=== PATIENT | male | born 1965 | race Caucasian/White ===

== ENCOUNTER → 2016-12-12 | Outpatient (CLI) | payer BC ==
--- NOTE | 2016-12-13 08:43 | XR ---
EXAMINATION TYPE: XR knee complete LT DATE OF EXAM: 12/12/2016 11:30 AM COMPARISON: NONE HISTORY: 51-year-old male medial left knee pain TECHNIQUE: 3 views FINDINGS: Marginal spurring within the patellofemoral compartment. There may be minimal narrowing of bicompartm ental joint space. Moderate knee joint effusion is noted. No acute fracture or dislocation. IMPRESSION: 1. Some degenerative changes at the knee, particularly the patellofemoral compartment. 2. No acute osseous abnormality seen. 3. However, there is a moderate knee joint effusion. If concern for internal derangement, MRI can be performed.
== END | disposition home or self-care (01) ==
LOC: RADXRYALE 11:13
PROVIDERS: ATTEND Family Medicine
DX: M25.862 Other specified joint disorders, left knee (principal); M25.462 Effusion, left knee

== ENCOUNTER → 2019-09-30 | Day surgery (SDC) | payer OTHER ==
[2019-09-26 10:45] VITALS: BMI 47.1
[~2019-09-30] MED LIST: LACTATED RINGERS 1,000 ML IV ONE; LACTATED RINGERS 1,000 ML IV SCH; LIDOCAINE 1% 20 ML VIAL (10MG/ML) FOR IV START INTRADERMA PRN; PROPOFOL 10 MG/ML 20 ML VIAL IV ONE
[2019-09-30 08:45] VITALS: TEMP 97.7
[2019-09-30 08:45] LABS: Glucose,Whole Blood 237 mg/dL (75-99)
--- NOTE | 2019-09-30 09:45 | P.PCN ---
Date of Procedure: 09/30/19 Description of Procedure: BRIEF HISTORY: Patient is a 54-year-old male presenting for outpatient colonoscopy for screening for malignant neoplasm of the colon. No prior colonoscopies reported. Denies any change in bowel habits, blood per rectum or abdominal pain. PROCEDURE PERFORMED: Colonoscopy with polypectomy. PREOPERATIVE DIAGNOSIS: Screening for malignant neoplasm colon, no prior colonoscopy reported. ESTIMATED BLOOD LOSS: Minimal. IV sedation per Anesthesia. PROCEDURE: After informed consent was obtained, the patient, was brought into the endoscopy unit. IV sedation was administered by Anesthesia under continuous monitoring. Digital rectal examination was normal. Initially the Olympus CF-190 flexible video colonoscope was then inserted in the rectum, gradually advanced into the cecum without any difficulty. Careful examination was performed as the scope was gradually being withdrawn. Ileocecal valve and the appendiceal orifice were visualized and appeared normal. Prep was excellent. Mucosa of the cecum, ascending colon, transverse colon, descending colon, sigmoid colon, and rectum appeared normal. A few scattered smallmouth diverticula noted throughout the colon. 2 flat ascending colon polyps measuring 4-5 mm in size were removed with cold snare polypectomy. Flat 4 mm transverse colon polyp removed with cold snare polypectomy. Retroflexion was performed in the rectum and no lesions were seen. The patient tolerated the procedure well. IMPRESSION: 3 polyps removed with cold snare polypectomy in the ascending colon and transverse colon. Mild pandiverticulosis. RECOMMENDATIONS: Findings of this examination were discussed with the patient and his . Okay to resume diet. Would recommend fiber supplementation given diverticulosis. On pathology from polypectomies. Okay to resume medications. Would recommend repeat colonoscopy in 5 years pending pathology from polypectomies.
[2019-09-30 09:46] VITALS: RESP 17
[2019-09-30 09:58] VITALS: BP 131/80; PULSE 90
== END ==
LOC: ORWHC2ENDO 07:52
PROVIDERS: ATTEND Internal Medicine
DX: Z12.11 Encounter for screening for malignant neoplasm of colon (principal); D12.2 Benign neoplasm of ascending colon; D12.3 Benign neoplasm of transverse colon; K57.30 Diverticulosis of large intestine without perforation or abscess without bleeding; I10 Essential (primary) hypertension; G47.33 Obstructive sleep apnea (adult) (pediatric); E11.9 Type 2 diabetes mellitus without complications; E07.9 Disorder of thyroid, unspecified; F41.9 Anxiety disorder, unspecified; E66.01 Morbid (severe) obesity due to excess calories; Z68.42 Body mass index [BMI] 45.0-49.9, adult; Z87.891 Personal history of nicotine dependence; Z88.6 Allergy status to analgesic agent; Z79.84 Long term (current) use of oral hypoglycemic drugs; Z79.890 Hormone replacement therapy; Z79.891 Long term (current) use of opiate analgesic; Z79.899 Other long term (current) drug therapy; Z86.69 Personal history of other diseases of the nervous system and sense organs; Z98.890 Other specified postprocedural states; Z98.1 Arthrodesis status; Z99.89 Dependence on other enabling machines and devices
CPT/HCPCS: 88305; 45385; J2704

== ENCOUNTER → 2022-06-27 | Outpatient (CLI) | payer OTHER ==
--- NOTE | 2022-06-27 13:47 | XR ---
EXAMINATION TYPE: XR thoracic spine complete DATE OF EXAM: 06/27/2022 CLINICAL HISTORY: pain TECHNIQUE: Frontal, lateral, and swimmer's view of thoracic spine are obtained. COMPARISON: None. FINDINGS: Thoracic spine show satisfactory alignment without evidence of acute fracture or dislocatio n. Vertebral body heights are preserved. Moderate degenerative disc space narrowing and spondylosis midthoracic spine. Visualized ribs are unremarkable. IMPRESSION: No acute fracture or dislocation is seen in the thoracic spine. ICD 10 NO FRACTURE, INIT IAL EVALUATION
--- NOTE | 2022-06-27 13:49 | XR ---
EXAMINATION TYPE: XR ribs RT w pa chest xray DATE OF EXAM: 06/27/2022 COMPARISON: NONE HISTORY: Pain TECHNIQUE: Single view of the chest 4 views of the ribs are submitted. FINDINGS: The lungs are clear. No Evidence for pneumothorax. No evidence for focal contusion. Medi astinal structures are midline. Evaluation of the ribs fails to demonstrate evidence for displaced r ib fracture or secondary sign of rib fracture. IMPRESSION: Negative study
== END | disposition home or self-care (01) ==
LOC: RADXRYALE 13:09
PROVIDERS: ATTEND Family Medicine
DX: M54.6 Pain in thoracic spine (principal); R07.89 Other chest pain
CPT/HCPCS: 72072

== ENCOUNTER 2022-07-19 10:55 | Emergency (ER) | payer OTHER ==
--- NOTE | 2022-07-19 11:37 | ED ---
Back Pain HPI - General Chief Complaint: Back Pain/Injury Stated Complaint: right side & back pain Time Seen by Provider: 07/19/22 11:01 Source: patient, family, RN notes reviewed Mode of arrival: ambulatory Limitations: no limitations - History of Present Illness Initial Comments: This is a 57-year-old male who presents to the emergency department for back pain. Patient states that this has been progressively worsening over the last 8-9 weeks. Pain is primarily in the mid back on the right side. He feels like the area is swollen, however the pain is deeper and not easily reproduced with pressing on this area. The pain feels dull and aching in nature, and he has occasions where it shoots up into the front of his abdomen. He does have a history of multiple muscular tears in his back, and wonders if this may be the cause. He has seen his primary care provider and had x-rays of the thoracic spine, and he has been told that this is musculoskeletal. States that at this point, the pain is taking his breath away and he is unable to lift anything, and walking is becoming difficult. He is taking [place] and muscle relaxers with little to no relief. Denies any radiation of pain down his legs. He has no loss of bowel or bladder control or saddle anesthesia. Denies any fevers, chills, sore throat, cough, palpitations, abdominal pain, nausea, vomiting, diarrhea, or headaches. MD Complaint: back pain Onset/Timin -: month(s) - Related Data Home Medications Medication Instructions Recorded Confirmed Levothyroxine Sodium [Synthroid] 137 mcg PO DAILY 01/04/16 07/19/22 ALPRAZolam [Xanax] 1 mg PO DAILY PRN 09/26/19 07/19/22 Ascorbic Acid [Vitamin C] 6,000 mg PO DAILY 07/19/22 07/19/22 Baclofen [Lioresal] 10 - 20 mg PO TID PRN 07/19/22 07/19/22 Calm Magnesium Drink 1 bottle PO HS 07/19/22 07/19/22 Dulaglutide [Trulicity] 3 mg SQ MO 07/19/22 07/19/22 Glimepiride [Amaryl] 4 mg PO BID 07/19/22 07/19/22 HYDROcodone/APAP 7.5-325MG [[place] 1 tab PO DAILY PRN 07/19/22 07/19/22 7.5-325] Turmeric(Unknown) 4 tab PO BID 07/19/22 07/19/22 Vitamin B Complex 1 cap PO DAILY 07/19/22 07/19/22 Vitamin D3 W/Vitamin K 1 tab PO DAILY 07/19/22 07/19/22 Zinc Gluconate [Zinc] 50 mg PO DAILY 07/19/22 07/19/22 sitaGLIPtin [Januvia] 100 mg PO DAILY 07/19/22 07/19/22 Previous Rx's Medication Instructions Recorded Orphenadrine [Norflex] 100 mg PO Q12H PRN #20 tab 07/19/22 lisinopriL [Prinivil] 10 mg PO DAILY #15 tab 07/19/22 predniSONE 50 mg PO DAILY 5 Days #5 tablet 07/19/22 Allergies Allergy/AdvReac Type Severity Reaction Status Date / Time aspirin AdvReac Abdominal Verified 07/19/22 12:22 Pain Review of Systems ROS Statement: Those systems with pertinent positive or pertinent negative responses have been documented in the HPI. ROS Other: All systems not noted in ROS Statement are negative. Past Medical History Past Medical History: CVA/TIA, Diabetes Mellitus, Myocardial Infarction ([place]), Sleep Apnea/CPAP/BIPAP, Thyroid Disorder Additional Past Medical History / Comment(s): states possible tia and silent [place] Last Myocardial Infarction Date:: ?silent History of Any Multi-Drug Resistant Organisms: None Reported Past Surgical History: Back Surgery, Orthopedic Surgery Additional Past Surgical History / Comment(s): aundrea carpal tunnel, neck fusion, lower back surgery, laminectomy and discectomy Past Anesthesia/Blood Transfusion Reactions: No Reported Reaction Past Psychological History: Anxiety Smoking Status: Never smoker Past Alcohol Use History: Occasional Past Drug Use History: None Reported - Past Family History Mother Family Medical History: No Reported History General Exam Limitations: no limitations General appearance: alert, in distress Head exam: Present: atraumatic, normocephalic, normal inspection Respiratory exam: Present: normal lung sounds bilaterally. Absent: respiratory distress, wheezes, rales, rhonchi, stridor Cardiovascular Exam: Present: regular rate, normal rhythm, normal heart sounds. Absent: systolic murmur, diastolic murmur, rubs, gallop, clicks GI/Abdominal exam: Present: normal bowel sounds. Absent: distended, tenderness, pulsatile mass Back exam: Present: normal inspection. Absent: full ROM (secondary to pain), tenderness Neurological exam: Present: alert, oriented X3, CN II-XII intact Psychiatric exam: Present: normal affect, normal mood Skin exam: Present: warm, dry, intact, normal color. Absent: rash Course Vital Signs 07/19/22 07/19/22 07/19/22 10:57 13:07 15:58 Temperature 98.2 F 97.9 F 97.8 F Pulse Rate 84 81 85 Respiratory 20 18 16 Rate Blood Pressure 202/98 218/113 204/98 O2 Sat by Pulse 96 94 L 93 L Oximetry 07/19/22 16:01 Temperature Pulse Rate 85 Respiratory 16 Rate Blood Pressure 184/121 O2 Sat by Pulse 93 L Oximetry Medical Decision Making - Medical Decision Making This is a 57-year-old male who presents to the emergency department with back pain. The patient does have multiple concerning comorbidities, including prior myocardial infarctions and TIAs. Given that he has already had x-rays with no identifiable findings, will obtain a computed tomography scan of the thoracic and lumbar spine as well as the abdomen and pelvis to look for other etiologies. Lab work obtained and found to be nonactionable, including infectious counts and inflammatory markers. My interpretation of the computed tomography scan of the abdomen and pelvis identifies no evidence of ureteral calculus, gallstones, or an aortic aneurysm. Interpretation of the computed tomography scan of the thoracic and lumbar spine identifies no signs of fractures or dislocations. Case discussed with the attending, Dr. Lee. He advised getting a d-dimer to look for signs of a pulmonary embolus. This was discussed with the patient, who states that he has had elevated d-dimer is in the past. His, the decision was made to proceed with the CTA of the chest without obtaining the d-dimer prior. My interpretation of the CTA chest reveals no evidence of a pulmonary embolus, localized consolidations, or infiltrates. He was given Decadron and Norflex through his IV, which he states offered some improvement to his symptoms. He was also given a dose of hydralazine due to his elevated blood pressure. Patient denies any history of blood pressure problems and states that it is due to his pain. Advised that his pain is likely playing a large role in this, however based on how elevated it is, he does likely have underlying hypertension. Blood pressure did improve to 184 systolically, I advised an additional dose of medication, however he declined despite my strongest recommendations. Prescription for a 5 day course of prednisone, Norflex, and lisinopril provided. Advised he avoid taking Norflex with the other muscle relaxant, as this will increase the sedative effects. He is also instructed to start taking the lisinopril daily, I advised that ongoing elevated blood pressure increases his risks for heart attack and stroke, which he has already had. He will need to follow-up with his primary care provider to see if continuing the lisinopril is indicated. Information for orthopedic follow-up with Dr. Hanley was provided. Instructed him to contact his office first thing in the morning for a follow-up appointment. Return precautions reviewed in depth, the patient is instructed to return to the emergency department with any new, worsening, or concerning symptoms. Patient verbalized understanding. This case was discussed in detail with the attending ED physician. Presentation, findings, and treatment plan discussed in detail as well. - Lab Data Result diagrams: 07/19/22 11:32 07/19/22 11:32 Lab Results 07/19/22 07/19/22 07/19/22 Range/Units 11:32 11:32 14:49 WBC 6.4 (3.8-10.6) k/uL RBC 6.05 H (4.30-5.90) m/uL Hgb 16.2 (13.0-17.5) gm/dL Hct 48.4 (39.0-53.0) % MCV 80.0 (80.0-100.0) fL MCH 26.7 (25.0-35.0) pg MCHC 33.4 (31.0-37.0) g/dL RDW 12.9 (11.5-15.5) % Plt Count 269 (150-450) k/uL MPV 8.5 Neutrophils % 57 % Lymphocytes % 31 % Monocytes % 7 % Eosinophils % 2 % Basophils % 1 % Neutrophils # 3.6 (1.3-7.7) k/uL Lymphocytes # 2.0 (1.0-4.8) k/uL Monocytes # 0.4 (0-1.0) k/uL Eosinophils # 0.2 (0-0.7) k/uL Basophils # 0.1 (0-0.2) k/uL ESR 4 (0-15) mm/hr Sodium 139 (137-145) mmol/L Potassium 4.6 (3.5-5.1) mmol/L Chloride 99 (98-107) mmol/L Carbon Dioxide 28 (22-30) mmol/L Anion Gap 12 mmol/L BUN 15 (9-20) mg/dL Creatinine 0.69 (0.66-1.25) mg/dL Est GFR (CKD-EPI)AfAm >90 (>60 ml/min/1.73 sqM) Est GFR (CKD-EPI)NonAf >90 (>60 ml/min/1.73 sqM) Glucose 187 H (74-99) mg/dL Calcium 9.5 (8.4-10.2) mg/dL Total Bilirubin 0.5 (0.2-1.3) mg/dL AST 28 (17-59) U/L ALT 39 (4-49) U/L Alkaline Phosphatase 44 (38-126) U/L C-Reactive Protein 0.5 (<1.0) mg/dL Total Protein 7.8 (6.3-8.2) g/dL Albumin 4.7 (3.5-5.0) g/dL Urine Color Light Yellow Urine Appearance Clear (Clear) Urine pH 5.0 (5.0-8.0) Ur Specific Colon 1.010 (1.001-1.035) Urine Protein Trace H (Negative) Urine Glucose (UA) 1+ H (Negative) Urine Ketones Negative (Negative) Urine Blood Negative (Negative) Urine Nitrite Negative (Negative) Urine Bilirubin Negative (Negative) Urine Urobilinogen <2.0 (<2.0) mg/dL Ur Leukocyte Esterase Negative (Negative) - Radiology Data Radiology results: report reviewed, image reviewed Disposition Clinical Impression: Thoracic back pain, Elevated blood pressure reading without diagnosis of hypertension Disposition: HOME SELF-CARE Instructions (If sedation given, give patient instructions): Back Pain (ED) Additional Instructions: Return to the emergency department with any new, worsening, or concerning symptoms. Take the prednisone daily for 5 days. You can take the Norflex twice daily as needed, however do not take the other muscle relaxant if you choose to take this. Also be aware that the Norflex will also be sedating. Begin taking the blood pressure medication daily. You will need to follow up with your primary care provider to discuss if this needs to be continued. Contact Dr. Hanley, orthopedics, as listed below for a follow-up appointment as soon as possible. Follow up with your primary care provider in 1-2 days. Prescriptions: Orphenadrine [Norflex] 100 mg PO Q12H PRN #20 tab PRN Reason: Pain predniSONE 50 mg PO DAILY 5 Days #5 tablet lisinopriL [Prinivil] 10 mg PO DAILY #15 tab Is patient prescribed a controlled substance at d/c from ED?: No Referrals: Telly Christian DO [Primary Care Provider] - 1-2 days Adam Hanley DO [Doctor of Osteopathic Medicine] - 1-2 days
[2022-07-19 11:38] LABS: Basophils # (A) 0.1 k/uL (0-0.2); Basophils % (A) 1 %; Eosinophils # (A) 0.2 k/uL (0-0.7); Eosinophils % (A) 2 %; HCT 48.4 % (39.0-53.0); HGB 16.2 gm/dL (13.0-17.5); Lymphocytes % (A) 31 %; MCH 26.7 pg (25.0-35.0); MCHC 33.4 g/dL (31.0-37.0); Mean Platelet Volume 8.5; Monocytes # (A) 0.4 k/uL (0-1.0); Monocytes % (A) 7 %; Neutrophils # (A) 3.6 k/uL (1.3-7.7); Neutrophils % (A) 57 %; Platelet Count 269 k/uL (150-450); RBC 6.05 m/uL (4.30-5.90); RDW 12.9 % (11.5-15.5); WBC 6.4 k/uL (3.8-10.6)
[2022-07-19 12:11] LABS: ALT 39 U/L (4-49); AST 28 U/L (17-59); African American GFR (CKD) >90 (>60 ml/min/1.73 sqM); Albumin 4.7 g/dL (3.5-5.0); Alkaline Phosphatase 44 U/L (38-126); Anion Gap 12 mmol/L; Blood Urea Nitrogen 15 mg/dL (9-20); C Reactive Protein 0.5 mg/dL (<1.0); Calcium 9.5 mg/dL (8.4-10.2); Carbon Dioxide 28 mmol/L (22-30); Chloride 99 mmol/L (98-107); Glucose 187 mg/dL (74-99); Non-African American GFR(CKD) >90 (>60 ml/min/1.73 sqM); Potassium 4.6 mmol/L (3.5-5.1); Sodium 139 mmol/L (137-145); Total Bilirubin 0.5 mg/dL (0.2-1.3); Total Protein 7.8 g/dL (6.3-8.2)
--- NOTE | 2022-07-19 13:18 | CT ---
EXAMINATION TYPE: CT abdomen pelvis wo con DATE OF EXAM: 07/19/2022 HISTORY: Back and Abdominal pain, No injury CT DLP: 4620.4 mGycm. Automated Exposure Control for Dose Reduction was Utilized. TECHNIQUE: CT scan of the abdomen and pelvis is performed without oral or IV contrast. CT of the tho racolumbar spine performed without contrast. COMPARISON: NONE FINDINGS: Within the limitations of a non-contrast study, the following observations are made. LUNG BASES: No significant abnormality is appreciated. LIVER/GB: Liver is diffusely low dense consistent with diffuse fatty infiltration. PANCREAS: No significant abnormality is seen. SPLEEN: No significant abnormality is seen. ADRENALS: No significant abnormality is seen. KIDNEYS: No renal stones or hydronephrosis seen bilaterally. Bladder wall mildly thickened up to 6 mm with some nondependent air suspected. Correlate clinically for recent catheterization otherwise othe r etiologies need to be considered. BOWEL: Diverticula in the left and sigmoid colon. No CT evidence for acute diverticulitis. Normal-rebeca earing appendix from base of cecum. GENITAL ORGANS: Normal size prostate. Adjacent scattered tiny pelvic phleboliths. LYMPH NODES: No greater than 1cm abdominal or pelvic lymph nodes are appreciated. OSSEOUS STRUCTURES: Moderate axial joint space loss both hips. OTHER: Small intramuscular lipoma anterior left thigh region coronal image 77 measures 3.0 x 1.2 cm. Thoracolumbar spine: Imaging the anterior superior T2 level. There are 5 lumbar-type vertebra. Verteb ral body heights and disc space heights are maintained through the thoracic and lumbar spine. No acut e displaced fracture. Vacuum disc phenomenon and disc calcification L4-L5 level. Spinal canal grossly preserved. Visualized ribs are intact bilaterally. Some lateral spurring in the lower thoracic spine is present. IMPRESSION: 1. Mild abnormal wall thickening to the bladder with nondependent air. Correlate to exclude gas-formi ng infection. Correlate for recent catheterization otherwise other etiologies need to be considered. Otherwise no acute findings are evident. No acute fracture or dislocation in the thoracic or lumbar s pine.
[2022-07-19] MEDS ORDERED: DEXAMETHASONE SOD PHOSPHATE 10 MG/ML 1 ML VIAL IVP STA (14:41)
[2022-07-19] MEDS ORDERED: ORPHENADRINE 30 MG/ML 2 ML VIAL IVP STA (14:41)
[2022-07-19] MEDS ORDERED: hydrALAZINE HCL 20 MG/ML 1 ML VIAL IVP STA (14:48)
[2022-07-19 15:12] LABS: Appearance,Urine Clear (Clear); Bilirubin,Urine Negative (Negative); Blood,Urine Negative (Negative); Color,Urine Light Yellow; Glucose,Urine (UA) 1+ (Negative); Ketones,Urine Negative (Negative); Leukocyte Esterase,Urine Negative (Negative); Nitrite,Urine Negative (Negative); Protein,Urine Trace (Negative); Urobilinogen,Urine <2.0 mg/dL (<2.0)
[2022-07-19 15:24] LABS: Erythrocyte Sedimentation Rate 4 mm/hr (0-15)
--- NOTE | 2022-07-19 15:29 | CT ---
EXAMINATION TYPE: CT chest angio for PE DATE OF EXAM: 07/19/2022 COMPARISON: None HISTORY: Chest/back pain, SOB. CT DLP: 891.8 mGycm CONTRAST: CT chest with contrast and 3D reconstruction with MIP imaging is performed with IV Contrast, patient injected with 100 mL of Isovue 370. Contrast-enhanced CT of the chest was performed through the course of the pulmonary arteries with julia g and mediastinal window settings submitted. 3D reconstruction with MIP imaging was also performed. PULMONARY ARTERIES: The pulmonary arteries and their major tributaries are patent. I do not see ike dence for sizable filling defect to suggest pulmonary embolic process. LUNGS: The lungs are clear and free of infiltrate. No evidence for atelectasis. No pulmonary nodule or mass is detected. No pleural effusion. MEDIASTINUM: Thoracic aorta is of normal caliber. Correlate clinically . The heart is not enlarged. No evidence for mediastinal mass. No mediastinal lymph nodes greater than 1cm. HILAR STRUCTURES: No evidence for mass. No hilar lymph nodes greater than 1 cm. UPPER ABDOMEN: No significant abnormality is seen. IMPRESSION: 1. No evidence for Pulmonary embolism at this time.
[2022-07-19 15:58] VITALS: PULSE 85; RESP 16; TEMP 97.8
[2022-07-19 16:01] VITALS: BP 184/121
== END 2022-07-19 16:40 | disposition home or self-care (01) ==
LOC: EC 10:55
DX: M54.6 Pain in thoracic spine (principal); R03.0 Elevated blood-pressure reading, without diagnosis of hypertension; Z86.73 Personal history of transient ischemic attack (TIA), and cerebral infarction without residual deficits; E11.9 Type 2 diabetes mellitus without complications; I25.2 Old myocardial infarction; E07.9 Disorder of thyroid, unspecified; Z88.6 Allergy status to analgesic agent; F41.9 Anxiety disorder, unspecified; Z79.890 Hormone replacement therapy; Z79.899 Other long term (current) drug therapy
CPT/HCPCS: 36415; 80053; 85652; 85025; 86140; 81003; 72128; 72131; 71275; 74176; 99284; 96374; 96375 ×2; J0360; J1100; J2360; Q9967

== ENCOUNTER → 2022-08-25 | Outpatient (CLI) | payer OTHER ==
--- NOTE | 2022-08-25 16:30 | NM ---
EXAMINATION TYPE: NM bone 3 phase DATE OF EXAM: 08/25/2022 COMPARISON: NONE HISTORY: Intercostal pain Triple phase bone scintigraphy was performed following the injection of 24 mCi Tc 99m MDP. Immediate images and 5.5 hours post injection images acquired. FINDINGS: Blood flow: There is normal blood distribution on the initial blood flow images. Normal Uptake is not ed within the heart. A suspicious focal accumulation is not identified. Blood pool: Blood pool distribution appears normal. Focal contrast is noted within the bilateral kidn eys appears symmetrical. Static images: There may be some uptake along the posterior right to a lesser degree left lower thora cic level. This appears to be T10 or possibly T11 region. This could be degenerative in nature. No co rresponding uptake on blood pool or blood flow images is evident. No suspicious focal uptake is otherwise identified. IMPRESSION: 1. Focal uptake static images that would appear to be the T10 region posteriorly could be related to degenerative change. Correlate with location of patient's pain. 2. Suspicious three-phase uptake to suggest infection is not identified.
== END | disposition home or self-care (01) ==
LOC: RADNMMAIN 07:01
PROVIDERS: ATTEND Family Medicine
DX: R07.82 Intercostal pain (principal); R07.89 Other chest pain
CPT/HCPCS: 78315; A9503

== ENCOUNTER → 2022-11-03 | Outpatient (CLI) | payer OTHER ==
[2022-11-03 08:46] VITALS: BP 199/99; PULSE 82; RESP 16; TEMP 98.6
--- NOTE | 2022-11-03 14:42 | P.PAINPG ---
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 Pt states he experienced 60 % pain relief x 3 wks s/p procedure. Pain level is provoked at 8 /10 in intensity, constant, localized in the thoracic spine, dull, sharp in character w shooting towards the R ribs. Pain is provoked by bending. Pain is alleviated with PT x 5 wks which he is currently in, home exercise regimen, massages from his , use of TENS unit at home, alternating heat & ice, medications ([place], Baclofen), topical, repositioning and rest. Interventional pain procedures completed include ROME T10-11 Patient is currently on [place], Baclofen Patient denies any side effects of the medication(s), denies excessive drowsiness or sleepiness, denies suicidal ideation and reports that the current pain medication is helping to control the pain and improve activities of daily living. Patient denies any motor or sensory deficits. Patient denies any fever or night sweats, denies any change in the bowel movements or urination. Physical Examination: -Constitutional: Cooperative. Not in acute distress . - Neurologic: Cranial nerve II to XII intact. No focal neurological deficits. - Psychatric: Alert & oriented x 3. Matching mood & appropriate affect. Judgment and insight intact. - Musculoskeletal: Cervical spine: Muscle bulk/ tone/ strength in the bilateral upper extremities normal Vertebral body tenderness to palpation over Sp[place]ling test positive Distraction test positive Facet loading test positive TTP Thoracic spine Muscle bulk / tone/ strength in the bilateral paraspinal muscles normal Vertebral body tender to palpation over over T10 Facet loading test positive TTP Lumbar spine: Motor bulk/ tone/ strength lower extremities , thigh and legs : 5/5 Deep tendon reflexes : Normal Knee Jerk. Normal Ankle Jerk . Vertebral body tenderness to palpation over Lumbar Facet Loading Test positive Straight Leg Raise: positive at 30 degrees right side/ left side Gaenslen's Test positive Sacral spine : Severe tenderness over the Sacroiliac joint: right side / left side Range of motion: Flexion of the lumbar spine <60 degrees Range of motion: Extension of the lumbar spine <20 degrees Gaenslen's Test positive right side / left side Machelle test: positive right side / left side Thigh Thrust Test positive right side / left side Sacral Thrust Test positive right side / left side Assessment and plan: Chronic mid back secondary to thoracic DDD, spondylosis with facet arthropathy without myelopathy Recommendation of R paramedian ROME T10-T11. May need a series of injections for optimal pain relief. Risks, benefits of procedure discussed and pt verbalized understanding. Admits to anticoagulant use or medical history of diabetes. Protocol for discontinuation/ continuation of medications tess procedure discussed. All questions answered. I have spent less than 30 minutes on patient care today. Dr Rascon was available by phone for the evaluation of this patient. The time was used to review the medical records including relevant urine studies and Prescription history (MAPs), review of the available imaging, evaluation and examination of the patient, coordination of care with the medical staff and if applicable referring physicians, as well as creation of the medical record PQRS Narrative: Smoking Status Former smoker Hx Alcohol Use (MH) No Home Medications: Ambulatory Orders Levothyroxine Sodium [Synthroid] 137 mcg PO DAILY 01/04/16 ALPRAZolam [Xanax] 1 mg PO DAILY PRN 09/26/19 Ascorbic Acid [Vitamin C] 6,000 mg PO DAILY 07/19/22 Baclofen [Lioresal] 10 - 20 mg PO TID PRN 07/19/22 Calm Magnesium Drink 1 bottle PO HS 07/19/22 HYDROcodone/APAP 7.5-325MG [[place] 7.5-325] 1 tab PO DAILY PRN 07/19/22 Turmeric(Unknown) 4 tab PO BID 07/19/22 Vitamin B Complex 1 cap PO DAILY 07/19/22 Vitamin D3 W/Vitamin K 1 tab PO DAILY 07/19/22 Zinc Gluconate [Zinc] 50 mg PO DAILY 07/19/22 sitaGLIPtin [Januvia] 100 mg PO DAILY 07/19/22 Controlled Substance Measures - Controlled Substance Measures Is patient prescribed a controlled substance at discharge?: No
== END ==
LOC: PNWHC3 07:58
PROVIDERS: ATTEND Specialist
DX: M51.34 Other intervertebral disc degeneration, thoracic region (principal); M47.814 Spondylosis without myelopathy or radiculopathy, thoracic region; Z88.6 Allergy status to analgesic agent; Z87.891 Personal history of nicotine dependence
CPT/HCPCS: 99211

== ENCOUNTER 2022-11-17 07:02 | Day surgery (SDC) | payer OTHER ==
[2022-11-17] MEDS ORDERED: LACTATED RINGERS 1,000 ML IV SCH (07:14)
[2022-11-17] MEDS ORDERED: LIDOCAINE 1% (10MG/ML) FOR IV START INTRADERMA PRN (07:14)
[2022-11-17 07:25] VITALS: TEMP 97.9
[2022-11-17 07:25] LABS: Glucose,Whole Blood 256 mg/dL (70-110)
[2022-11-17] MEDS ORDERED: INSULIN ASPART (NovoLOG) 100 UNIT/ML VIAL SQ ONE (07:38)
[2022-11-17] MEDS ORDERED: methylPREDNISolone ACETATE 40 MG/ML 1 ML VIAL ONE (07:53)
[2022-11-17] MEDS ORDERED: IOPAMIDOL M200 10 ML VIAL ONE (07:53)
--- NOTE | 2022-11-17 08:05 | P.PCN ---
Date of Procedure: 11/17/22 Procedure(s) Performed: PREOPERATIVE DIAGNOSIS: 1-Thoracic Degenerative Disc Diseases 2-Thoracic Radiculopathy. POSTOPERATIVE DIAGNOSIS: Same as preop diagnosis. PROCEDURE 1. Thoracic epidural steroid injection under fluoroscopic guidance at the T10- 11 level.( right paramedial ) (Fluoroscopy imaging was available in radiology department) 2. Thoracic epidurogram. ANESTHESIA: Local anesthesia with lidocaine 1% 3 mL only EBL: Minimal PROCEDURE INDICATION: The patient with mid back pain and radiculitis symptoms unresponsive to conservative treatment. Fluoroscopy was used to optimize visualization of the needle placement and to maximize safety. PROCEDURE DESCRIPTION / TECHNIQUE: The patient was seen and identified in the preoperative area. Risks, benefits, complications including but not limited to infections ,bleeding ,allergic reaction to the medications ,nerve damage and not complete pain releife , and alternatives were discussed with the patient. The patient agreed to proceed with the procedure and signed the consent. IV was started, and vital signs were sta ble. Patient was taken to the OR and time out was completed. The patient was placed in the prone position on procedure table and a pillow was placed under the abdomen to reduce lumbar lordosis. The thoracolumbar area was prepped and draped in the usual sterile fashion.ere closely monitored during the procedure.. Vital signs was monitered during the entire procedure. Using anterior-posterior fluoroscopy, the T10-11 ( right paramedial ) interlaminar space was identified and the skin over this site was marked and then infiltrated with 1% lidocaine subcutaneously. Subsequently, a 20-gauge T uohy epidural needle was inserted and advanced toward the epidural space using the ``Loss of resistance technique and guided by AP and lateral fluoroscopy. The correct needle position in the epidural space was verified with the injection of 2 mL of the water soluble contrast dye Isovue 200 contrast and observing an excellent epidurogram with the epidural spread of the dye, after negative aspiration for blood and CSF and in the absence of paresthesias. Again after negative aspiration, a 5 ml mixture containing 40 mg of Depo-medrol ( Preservetive Free ), and 2 ml of preservative free Normal Saline, and 2 ml of preservative free lidocaine 1% solution was injected and a washout of epidurogram was seen. Needle was withdrawn intact, skin was cleansed, and bandages were applied. COMPLICATIONS: None DISPOSITION / PLANS: The patient was placed in a supine position and transferred to the recovery area in a stable condition for observation. There was no evidence of lower extremity motor or sensory deficit after the procedure. Patient was discharged from the recovery room after meeting discharge criteria. Home discharge instructions were given to the patient by the staff. The patient was reexamined prior to discharge. The patient will schedule a follow up in the clinic in 2-4 weeks.
[2022-11-17] MEDS ORDERED: IV FLUID CONTINUATION 800 ML IV ONE (08:07)
[2022-11-17 08:09] VITALS: RESP 16
--- NOTE | 2022-11-17 08:11 | FL ---
Fluoroscopy INDICATION: Pain FINDINGS: Fluoroscopy time: 3 seconds. DAP: 0.85664 mGycm^2 Images obtained: 2. IMPRESSIONS: 1. Documentation of fluoroscopy.
[2022-11-17 08:23] VITALS: BP 175/96; PULSE 90
== END 2022-11-17 08:37 | disposition home or self-care (01) ==
LOC: ORPAIN 07:02
PROVIDERS: ATTEND Specialist
DX: M51.14 Intervertebral disc disorders with radiculopathy, thoracic region (principal)
CPT/HCPCS: 62321; J1030; Q9966

== ENCOUNTER → 2022-12-08 | Outpatient (CLI) | payer OTHER ==
[2022-12-08 08:36] VITALS: BP 215/100; PULSE 73; RESP 16; TEMP 98.2
--- NOTE | 2022-12-08 14:55 | P.PAINPG ---
PQRS Measure Charge Sheet Comment: A 57 yr old male with a history of severe and chronic mid back pain secondary to thoracic DDD and spondylosis with facet arthropathy without myelopathy presents today for evaluation s/p ROME T10-11. Pt states he experienced 80 % pain relief x 3 wks s/p procedure. Pain level is provoked at 7 /10 in intensity, constant, localized in the R thoracic spine, achy in character w/o shooting pain. Pain is provoked by over activity. Pain is alleviated with PT integrated w massage x 5 wks w 6 visits left which he is currently in, heat, ice, medications, repositioning and rest. Interventional pain procedures completed include ROME T10-11 Patient is currently on [place], [place], muscle relaxer Patient denies any side effects of the medication(s), denies excessive drowsiness or sleepiness, denies suicidal ideation and reports that the current pain medication is helping to control the pain and improve activities of daily living. Patient denies any motor or sensory deficits. Patient denies any fever or night sweats, denies any change in the bowel movements or urination. Physical Examination: -Constitutional: Cooperative. Not in acute distress . - Neurologic: Cranial nerve II to XII intact. No focal neurological deficits. - Psychatric: Alert & oriented x 3. Matching mood & appropriate affect. Judgment and insight intact. - Musculoskeletal: Cervical spine: Muscle bulk/ tone/ strength in the bilateral upper extremities normal Vertebral body tenderness to palpation over Spurling test positive Distraction test positive Facet loading test positive TTP Thoracic spine Muscle bulk / tone/ strength in the bilateral paraspinal muscles normal Vertebral body tender to palpation over T10 Diffuse TTP over R T8-T11 paraspinal muscles Facet loading test positive TTP Lumbar spine: Motor bulk/ tone/ strength lower extremities , thigh and legs : 5/5 Deep tendon reflexes : Normal Knee Jerk. Normal Ankle Jerk . Vertebral body tenderness to palpation over Lumbar Facet Loading Test positive Straight Leg Raise: positive at 30 degrees right side/ left side Gaenslen's Test positive Sacral spine : Severe tenderness over the Sacroiliac joint: right side / left side Range of motion: Flexion of the lumbar spine <60 degrees Range of motion: Extension of the lumbar spine <20 degrees Gaenslen's Test positive right side / left side Machelle test: positive right side / left side Thigh Thrust Test positive right side / left side Sacral Thrust Test positive right side / left side Assessment and plan: Chronic mid back pain secondary to thoracic DDD, spondylosis with facet arthropathy without myelopathy Recommendation of ROME T10-11. May need a series of injections for optimal pain relief.. Risks, benefits of procedure discussed and pt verbalized understanding. Admits to anticoagulant use or medical history of diabetes. Protocol for discontinuation/ continuation of medications tess procedure discussed. All questions answered. I have spent less than 30 minutes on patient care today. Dr Rascon was available by phone for the evaluation of this patient. The time was used to review the medical records including relevant urine studies and Prescription history (MAPs), review of the available imaging, evaluation and examination of the patient, coordination of care with the medical staff and if applicable referring physicians, as well as creation of the medical record PQRS Narrative: Smoking Status Former smoker Hx Alcohol Use (MH) No Home Medications: Ambulatory Orders Levothyroxine Sodium [Synthroid] 137 mcg PO DAILY 01/04/16 ALPRAZolam [Xanax] 1 mg PO DAILY PRN 09/26/19 Ascorbic Acid [Vitamin C] 6,000 mg PO DAILY 07/19/22 Calm Magnesium Drink 1 bottle PO HS 07/19/22 HYDROcodone/APAP 7.5-325MG [[place] 7.5-325] 1 tab PO DAILY PRN 07/19/22 Turmeric(Unknown) 4 tab PO BID 07/19/22 Vitamin B Complex 1 cap PO DAILY 07/19/22 Vitamin D3 W/Vitamin K 1 tab PO DAILY 07/19/22 Zinc Gluconate [Zinc] 50 mg PO DAILY 07/19/22 sitaGLIPtin [Januvia] 100 mg PO DAILY 07/19/22 Controlled Substance Measures - Controlled Substance Measures Is patient prescribed a controlled substance at discharge?: No
== END ==
LOC: PNWHC3 07:05
PROVIDERS: ATTEND Specialist
DX: M51.34 Other intervertebral disc degeneration, thoracic region (principal); M47.816 Spondylosis without myelopathy or radiculopathy, lumbar region; G89.29 Other chronic pain; Z87.891 Personal history of nicotine dependence; Z88.6 Allergy status to analgesic agent
CPT/HCPCS: 99211

== ENCOUNTER 2022-12-22 09:12 | Day surgery (SDC) | payer OTHER ==
[2022-12-22 09:35] VITALS: RESP 18; TEMP 98.3
[2022-12-22] MEDS ORDERED: LACTATED RINGERS 1,000 ML IV ONE (09:45)
[2022-12-22 09:46] LABS: Glucose,Whole Blood 237 mg/dL (70-110)
[2022-12-22] MEDS ORDERED: INSULIN ASPART (NovoLOG) 100 UNIT/ML VIAL SQ ONE (09:54)
[2022-12-22] MEDS ORDERED: methylPREDNISolone ACETATE 40 MG/ML 1 ML VIAL ONE (10:20)
[2022-12-22] MEDS ORDERED: fentaNYL (PF) 50 MCG/ML 2 ML AMP ONE (10:20)
[2022-12-22] MEDS ORDERED: MIDAZOLAM 2 MG/2 ML VIAL ONE (10:20)
[2022-12-22] MEDS ORDERED: IOPAMIDOL M200 10 ML VIAL ONE (10:20)
--- NOTE | 2022-12-22 10:32 | P.PCN ---
Date of Procedure: 12/22/22 Procedure(s) Performed: PREOPERATIVE DIAGNOSIS: 1-Thoracic Degenerative Disc Diseases 2-Thoracic Radiculopathy. POSTOPERATIVE DIAGNOSIS: Same as preop diagnosis. PROCEDURE 1. Thoracic epidural steroid injection under fluoroscopic guidance at the T10- 11 level.( right paramedial ) (Fluoroscopy imaging was available in radiology department) 2. Thoracic epidurogram. ANESTHESIA: moderate sedation with intravenous Versed 2 mg ,and fentanyle 100 Mcg Sedation start time : 1020 Sedation end time : 1030 EBL: Minimal PROCEDURE INDICATION: The patient with mid back pain and radiculitis symptoms unresponsive to conservative treatment. Fluoroscopy was used to optimize visualization of the needle placement and to maximize safety. PROCEDURE DESCRIPTION / TECHNIQUE: The patient was seen and identified in the preoperative area. Risks, benefits, complications including but not limited to infections ,bleeding ,allergic reaction to the medications ,nerve damage and not complete pain releife , and alternatives were discussed with the patient. The patient agreed to proceed with the procedure and signed the consent. IV was started, and vital signs were stable. Patient was taken to the OR and time out was completed. The patient was placed in the prone position on procedure table and a pillow was placed under the abdomen to reduce lumbar lordosis. The lumbosacral area was prepped and draped in the usual sterile fashion.ere closely monitored during the procedure. Conscious sedation was used during the procedure to decrease patients anxiety. Vital signs was monitered during the entire procedure. Using anterior-posterior fluoroscopy, the T10-11 ( right paramedial ) interlaminar space was identified and the skin over this site was marked and then infiltrated with 1% lidocaine subcutaneously. Subsequently, a 20-gauge Tuohy epidural needle was inserted and advanced toward the epidural space using the ``Loss of resistance technique and guided by AP and lateral fluoroscopy. The correct needle position in the epidural space was verified with the injection of 2 mL of the water soluble contrast dye Isovue 200 contrast and observing an excellent epidurogram with the epidural spread of the dye, after negative aspiration for blood and CSF and in the absence of paresthesias. Again after negative aspiration, a 5 ml mixture containing 40 mg of Depo-medrol ( Preservetive Free ), and 2 ml of preservative free Normal Saline, and 2 ml of preservative free lidocaine 1% solution was injected and a washout of epidurogram was seen. Needle was withdrawn intact, skin was cleansed, and b andages were applied. COMPLICATIONS: None DISPOSITION / PLANS: The patient was placed in a supine position and transferred to the recovery area in a stable condition for observation. There was no ike dence of lower extremity motor or sensory deficit after the procedure. Patient was discharged from the recovery room after meeting discharge criteria. Home discharge instructions were given to the patient by the staff. The patient was reexamined prior to discharge. The patient will schedule a follow up in the clinic in 2-4 weeks.
[2022-12-22] MEDS ORDERED: IV FLUID CONTINUATION 700 ML IV ONE (10:38)
[2022-12-22 10:48] LABS: Glucose,Whole Blood 242 mg/dL (70-110)
[2022-12-22 11:11] VITALS: BP 167/82; PULSE 76
--- NOTE | 2022-12-22 15:50 | FL ---
EXAMINATION TYPE: FL guided pain mgmt statistic DATE OF EXAM: 12/22/2022 FLUOROSCOPY Fluoroscopy time of 2 seconds was used during thoracic epidural injection. 1 image/s document/s the procedure. DOSE AREA PRODUCT (DAP) UGY*M,MGY*CM: 0.0136.
== END 2022-12-22 11:10 | disposition home or self-care (01) ==
LOC: ORPAIN 09:12
PROVIDERS: ATTEND Specialist
DX: M51.14 Intervertebral disc disorders with radiculopathy, thoracic region (principal); Z88.6 Allergy status to analgesic agent
CPT/HCPCS: 62321; 99152; J2250; J1030; J3010; Q9966

== ENCOUNTER → 2023-01-09 | Outpatient (CLI) | payer OTHER ==
[2023-01-09 08:48] VITALS: BP 173/109; PULSE 75; RESP 18; TEMP 98.4
--- NOTE | 2023-01-12 07:40 | P.PAINPG ---
PQRS Measure Charge Sheet Comment: A 57 yr old male with a history of severe and chronic mid back pain secondary to thoracic DDD and spondylosis with facet arthropathy without myelopathy presents today for evaluation s/p ROME T10-11. Pt states he experienced 80% pain relief x 3 wks s/p procedure. Pain level is provoked at 5/10 in intensity, constant, localized in the R thoracic spine, stinging in character w shooting towards the R flank. Pain is provoked by . Pain is alleviated with PT x 6 wks in December 2022, medications, topical, laser light therapy, repositioning and rest. Interventional pain procedures completed include R paramedian ROME T10-11 x3 Patient is currently on [place] from Dr Vivar Patient denies any side effects of the medication(s), denies excessive drowsiness or sleepiness, denies suicidal ideation and reports that the current pain medication is helping to control the pain and improve activities of daily living. Patient denies any motor or sensory deficits. Patient denies any fever or night sweats, denies any change in the bowel movements or urination. Physical Examination: -Constitutional: Cooperative. Not in acute distress . - Neurologic: Cranial nerve II to XII intact. No focal neurological deficits. - Psychatric: Alert & oriented x 3. Matching mood & appropriate affect. Judgment and insight intact. - Musculoskeletal: Cervical spine: Muscle bulk/ tone/ strength in the bilateral upper extremities normal Vertebral body tenderness to palpation over Spurling test positive Distraction test positive Facet loading test positive TTP Thoracic spine Muscle bulk / tone/ strength in the bilateral paraspinal muscles normal Vertebral body tender to palpation over Facet loading test positive TTP Lumbar spine: Motor bulk/ tone/ strength lower extremities , thigh and legs : 5/5 Deep tendon reflexes : Normal Knee Jerk. Normal Ankle Jerk . Vertebral body tenderness to palpation over Lumbar Facet Loading Test positive Straight Leg Raise: positive at 30 degrees right side/ left side Gaenslen's Test positive Sacral spine : Severe tenderness over the Sacroiliac joint: right side / left side Range of motion: Flexion of the lumbar spine <60 degrees Range of motion: Extension of the lumbar spine <20 degrees Gaenslen's Test positive right side / left side Machelle test: positive right side / left side Thigh Thrust Test positive right side / left side Sacral Thrust Test positive right side / left side Assessment and plan: Chronic mid back pain secondary to thoracic DDD, spondylosis with facet arthropathy without myelopathy Pt will manage residual pain at home and may return to clinic on an as needed basis. Urged pt to go to ER downstairs to manage elevated blood pressure. Dangers of elevated BP discussed and pt verbalized understanding. All questions answered. I have spent less than 30 minutes on patient care today. Dr Rascon was available by phone for the evaluation of this patient. The time was used to review the medical records including relevant urine studies and Prescription history (MAPs), review of the available imaging, evaluation and examination of the patient, coordination of care with the medical staff and if applicable referring physicians, as well as creation of the medical record PQRS Narrative: Smoking Status Former smoker Hx Alcohol Use (MH) No Home Medications: Ambulatory Orders Levothyroxine Sodium [Synthroid] 137 mcg PO DAILY 01/04/16 ALPRAZolam [Xanax] 1 mg PO DAILY PRN 09/26/19 Ascorbic Acid [Vitamin C] 6,000 mg PO DAILY 07/19/22 Calm Magnesium Drink 1 bottle PO HS 07/19/22 HYDROcodone/APAP 7.5-325MG [[place] 7.5-325] 1 tab PO DAILY PRN 07/19/22 Turmeric(Unknown) 4 tab PO BID 07/19/22 Vitamin B Complex 1 cap PO DAILY 07/19/22 Vitamin D3 W/Vitamin K 1 tab PO DAILY 07/19/22 Zinc Gluconate [Zinc] 50 mg PO DAILY 07/19/22 sitaGLIPtin [Januvia] 100 mg PO DAILY 07/19/22 Controlled Substance Measures - Controlled Substance Measures Is patient prescribed a controlled substance at discharge?: No
== END ==
LOC: PNWHC3 08:02
PROVIDERS: ATTEND Specialist
DX: M51.34 Other intervertebral disc degeneration, thoracic region (principal); M47.814 Spondylosis without myelopathy or radiculopathy, thoracic region; G89.29 Other chronic pain; Z87.891 Personal history of nicotine dependence; Z88.6 Allergy status to analgesic agent
CPT/HCPCS: 99211

== ENCOUNTER → 2023-01-12 | Outpatient (CLI) | payer OTHER ==
--- NOTE | 2023-01-12 13:15 | XR ---
EXAMINATION TYPE: XR foot complete RT DATE OF EXAM: 01/12/2023 COMPARISON: NONE HISTORY: 57-year-old male [id number], M130 RT FOOT PAIN, POLYARTHRITIS TECHNIQUE: 4 views FINDINGS: An additional obliqued lateral view was performed to demonstrate a lump along the lateral d orsal midfoot. No associated calcifications are present in this region. No underlying periostitis or osteophytosis. Mild to moderate degenerative change first MTP joint. Bipartite fibular sesamoid. Smal l posterior and plantar spurs. No acute fracture, subluxation, dislocation seen. IMPRESSION: 1. No acute osseous abnormality seen. Mbln-or-imdaedkw first MTP joint OA and small posterior and suleman ntar heels spurs. 2. Soft tissue protuberance along the dorsolateral midfoot. No associated calcifications or underlyin g bony abnormality seen. Consider either MRI or targeted ultrasound evaluation.
== END | disposition home or self-care (01) ==
LOC: RADXRYALE 08:55
PROVIDERS: ATTEND Family Medicine
DX: M79.671 Pain in right foot (principal); M13.0 Polyarthritis, unspecified

== ENCOUNTER 2024-09-24 01:14 | Inpatient (IN) | payer OTHER ==
--- NOTE | 2024-09-24 01:21 | ED ---
Neuro HPI - General Stated Complaint: Weakness Time Seen by Provider: 09/24/24 01:17 Source: RN notes reviewed, old records reviewed Mode of arrival: EMS Limitations: altered mental status - History of Present Illness Is the patient presenting with stroke symptoms?: Yes -: minutes(s) (5), hour(s) (5) Initial Comments: This is a 59-year-old male to ER with slurred speech expressive aphasia right- sided facial droop right-sided arm weakness Alona a leg weakness history of CVA TIA coming in for symptoms that were noticed when he went to the bathroom tonight. Patient states he went to bed around 9 was quite unsure why he went to bed at 9 was not feeling well and has a significantly early bedtime for him here does reiterate that patient was having difficulty changing the TV and turning the TV off prior to going to bed probably around 8:00 Location: speech, right face, right arm, right leg Place: home Severity: moderate Quality: weak, numb, tingling Improves With: none Worsens With: none Context: gradual onset Associated Symptoms: confusion Treatments Prior to Arrival: none - Related Data Home Medications: Home Medications Medication Instructions Recorded Confirmed Levothyroxine Sodium [Synthroid] 137 mcg PO DAILY 01/04/16 09/24/24 Berberine Chloride [Berberine] 500 mg PO DAILY 09/24/24 09/24/24 Cholecalciferol (Vitamin D3) 75 mcg PO DAILY 09/24/24 09/24/24 [Vitamin D3 (3000 Iu)] Multivitamins, Thera [Multivitamin 1 tab PO DAILY 09/24/24 09/24/24 (formulary)] Nitric Oxide (Unknown Dose) 1 dose PO DAILY 09/24/24 09/24/24 Turmeric Root Extract [Turmeric 500 mg PO DAILY 09/24/24 09/24/24 Curcumin] Previous Rx's Medication Instructions Recorded Apixaban [Eliquis] 5 mg PO BID tab 09/30/24 Aspirin 81 mg PO DAILY tab 09/30/24 Atorvastatin [Lipitor] 80 mg PO HS tab 09/30/24 Dapagliflozin Propanediol [Farxiga] 10 mg PO DAILY tab 09/30/24 Fenofibrate [Lofibra] 160 mg PO DAILY tab 09/30/24 INSULIN ASPART (NovoLOG) [NovoLOG See Rx Instructions .ROUTE 09/30/24 (formulary)] .COMPLEX each Insulin Glargine (Lantus) [Lantus 15 unit SQ DAILY@0700 each 09/30/24 Vial] Losartan [Cozaar] 50 mg PO DAILY tab 09/30/24 Metoprolol Tartrate [Lopressor] 25 mg PO BID tab 09/30/24 polyethylene glycoL 3350 [Miralax] 17 gm PO HS packet 09/30/24 Allergies/Adverse Reactions: Allergies Allergy/AdvReac Type Severity Reaction Status Date / Time aspirin AdvReac Abdominal Verified 09/24/24 08:26 Pain Review of Systems ROS Statement: Those systems with pertinent positive or pertinent negative responses have been documented in the HPI. ROS Other: All systems not noted in ROS Statement are negative. General Exam - General Exam Comments Initial Comments: NIH 4 expressive aphasia General appearance: alert, in no apparent distress Head exam: Present: atraumatic, normocephalic, normal inspection Eye exam: Present: normal appearance, PERRL, EOMI. Absent: scleral icterus, conjunctival injection, periorbital swelling ENT exam: Present: normal exam, mucous membranes moist Neck exam: Present: normal inspection. Absent: tenderness, meningismus, lymph adenopathy Respiratory exam: Present: normal lung sounds bilaterally. Absent: respiratory distress, wheezes, rales, rhonchi, stridor Cardiovascular Exam: Present: regular rate, normal rhythm, normal heart sounds. Absent: systolic murmur, diastolic murmur, rubs, gallop, clicks GI/Abdominal exam: Present: soft, normal bowel sounds. Absent: distended, tenderness, guarding, rebound, rigid Extremities exam: Present: normal inspection, full ROM, normal capillary refill. Absent: tenderness, pedal edema, joint swelling, calf tenderness Back exam: Present: normal inspection Neurological exam: Present: alert, oriented X3, CN II-XII intact Psychiatric exam: Present: normal affect, normal mood Skin exam: Present: warm, dry, intact, normal color. Absent: rash Stroke MDM - Lab Data Result diagrams: 09/29/24 05:46 09/29/24 05:46 Lab Results 09/24/24 09/24/24 09/24/24 Range/Units 01:23 01:23 01:23 WBC 5.7 (3.8-10.6) k/uL RBC 5.90 (4.30-5.90) m/uL Hgb 16.0 (13.0-17.5) gm/dL Hct 49.5 (39.0-53.0) % MCV 83.8 (80.0-100.0) fL MCH 27.1 (25.0-35.0) pg MCHC 32.3 (31.0-37.0) g/dL RDW 13.6 (11.5-15.5) % Plt Count 220 (150-450) k/uL MPV 9.7 Neutrophils % 56 % Lymphocytes % 32 % Monocytes % 8 % Eosinophils % 1 % Basophils % 1 % Neutrophils # 3.2 (1.3-7.7) k/uL Lymphocytes # 1.8 (1.0-4.8) k/uL Monocytes # 0.4 (0-1.0) k/uL Eosinophils # 0.1 (0-0.7) k/uL Basophils # 0.1 (0-0.2) k/uL PT 10.4 (10.0-12.5) sec INR 0.9 (<1.2) APTT 22.8 (22.0-30.0) sec Sodium 133 L (137-145) mmol/L Potassium 4.6 (3.5-5.1) mmol/L Chloride 94 L (98-107) mmol/L Carbon Dioxide 27 (22-30) mmol/L Anion Gap 12 mmol/L BUN 21 H (9-20) mg/dL Creatinine 0.82 (0.66-1.25) mg/dL Est GFR (CKD-EPI)AfAm >90 (>60 ml/min/1.73 sqM) Est GFR (CKD-EPI)NonAf >90 (>60 ml/min/1.73 sqM) Glucose 469 H (74-99) mg/dL Estimated Ave Glu mg/dL mg/dL Hemoglobin A1c (<=6.0) % Calcium 9.3 (8.4-10.2) mg/dL Total Bilirubin 0.4 (0.2-1.3) mg/dL AST 23 (17-59) U/L ALT 33 (4-49) U/L Alkaline Phosphatase 56 (38-126) U/L Creatine Kinase 109 (55-170) U/L Troponin I (0.000-0.034) ng/mL Total Protein 7.4 (6.3-8.2) g/dL Albumin 4.4 (3.5-5.0) g/dL Triglycerides (0.00-149.00) mg/dL Cholesterol (0.00-200.00) mg/dL LDL Cholesterol Direct (0.00-129.00) mg/dL LDL Cholesterol, Calc mg/dL VLDL Cholesterol, Calc (5.00-40.00) mg/dL HDL Cholesterol (40.00-60.00) mg/dL Cholesterol/HDL Ratio Ratio TSH (0.465-4.680) mIU/L Urine Color Urine Appearance (Clear) Urine pH (5.0-8.0) Ur Specific [place] (1.001-1.035) Urine Protein (Negative) Urine Glucose (UA) (Negative) Urine Ketones (Negative) Urine Blood (Negative) Urine Nitrite (Negative) Urine Bilirubin (Negative) Urine Urobilinogen (<2.0) mg/dL Ur Leukocyte Esterase (Negative) Urine Opiates Screen (NotDetected) Ur Oxycodone Screen (NotDetected) Urine Methadone Screen (NotDetected) Ur Barbiturates Screen (NotDetected) U Tricyclic Antidepress (NotDetected) Ur Phencyclidine Scrn (NotDetected) Ur Amphetamines Screen (NotDetected) U Methamphetamines Scrn (NotDetected) U Benzodiazepines Scrn (NotDetected) Urine Cocaine Screen (NotDetected) U Marijuana (THC) Screen (NotDetected) Serum Alcohol <10 mg/dL 09/24/24 09/24/24 09/24/24 Range/Units 01:23 01:23 01:23 WBC (3.8-10.6) k/uL RBC (4.30-5.90) m/uL Hgb (13.0-17.5) gm/dL Hct (39.0-53.0) % MCV (80.0-100.0) fL MCH (25.0-35.0) pg MCHC (31.0-37.0) g/dL RDW (11.5-15.5) % Plt Count (150-450) k/uL MPV Neutrophils % % Lymphocytes % % Monocytes % % Eosinophils % % Basophils % % Neutrophils # (1.3-7.7) k/uL Lymphocytes # (1.0-4.8) k/uL Monocytes # (0-1.0) k/uL Eosinophils # (0-0.7) k/uL Basophils # (0-0.2) k/uL PT (10.0-12.5) sec INR (<1.2) APTT (22.0-30.0) sec Sodium (137-145) mmol/L Potassium (3.5-5.1) mmol/L Chloride (98-107) mmol/L Carbon Dioxide (22-30) mmol/L Anion Gap mmol/L BUN (9-20) mg/dL Creatinine (0.66-1.25) mg/dL Est GFR (CKD-EPI)AfAm (>60 ml/min/1.73 sqM) Est GFR (CKD-EPI)NonAf (>60 ml/min/1.73 sqM) Glucose (74-99) mg/dL Estimated Ave Glu mg/dL 326 mg/dL Hemoglobin A1c 13.0 H (<=6.0) % Calcium (8.4-10.2) mg/dL Total Bilirubin (0.2-1.3) mg/dL AST (17-59) U/L ALT (4-49) U/L Alkaline Phosphatase (38-126) U/L Creatine Kinase (55-170) U/L Troponin I 0.015 (0.000-0.034) ng/mL Total Protein (6.3-8.2) g/dL Albumin (3.5-5.0) g/dL Triglycerides (0.00-149.00) mg/dL Cholesterol (0.00-200.00) mg/dL LDL Cholesterol Direct (0.00-129.00) mg/dL LDL Cholesterol, Calc mg/dL VLDL Cholesterol, Calc (5.00-40.00) mg/dL HDL Cholesterol (40.00-60.00) mg/dL Cholesterol/HDL Ratio Ratio TSH 3.070 (0.465-4.680) mIU/L Urine Color Urine Appearance (Clear) Urine pH (5.0-8.0) Ur Specific [place] (1.001-1.035) Urine Protein (Negative) Urine Glucose (UA) (Negative) Urine Ketones (Negative) Urine Blood (Negative) Urine Nitrite (Negative) Urine Bilirubin (Negative) Urine Urobilinogen (<2.0) mg/dL Ur Leukocyte Esterase (Negative) Urine Opiates Screen (NotDetected) Ur Oxycodone Screen (NotDetected) Urine Methadone Screen (NotDetected) Ur Barbiturates Screen (NotDetected) U Tricyclic Antidepress (NotDetected) Ur Phencyclidine Scrn (NotDetected) Ur Amphetamines Screen (NotDetected) U Methamphetamines Scrn (NotDetected) U Benzodiazepines Scrn (NotDetected) Urine Cocaine Screen (NotDetected) U Marijuana (THC) Screen (NotDetected) Serum Alcohol mg/dL 09/24/24 09/24/24 Range/Units 01:23 01:31 WBC (3.8-10.6) k/uL RBC (4.30-5.90) m/uL Hgb (13.0-17.5) gm/dL Hct (39.0-53.0) % MCV (80.0-100.0) fL MCH (25.0-35.0) pg MCHC (31.0-37.0) g/dL RDW (11.5-15.5) % Plt Count (150-450) k/uL MPV Neutrophils % % Lymphocytes % % Monocytes % % Eosinophils % % Basophils % % Neutrophils # (1.3-7.7) k/uL Lymphocytes # (1.0-4.8) k/uL Monocytes # (0-1.0) k/uL Eosinophils # (0-0.7) k/uL Basophils # (0-0.2) k/uL PT (10.0-12.5) sec INR (<1.2) APTT (22.0-30.0) sec Sodium (137-145) mmol/L Potassium (3.5-5.1) mmol/L Chloride (98-107) mmol/L Carbon Dioxide (22-30) mmol/L Anion Gap mmol/L BUN (9-20) mg/dL Creatinine (0.66-1.25) mg/dL Est GFR (CKD-EPI)AfAm (>60 ml/min/1.73 sqM) Est GFR (CKD-EPI)NonAf (>60 ml/min/1.73 sqM) Glucose (74-99) mg/dL Estimated Ave Glu mg/dL mg/dL Hemoglobin A1c (<=6.0) % Calcium (8.4-10.2) mg/dL Total Bilirubin (0.2-1.3) mg/dL AST (17-59) U/L ALT (4-49) U/L Alkaline Phosphatase (38-126) U/L Creatine Kinase (55-170) U/L Troponin I (0.000-0.034) ng/mL Total Protein (6.3-8.2) g/dL Albumin (3.5-5.0) g/dL Triglycerides 675.00 H (0.00-149.00) mg/dL Cholesterol 292.00 H (0.00-200.00) mg/dL LDL Cholesterol Direct 168.00 H (0.00-129.00) mg/dL LDL Cholesterol, Calc mg/dL VLDL Cholesterol, Calc 135.00 H (5.00-40.00) mg/dL HDL Cholesterol 30.80 L (40.00-60.00) mg/dL Cholesterol/HDL Ratio 9.48 Ratio TSH (0.465-4.680) mIU/L Urine Color Colorless Urine Appearance Clear (Clear) Urine pH 5.0 (5.0-8.0) Ur Specific [place] 1.032 (1.001-1.035) Urine Protein Trace H (Negative) Urine Glucose (UA) 4+ H (Negative) Urine Ketones 1+ H (Negative) Urine Blood Negative (Negative) Urine Nitrite Negative (Negative) Urine Bilirubin Negative (Negative) Urine Urobilinogen <2.0 (<2.0) mg/dL Ur Leukocyte Esterase Negative (Negative) Urine Opiates Screen Not Detected (NotDetected) Ur Oxycodone Screen Not Detected (NotDetected) Urine Methadone Screen Not Detected (NotDetected) Ur Barbiturates Screen Not Detected (NotDetected) U Tricyclic Antidepress Not Detected (NotDetected) Ur Phencyclidine Scrn Not Detected (NotDetected) Ur Amphetamines Screen Not Detected (NotDetected) U Methamphetamines Scrn Not Detected (NotDetected) U Benzodiazepines Scrn Not Detected (NotDetected) Urine Cocaine Screen Not Detected (NotDetected) U Marijuana (THC) Screen Not Detected (NotDetected) Serum Alcohol mg/dL - NIH Stroke Scale 1a. Level of Consciousness: (0) alert 1b. LOC Questions: (1) answers 1 question correctly 2. Best Gaze: (0) normal 3. Visual: (0) no visual loss 4. Facial Palsy: (1) minor paralysis 5a. Motor Arm Left: (0) no drift 5b. Motor Arm Right: (1) drift 6a. Motor Leg Left: (0) no drift 6b. Motor Leg Right: (1) drift 7. Limb Ataxia: (1) present 1 limb 8. Sensory: (0) normal 9. Best Language: (1) mild/moderate aphasia 10. Dysarthria: (1) mild/moderate dysarthria 11. Extinction/Inattention: (0) no abnormality - Thrombolytic Inclusion/Exclusion Thrombolytic Exclusion Criteria: Symptom Onset > 4.5 Hours - Medical Decision Making 59 male will be admitted for acute CVA new onset atrial fibrillation with RVR no tPA candidate secondary to onset of symptoms - Radiology Data Radiology results: report reviewed (CT brain and CTA head neck positive for torturous disease and artery), image reviewed - EKG Data -: EKG Interpreted by Me (EKG is A-fib with RVR 101 QRS 131 QTc 414) Past Medical History Past Medical History: CVA/TIA, Diabetes Mellitus, Myocardial Infarction (NH), Sleep Apnea/CPAP/BIPAP, Thyroid Disorder Additional Past Medical History / Comment(s): states possible tia and silent M I,uses bipap, Last Myocardial Infarction Date:: ?silent History of Any Multi-Drug Resistant Organisms: None Reported Past Surgical History: Back Surgery, Orthopedic Surgery Additional Past Surgical History / Comment(s): aundrea carpal tunnel, neck fusion, lower back surgery, laminectomy and discectomy Past Anesthesia/Blood Transfusion Reactions: No Reported Reaction Past Psychological History: Anxiety Smoking Status: Former smoker Past Alcohol Use History: Rare Additional Past Alcohol Use History / Comment(s): quit 15 yrs ago Past Drug Use History: None Reported Additional Drug Use History / Comment(s): CBD oil occasional not to use 24 hours prior - Past Family History Mother Family Medical History: No Reported History Course Vital Signs 09/24/24 09/24/24 09/24/24 01:17 02:18 02:30 Temperature 97.5 F L Pulse Rate 101 H 88 86 Pulse Rate [ Newspaper Photojournalist ] Respiratory 18 18 18 Rate Blood Pressure 188/114 153/90 174/98 Blood Pressure [Right Arm] O2 Sat by Pulse 94 L 93 L 98 Oximetry 09/24/24 09/24/24 09/24/24 03:20 04:00 06:49 Temperature Pulse Rate 81 83 85 Pulse Rate [ Newspaper Photojournalist ] Respiratory 16 16 18 Rate Blood Pressure 142/76 170/87 196/104 Blood Pressure [Right Arm] O2 Sat by Pulse 98 97 95 Oximetry 09/24/24 09/24/24 09/24/24 08:44 12:11 17:40 Temperature Pulse Rate 88 87 85 Pulse Rate [ Newspaper Photojournalist ] Respiratory 22 16 16 Rate Blood Pressure 173/94 203/110 215/124 Blood Pressure [Right Arm] O2 Sat by Pulse 95 95 95 Oximetry 09/24/24 09/25/24 09/25/24 21:23 00:06 00:43 Temperature 98.6 F 97.6 F Pulse Rate 98 85 84 Pulse Rate [ Newspaper Photojournalist ] Respiratory 18 17 19 Rate Blood Pressure 196/99 168/93 Blood Pressure [Right Arm] O2 Sat by Pulse 100 96 95 Oximetry 09/25/24 09/25/24 09/25/24 03:16 05:46 07:18 Temperature 98.4 F 98.8 F Pulse Rate 90 92 Pulse Rate [ 81 Newspaper Photojournalist ] Respiratory 17 18 16 Rate Blood Pressure 202/102 197/98 Blood Pressure 187/80 [Right Arm] O2 Sat by Pulse 95 95 90 L Oximetry 09/25/24 09/25/24 09/25/24 07:43 10:12 11:20 Temperature Pulse Rate 92 86 84 Pulse Rate [ Newspaper Photojournalist ] Respiratory 22 26 H 24 Rate Blood Pressure 192/111 175/97 199/124 Blood Pressure [Right Arm] O2 Sat by Pulse 95 94 L 95 Oximetry 09/25/24 09/25/24 13:30 14:33 Temperature Pulse Rate 81 84 Pulse Rate [ Newspaper Photojournalist ] Respiratory 22 20 Rate Blood Pressure 164/94 144/92 Blood Pressure [Right Arm] O2 Sat by Pulse 95 96 Oximetry - Reevaluation(s) Reevaluation #1: 09/24/24 01:33 Medical records reviewed Reevaluation #2: 09/24/24 02:47 Patient symptoms seem to wax and wane here in the emergency department Reevaluation #3: 09/24/24 02:47 Patient and family informed of results and questions answered states symptoms began well before he went to bed at 9:00 as he was having difficulty changing the channel on the TV remote Reevaluation #4: Was pt. sent in by a medical professional or institution (DION Skinner, CLINIC CLERK, urgent care, hospital, or retirement...) When possible be specific @ -no Did you speak to anyone other than the patient for history (EMS, parent, family, police, friend...)? What history was obtained from this source @ -no Did you review nursing and triage notes (agree or disagree)? Why? @ -agree Are old charts reviewed (outside hosp., previous admission, EMS record, old EKG, old radiological studies, urgent care reports/EKG's, retirement records)? Report findings @ -yes Differential Diagnosis (chest pain, altered mental status, abdominal pain women, abdominal pain men, vaginal bleeding, weakness, fever, dyspnea, syncope, headache, dizziness, GI bleed, back pain, seizure, CVA, palpatations, mental health, musculoskeletal)? @ -prior EKG interpreted by me (3pts min.). @ -yes X-rays interpreted by me (1pt min.). @ -no CT interpreted by me (1pt min.). @ -yes negative for acute disease U/S interpreted by me (1pt. min.). @ -no What testing was considered but not performed or refused? (CT, X-rays, U/S, labs)? Why? @ -none What meds were considered but not given or refused? Why? @ -none Did you discuss the management of the patient with other professionals (professionals i.e. DION Skinner, CLINIC CLERK, lab, RT, psych nurse, social sciences instructor, detective and intelligence analyst, teacher, public relations officer, counter caser)? Give summary @ -no Was smoking cessation discussed for >3mins.? @ -no Was critical care preformed (if so, how long)? @ -yes31 Were there social determinants of health that impacted care today? How? (Homelessness, low income, unemployed, alcoholism, drug addiction, transport ation, low edu. Level, literacy, decrease access to med. care, shelter, rehab)? @ -none Was there de-escalation of care discussed even if they declined (Discuss DNR or withdrawal of care, Hospice)? DNR status @ -no What co-morbidities impacted this encounter? (DM, HTN, Smoking, COPD, CAD, Cancer, CVA, ARF, Chemo, Hep., AIDS, mental health diagnosis, sleep apnea, morbid obesity)? @ -none Was patient admitted / discharged? Hospital course, mention meds given and route, prescriptions, significant lab abnormalities, going to OR and other pertinent info. @ - 59 male will be admitted for acute CVA new onset atrial fibrillation with RVR no tPA candidate secondary to onset of symptoms Admitted acute CVA with new onset A-fib with RVR Undiagnosed new problem with uncertain prognosis? @ -no Drug Therapy requiring intensive monitoring for toxicity (Heparin, Nitro, Insulin, Cardizem)? @ -no Were any procedures done? @ -no Diagnosis/symptom? @ - Acute, or Chronic, or Acute on Chronic? @ -Acute Uncomplicated (without systemic symptoms) or Complicated (systemic symptoms)? @ -Complicated Side effects of treatment? @ -no Exacerbation, Progression, or Severe Exacerbation? @ -exacerbation Poses a threat to life or bodily function? How? (Chest pain, USA, NH, pneumonia, PE, COPD, DKA, ARF, appy, cholecystitis, CVA, Diverticulitis, Homicidal, Suicidal, threat to staff... and all critical care pts) @ -yes CVA Reevaluation #5: Differential CVA Ischemic stroke, hemorrhagic stroke, brain tumor, atypical migraine, Wernicke's encephalopathy, seizure, multiple sclerosis, meningitis, encephalitis, hypoglycemia, Guillain-Navarro, electrolytes disturbance, myasthenia gravis.... This is not meant to be an all-inclusive list - Consultations Consultation #1: Spoke with neuro interventionalists on-call no indication for tPA Consultation #2: Spoke with sound who agrees to admit this patient Critical Care Time Critical Care Time: Yes Total Critical Care Time: 31 Disposition Clinical Impression: Cerebrovascular accident (CVA), New onset atrial fibrillation Disposition: ADMITTED IP TO THIS HOSP Condition: Stable Is patient prescribed a controlled substance at d/c from ED?: No Time of Disposition: 03:00
[2024-09-24] MEDS: LABETALOL 5 MG/ML VIAL MDV IVP STA (01:30)
[2024-09-24] MEDS: SODIUM CHLORIDE 0.9% 1,000 ML IV STA (01:35)
[2024-09-24 01:45] LABS: Carbon Dioxide 27 mmol/L (22-30); Chloride 94 mmol/L (98-107); Glucose 469 mg/dL (74-99); Potassium 4.6 mmol/L (3.5-5.1); Sodium 133 mmol/L (137-145)
--- NOTE | 2024-09-24 01:45 | CT ---
EXAM: CT Head Without Intravenous Contrast CLINICAL HISTORY: ITS.REASON CT Reason: Neuro deficit, acute, stroke suspected TECHNIQUE: Axial computed tomography images of the head/brain without intravenous contrast. CTDI is 45 mGy and DLP is 900 mGy-cm. This CT exam was performed using one or more of the following dose reduction techniques: automated exposure control, adjustment of the mA and/or kV according to patient size, and/or use of iterative reconstruction technique. COMPARISON: No relevant prior studies available. FINDINGS: Brain: No hemorrhage or mass effect. Old left basal ganglia infarct Ventricles: No hydrocephalus. Bones/joints: Unremarkable. Soft tissues: Unremarkable. Sinuses: No air fluid level. Mastoid air cells: Clear. IMPRESSION: No acute hemorrhage, hydrocephalus, or mass effect.
[2024-09-24 01:46] LABS: ALT 33 U/L (4-49); AST 23 U/L (17-59); African American GFR (CKD) >90 (>60 ml/min/1.73 sqM); Albumin 4.4 g/dL (3.5-5.0); Alcohol <10 mg/dL; Alkaline Phosphatase 56 U/L (38-126); Anion Gap 12 mmol/L; Blood Urea Nitrogen 21 mg/dL (9-20); Calcium 9.3 mg/dL (8.4-10.2); Creatine Kinase 109 U/L (55-170); Non-African American GFR(CKD) >90 (>60 ml/min/1.73 sqM); Total Bilirubin 0.4 mg/dL (0.2-1.3); Total Protein 7.4 g/dL (6.3-8.2)
--- NOTE | 2024-09-24 01:53 | CT ---
EXAM: CT Angiography Head With Intravenous Contrast CLINICAL HISTORY: ITS.REASON CT Reason: Neuro deficit, acute, stroke suspected TECHNIQUE: Axial computed tomographic angiography images of the head with intravenous contrast. CTDI is 22 mGy and DLP is 975 mGy-cm. This CT exam was performed using one or more of the following dose reduction techniques: automated exposure control, adjustment of the mA and/or kV according to patient size, and/or use of iterative reconstruction technique. MIP reconstructed images were created and reviewed. COMPARISON: No relevant prior studies available. FINDINGS: 1. Bilateral severe focal stenosis versus partial occlusion mid WEALTH MANAGEMENT MANAGER. 2. Atretic/decreased caliber of vessels in the left M1/M2 junction and M2 branches. 3. Remaining vessels are intact. IMPRESSION: 1. Bilateral severe focal stenosis versus partial occlusion mid WEALTH MANAGEMENT MANAGER. 2. Atretic/decreased caliber of vessels in the left M1/M2 junction and M2 branches. 3. Remaining vessels are intact. EXAM: CT Angiography Neck With Intravenous Contrast CLINICAL HISTORY: ITS.REASON CT Reason: Neuro deficit, acute, stroke suspected TECHNIQUE: Routine carotid CT angiography protocol was performed with intravenous contrast. NASCET criteria using the distal ICAs for comparison were used for evaluation of stenoses. CTDI is 22 mGy and DLP is 975 mGy-cm. This CT exam was performed using one or more of the following dose reduction techniques: automated exposure control, adjustment of the mA and/or kV according to patient size, and/or use of iterative reconstruction technique. MIP reconstructed images were created and reviewed. COMPARISON: None. FINDINGS: VASCULATURE: Right common carotid artery: No significant stenosis. No dissection. Right internal carotid artery: No significant stenosis. No dissection. Right vertebral artery: No significant stenosis. No dissection. Left common carotid artery: No significant stenosis. No dissection. Left internal carotid artery: No significant stenosis. No dissection. Left vertebral artery: No significant stenosis. No dissection. NECK: Lung apices: Clear. CAROTID STENOSIS REFERENCE USING NASCET CRITERIA: % ICA stenosis = (1 - narrowest ICA diameter/diameter of distal cervical ICA) x 100. Mild - <50% stenosis. Moderate - 50-69% stenosis. Severe - 70-94% stenosis. Near occlusion - 95-99% stenosis. Occluded - 100% stenosis. IMPRESSION: No significant stenosis.
[2024-09-24 02:16] LABS: Basophils # (A) 0.1 k/uL (0-0.2); Basophils % (A) 1 %; Eosinophils # (A) 0.1 k/uL (0-0.7); Eosinophils % (A) 1 %; HCT 49.5 % (39.0-53.0); Lymphocytes # (A) 1.8 k/uL (1.0-4.8); Lymphocytes % (A) 32 %; MCH 27.1 pg (25.0-35.0); MCHC 32.3 g/dL (31.0-37.0); MCV 83.8 fL (80.0-100.0); Mean Platelet Volume 9.7; Monocytes # (A) 0.4 k/uL (0-1.0); Monocytes % (A) 8 %; Neutrophils # (A) 3.2 k/uL (1.3-7.7); Neutrophils % (A) 56 %; Platelet Count 220 k/uL (150-450); RDW 13.6 % (11.5-15.5); WBC 5.7 k/uL (3.8-10.6)
--- NOTE | 2024-09-24 02:16 | XR ---
EXAM: XR Chest, 1 View CLINICAL HISTORY: Altered mental status TECHNIQUE: Frontal view of the chest. COMPARISON: CTA chest 07/19/2022 FINDINGS: Lungs: Slightly diminished lung volumes. No focal airspace consolidation. No radiographic evidence for florid CHF. Pleural space: Unremarkable. No pneumothorax. No large pleural effusion. Heart: The cardiac silhouette is mildly prominent, but thought to be accentuated by portable AP technique. Mediastinum: No significant abnormality identified. The trachea is midline. Bones/joints: Unremarkable. No acute fracture. IMPRESSION: No focal consolidation or acute cardiopulmonary process identified.
[2024-09-24 02:22] LABS: INR 0.9 (<1.2); Partial Thromboplastin Time 22.8 sec (22.0-30.0); Prothrombin Time 10.4 sec (10.0-12.5)
[2024-09-24 02:40] LABS: Appearance,Urine Clear (Clear); Bilirubin,Urine Negative (Negative); Blood,Urine Negative (Negative); Color,Urine Colorless; Glucose,Urine (UA) 4+ (Negative); Ketones,Urine 1+ (Negative); Leukocyte Esterase,Urine Negative (Negative); Nitrite,Urine Negative (Negative); Protein,Urine Trace (Negative); Specific Gravity,Urine 1.032 (1.001-1.035); Urobilinogen,Urine <2.0 mg/dL (<2.0)
[2024-09-24] MEDS: ASPIRIN 325 MG TAB PO STA (03:07)
[2024-09-24] MEDS: SODIUM CHLORIDE 0.9% 1,000 ML IV SCH (03:08)
[2024-09-24 03:15] LABS: Amphetamine Screen,Urine Not Detected (NotDetected); Barbiturate Screen,Urine Not Detected (NotDetected); Benzodiazepines Screen,Urine Not Detected (NotDetected); Cocaine Screen,Urine Not Detected (NotDetected); Methadone Screen, Urine Not Detected (NotDetected); Opiate Screen,Urine Not Detected (NotDetected); Oxycodone Screen, Urine Not Detected (NotDetected); Phencyclidine Screen,Urine Not Detected (NotDetected); Tricyclic Antidepressant,Urine Not Detected (NotDetected); Urn Cannabinoid Scrn Not Detected (NotDetected)
--- NOTE | 2024-09-24 06:23 | P.HPIM ---
History of Present Illness H&P Date: 09/24/24 Patient is a 59-year-old male with CVA/TIA, diabetes, sleep apnea (uses BiPAP), thyroid disorder, anxiety here for right-sided weakness and aphasia brought in via EMS. He was last known well at and around 8-9 PM 09/23. 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 He also reported to have slurred speech, right-sided facial droop, confusion. His checked his blood pressure and it was elevated at the 200 systolic BP. He denied fever, chills, headaches, visual changes, hearing changes, shortness of breath, cough, chest pain, palpitations, tremors, leg pa in, worsening extremity swelling, abdominal pain, nausea, vomiting, diarrhea, changes in urination, bruising, bleeding. He denied having seizure history. Social history: Tobacco: Former smoker. Quit 30 years ago Alcohol: Occasional alcohol use Recreational drugs: Denies illicit drug use Travel: No recent travel Brain CT on admission showed no acute hemorrhage, hydrocephalus or mass effect, old basal ganglia infarct seen. CT angiography of the head showed bilateral severe focal stenosis versus partial occlusion of the mid SOFTWARE SECURITY ARCHITECT, atretic/decreased caliber of vessels in the left M1/M2 junction and M2 branches, remaining vessels are intact. CT angiography of the neck with contrast showed no significant stenosis or dissection of the left and right ICA, common carotid arteries, and vertebral arteries. Chest x-ray showed no focal consolidation or acute cardiopulmonary process. EKG showed atrial. Fibrillation with a rate of 101, no ST-T changes Labs on admission showed WBC 5.7, hemoglobin 16, platelet count 220, PT 10.4, INR 0.9, PTT 22.8, sodium 133, potassium 4.6, chloride 94, BUN 21, creatinine 0.82, glucose 469, AST 23, ALT 33, alk phos 56, creatinine kinase 109, troponin 0.0 15, albumin 4.4. Urinalysis showed trace protein, +4 glucose, +1 ketones. UDS negative. Serum alcohol less than 10. Vitals on admission temperature 97.5, pulse rate 101, blood pressure 188/114, O2 saturation 94 on nasal cannula 2 L. ED documentation reviewed and case discussed with ED provider. Aspirin 325 mg p.o. daily, Lipitor 80 mg p.o. daily, labetalol 20 mg IVP, and 1 L normal saline 0.9% initiated in the ED. 100 cc/h of 0.9 normal saline also initiated. Review of systems: Pertinent positives and negatives as discussed in HPI, a complete review of systems was performed and all other systems are negative. Physical examination: Vital signs reviewed General: non toxic, no distress, appears at stated age, morbidly obese Derm: no unusual rashes/lesions, warm Head: atraumatic, normocephalic, symmetric Eyes: EOMI, anicteric sclera, pupils equal round reactive to light ENT: Nose and ears atraumatic Neck: No cervical lymphadenopathy, trachea midline, supple Mouth: no lip lesion, mucus membranes moist Cardiovascular: S1S2 reg, no murmur Lungs: CTA bilateral, no rhonchi, no rales, no accessory muscle use Abdominal: soft, nondistended, nontender to palpation, no guarding Ext: muscle strength 3 out of 5 in upper right and lower right distal and proximal 4 extremities grossly, 5 out of 5 strength in the rest of his upper and lower distal and proximal extremities grossly, no gross muscle atrophy, no contractures, positive dorsalis pedis pulse bilateral, +1 bilateral pitting edema up to the ankles Neuro: CN II-XI grossly intact, no gross focal neuro deficits Psych: Alert and oriented x 3, appropriate affect and mood Assessment/Plan: 59-year-old male with history of TIA here for strokelike symptoms. Imaging consistent with ischemic stroke #. Acute ischemic stroke -CT angiography of the head showed bilateral severe focal stenosis versus partial occlusion of the mid SOFTWARE SECURITY ARCHITECT, atretic/decreased caliber of vessels in the left M1/M2 junction and M2 branches, remaining vessels are intact. -Not a candidate for thrombolytic therapy -Cardiac monitoring -Continue with neurochecks -Fall precautions -Supplemental oxygenation as needed -Consult neurology -PT OT consult -Permissive hypertension keep at less than 220/120. Monitor blood pressure -Continue aspirin 81 p.o. daily -Continue Lipitor 80 mg p.o. daily #. New onset atrial fibrillation with RVR -EKG showed atrial fibrillation with a rate of 101, no ST-T changes -Echocardiogram -Carotid doppler ultrasound -Metoprolol tartarate 25 mg twice daily -[id number] score 4. -Consult cardiology #. Diabetes with Hyperglycemia -Serum glucose 469. +4 glucose and urinalysis and +1 ketones -NovoLog ISS ACHS -Glucose Accu-Cheks ACHS. Monitor for hypoglycemia -A1c in the a.m. Chronic Conditions: #. Sleep apnea (uses BiPAP) #. Thyroid disorder #. Anxiety -Resume home meds once reconciled -Continue CPAP F: 0.9 NS 100cc/hr E: none N: Heart healthy diet A: fall precautions DVT ppx: Eliquis 5mg BID GI pptx: not indicated Dispo: The patient is admitted with an anticipated greater than than 2 midnight stay for evaluation of acute ischemic stroke CODE STATUS: Full Discussed with: Patient Anticipated discharge place: Home Jesica Uriarte MD PGY-1 IM Dictation was produced using [employer] dictation software. please excuse any grammatical, word or spelling errors. I have seen and evaluated the patient today. I Discussed the case with the resident and agree with the resident's findings I edited the assessment and plan as necessary as documented in the resident's note. Past Medical History Past Medical History: CVA/TIA, Diabetes Mellitus, Myocardial Infarction ([place]), Sleep Apnea/CPAP/BIPAP, Thyroid Disorder Additional Past Medical History / Comment(s): states possible tia and silent [place],uses bipap, Last Myocardial Infarction Date:: ?silent History of Any Multi-Drug Resistant Organisms: None Reported Past Surgical History: Back Surgery, Orthopedic Surgery Additional Past Surgical History / Comment(s): aundrea carpal tunnel, neck fusion, lower back surgery, laminectomy and discectomy Past Anesthesia/Blood Transfusion Reactions: No Reported Reaction Past Psychological History: Anxiety Smoking Status: Former smoker Past Alcohol Use History: Rare Additional Past Alcohol Use History / Comment(s): quit 15 yrs ago Past Drug Use History: None Reported Additional Drug Use History / Comment(s): CBD oil occasional not to use 24 hours prior - Past Family History Mother Family Medical History: No Reported History Medications and Allergies Home Medications Medication Instructions Recorded Confirmed Type Levothyroxine Sodium [Synthroid] 137 mcg PO DAILY 01/04/16 12/22/22 History ALPRAZolam [Xanax] 1 mg PO DAILY PRN 09/26/19 12/22/22 History Ascorbic Acid [Vitamin C] 6,000 mg PO DAILY 07/19/22 12/22/22 History Calm Magnesium Drink 1 bottle PO HS 07/19/22 12/22/22 History HYDROcodone/APAP 7.5-325MG [[place] 1 tab PO DAILY PRN 07/19/22 12/22/22 History 7.5-325] Turmeric(Unknown) 4 tab PO BID 07/19/22 12/22/22 History Vitamin B Complex 1 cap PO DAILY 07/19/22 12/22/22 History Vitamin D3 W/Vitamin K 1 tab PO DAILY 07/19/22 12/22/22 History Zinc Gluconate [Zinc] 50 mg PO DAILY 07/19/22 12/22/22 History sitaGLIPtin [Januvia] 100 mg PO DAILY 07/19/22 12/22/22 History Allergies Allergy/AdvReac Type Severity Reaction Status Date / Time aspirin AdvReac Abdominal Verified 12/22/22 09:30 Pain Physical Exam Vitals: Vital Signs Temp Pulse Resp BP Pulse Ox 09/24/24 02:30 86 18 174/98 98 09/24/24 02:18 88 18 153/90 93 L 09/24/24 01:17 97.5 F L 101 H 18 188/114 94 L Intake and Output 09/23/24 09/23/24 09/24/24 14:59 22:59 06:59 Other: Weight 145.15 kg Results CBC & Chem 7: 09/24/24 01:23 09/24/24 01:23 Labs: Abnormal Lab Results - Last 24 Hours (Table) 09/24/24 09/24/24 Range/Units 01:23 01:31 Sodium 133 L (137-145) mmol/L Chloride 94 L (98-107) mmol/L BUN 21 H (9-20) mg/dL Glucose 469 H (74-99) mg/dL Urine Protein Trace H (Negative) Urine Glucose (UA) 4+ H (Negative) Urine Ketones 1+ H (Negative)
--- NOTE | 2024-09-24 08:04 | US ---
EXAMINATION TYPE: US carotid duplex BILAT DATE OF EXAM: 09/24/2024 COMPARISON: NONE CLINICAL INDICATION: Male, 59 years old with history of Stenosis; Stenosis Additional History: .... TECHNIQUE: Grayscale, color Doppler and spectral Doppler evaluation of the bilateral carotid systems and vertebral arteries. Indirect Doppler criteria was utilized. FINDINGS: EXAM MEASUREMENTS: RIGHT: Peak Systolic Velocity (PSV) cm/sec ----- Right CCA: 71.6 ----- Right ICA: 71.1 ----- Right ECA: 95.6 ICA/CCA ratio: 1.0 RIGHT: End Diastole cm/sec ----- Right CCA: 3.9 ----- Right ICA: 2.7 ----- Right ECA: 7.5 LEFT: Peak Systolic Velocity (PSV) cm/sec ----- Left CCA: 79.1 ----- Left ICA: 66.5 ----- Left ECA: 108.8 ICA/CCA ratio: 0.8 LEFT: End Diastole cm/sec ----- Left CCA: 4.4 ----- Left ICA: 3.7 ----- Left ECA: 8.9 VERTEBRALS (direction of flow): Right Vertebral: Antegrade Left Vertebral: Antegrade Rhythm: Normal PUBLIC HEALTH DENTIST NOTES: No significant stenosis seen Color Doppler imaging shows patency with blood flow throughout the carotid artery. Spectral waveforms are within normal limits. IMPRESSION: No evidence of hemodynamically significant stenosis. Criteria for Assigning % of Stenosis / Diameter reduction (Estimation based on the indirect measurements of the internal carotid artery velocities (ICA PSV). 1. Normal (no stenosis)=ICA PSV < 125 cm/s: ratio < 2.0: ICA EDV<40 cm/s. 2. Less than 50% stenosis=ICA PSV < 125 cm/s: ratio < 2.0: ICA EDV<40 cm/s. 3. 50 to 69% stenosis=ICA PSV of 125 to 230 cm/s: ration 2.0 ? 4.0: ICA EDV 40-100 cm/s. 4. Greater than 70% stenosis to near occlusion= ICA PSV > 230 cm/s: ratio > 4.0: ICA EDV > 100 cm/s. 5. Near occlusion= ICA PSV velocities may be low or undetectable: variable ratio and ICA EDV. 6. Total occlusion=unable to detect flow. [facility], , 09/24/2024 8:02 AM
[2024-09-24] MEDS: MULTIVITAMINS, THERA 1 EACH TAB PO SCH (09:47)
[2024-09-24] MEDS: CHOLECALCIFEROL 25 MCG (1000 IU) TABLET PO SCH (09:47)
[2024-09-24] MEDS: LEVOTHYROXINE 137 MCG TAB PO SCH (09:48)
--- NOTE | 2024-09-24 13:33 | P.PN ---
Subjective Progress Note Date: 09/24/24 Hospital course: Patient is a very pleasant 59-year-old male with a past medical history of CVA/TIA, hypertension, type II [id number] diabetes mellitus, and hypothyroidism. He presented to the emergency department on 09/24/2024 with reports of right-sided weakness and aphasia. CT brain was negative for acute hemorrhage, hydrocephalus or mass effect. CTA head and neck revealing bilateral severe focal stenosis versus partial occlusion of mid PUTTY GLAZER, decreased caliber of vessels in the left M1/M2 junction and M2 branches, bilateral severe focal stenosis versus partial occlusion of mid [place]ER and no significant carotid stenosis. EKG showing atrial fibrillation with RVR to 101 bpm. Chest x-ray was negative for acute cardiopulmonary process. Labs completed and reviewed. CBC unremarkable. Coagulation profile normal findings. BMP showing sodium 133, chloride of 94, and anion gap of 12 with mild prerenal azotemia with BUN of 21. Blood glucose elevated at 469. Troponin was 0.015. Urinalysis positive for protein, glucose, and ketones. Urine drug screen negative. Serum alcohol less than 10. Patient admitted under our services for acute ischemic CVA and new ons et atrial fibrillation with consultation to neurology and cardiology. Repeat morning EKG showing normal sinus mechanism at 83 bpm. Physical exam: Vital signs reviewed and stable. General: Nontoxic, no distress and appears stated age. Derm: Skin warm and dry, normal coloration for ethnicity. Head: Atraumatic, normocephalic and symmetric. Eyes: EOM's intact, no lid lag, and anicteric sclera Mouth: no lip lesions, mucus membranes moist Cardiovascular: regular rate and rhythm with normal S1S2, no murmur, positive posterior tibial pulses bilaterally, and cap refill < 2 seconds. Lungs: Respirations even, regular, and unlabored on room air. Lungs CTA bilaterally, no rhonchi, no rales, no wheezing, and no accessory muscle usage. Abdominal: soft, nontender to palpation, no guarding, no appreciable organomegaly Ext: ROM intact. No gross muscle atrophy, no edema, no contractures Neuro: Speech clear, face symmetrical and CN II-XII grossly intact with no noted focal neuro deficits Psych: Alert and oriented to person, place, time, and situation. Appropriate and pleasant affect. Assessment and Plan of Care: Acute ischemic stroke -Continue NIH assessment with neurochecks every 4 hours. -Cardiac monitoring -Fall precautions -Neurology consulted, placed order for MRI brain without contrast -Echocardiogram to be completed -PT OT consulted along with consult to inpatient rehab -Permissive hypertension keep at less than 220/120. Monitor blood pressure. Discussed with RN will plan on starting patient on antihypertensive tomorrow morning. -Continue aspirin 81 p.o. daily -Continue Lipitor 80 mg p.o. daily New onset atrial fibrillation with RVR -EKG showed atrial fibrillation with a rate of 101, no ST-T changes. Repeat EKG showing normal sinus mechanism at 83 bpm. -Echocardiogram -Carotid doppler ultrasound -Metoprolol tartarate 25 mg twice daily -[id number] score 4. Will defer anticoagulation once cleared by neurology. At this time continue Lovenox 40 mg daily for DVT prophylaxis. -Cardiology consulted, reviewed documentation in chart. Diabetes with Hyperglycemia -Serum glucose 469. +4 glucose and urinalysis and +1 ketones -NovoLog ISS ACHS -Patient placed on glycemic protocol -Hemoglobin A1c Thyroid disorder. -Continue levothyroxine 137 mcg daily. Obstructive sleep apnea -Continue CPAP nightly and while napping. CODE STATUS: Full code DVT prophylaxis: Lovenox Anticipated discharge date: Pending medical course Anticipated discharge place: Pending clinical course Patient was seen independently by Nurse Pracitioner. This document was prepared using [employer] dictation software. Please allow for errors in school leader, while rare they do occur. Zack Harley NP rendered care for this patient independently, reviewed the findings and plan as documented in the note above and agree with plan. I did not physically speak with or examine the patient on this date. Objective - Vital Signs Vital signs: Vital Signs Temp 97.5 F L 09/24/24 01:17 Pulse 87 09/24/24 12:11 Resp 16 09/24/24 12:11 BP 203/110 09/24/24 12:11 Pulse Ox 95 09/24/24 12:11 FiO2 Intake & Output 09/23/24 09/24/24 09/24/24 18:59 06:59 18:59 Weight 145.15 kg - Labs CBC & Chem 7: 09/24/24 01:23 09/24/24 01:23 Labs: Abnormal Lab Results - Last 24 Hours (Table) 09/24/24 09/24/24 Range/Units 01:23 01:31 Sodium 133 L (137-145) mmol/L Chloride 94 L (98-107) mmol/L BUN 21 H (9-20) mg/dL Glucose 469 H (74-99) mg/dL Urine Protein Trace H (Negative) Urine Glucose (UA) 4+ H (Negative) Urine Ketones 1+ H (Negative)
[2024-09-24] MEDS: METOPROLOL TARTRATE 25 MG TAB PO SCH (14:51)
--- NOTE | 2024-09-24 15:32 | P.CRDCN ---
History of Present Illness History of present illness: HISTORY OF PRESENT ILLNESS: This is a 59-year-old male with a past medical history significant for obstructive sleep apnea, obesity, hypertension, diabetes, and CVA/TIA. 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 We have been asked to see the patient in consultation for atrial fibrillation. Patient examined at the bedside in the emergency room. Patient presented to the hospital for chief complaint of right- sided weakness and expressive aphasia. The patient denies any chest pain or pressure. He denies any shortness of breath. He does report having palpitations. The patient was found to be in atrial fibrillation. He denies any known history of atrial fibrillation. Bedside telemetry reveals sinus mechanism with a heart rate in the 80s. Patient continues to report right-sided weakness at the time of examination. He states his speech has improved but is not back to his baseline yet. DIAGNOSTICS: - EKG reveals atrial fibrillation. Repeat EKG reveals sinus mechanism. - Chest xray negative for acute process - Laboratory data: WBC 5.7. Hemoglobin 16.0. Platelet count 220. Sodium 133. Potassium 4.6. BUN 21. Creatinine 0.82. Troponin negative x 1. TSH 3.070. - Current home cardiac medications include none REVIEW OF SYSTEMS: At the time of my exam: CONSTITUTIONAL: Denies fever or chills. HEENT: Denies blurred vision, vision changes, or eye pain. Denies hemoptysis CARDIOVASCULAR: Denies chest pain. Denies orthopnea. Denies PND. Denies palpitations RESPIRATORY: Denies shortness of breath. GASTROINTESTINAL: Denies abdominal pain. Denies nausea or vomiting. HEMATOLOGIC: Denies bleeding disorders. GENITOURINARY: Denies any blood in urine. SKIN: Denies pruitis. Denies rash. PHYSICAL EXAM: VITAL SIGNS: Reviewed. GENERAL: Well-developed in no acute distress. HEENT: Head is normocephalic. Drooping of right nasolabial fold. Pupils are equal, round. Sclerae anicteric. Mucous membranes of the mouth are moist. Neck supple. No JVD or thyromegaly LUNGS: Respirations even and unlabored. Lungs essentially clear to auscultation bilaterally. HEART: Regular rate and rhythm. S1 and S2 heard. ABDOMEN: Soft. Nondistended. Nontender. EXTREMITIES: Mild right-sided weakness.. No clubbing or cyanosis. Peripheral pulses intact. No lower extremity edema NEUROLOGIC: Awake and alert. Oriented x 3. ASSESSMENT: Right-sided weakness with expressive aphasia, rule out CVA New onset atrial fibrillation, currently maintaining sinus mechanism Obstructive sleep apnea with CPAP use Hypertension Diabetes Morbid obesity: BMI 45.9 History of CVA/TIA, 15 years ago, "light one" per patient PLAN: Obtain 2D echo to assess cardiac structure and function EKG repeated at the time of examination revealing sinus mechanism TSH checked and within normal limits Begin metoprolol tartrate 25 mg twice a day Continue to monitor telemetry and blood pressure Recommend anticoagulation due to new onset atrial fibrillation. Will wait for neurology clearance before beginning. Further recommendations pending patient course Nurse practitioner note has been reviewed by physician. Signing provider agrees with the documented findings, assessment, and plan of care documented by FIELD SUPPORT SPECIALIST as a scribe. Past Medical History Past Medical History: CVA/TIA, Diabetes Mellitus, Myocardial Infarction ([place]), Sleep Apnea/CPAP/BIPAP, Thyroid Disorder Additional Past Medical History / Comment(s): states possible tia and silent [place],uses bipap, Last Myocardial Infarction Date:: ?silent History of Any Multi-Drug Resistant Organisms: None Reported Past Surgical History: Back Surgery, Orthopedic Surgery Additional Past Surgical History / Comment(s): aundrea carpal tunnel, neck fusion, lower back surgery, laminectomy and discectomy Past Anesthesia/Blood Transfusion Reactions: No Reported Reaction Past Psychological History: Anxiety Smoking Status: Former smoker Past Alcohol Use History: Rare Additional Past Alcohol Use History / Comment(s): quit 15 yrs ago Past Drug Use History: None Reported Additional Drug Use History / Comment(s): CBD oil occasional not to use 24 hours prior - Past Family History Mother Family Medical History: No Reported History Medications and Allergies Home Medications Medication Instructions Recorded Confirmed Type Levothyroxine Sodium [Synthroid] 137 mcg PO DAILY 01/04/16 09/24/24 History Berberine Chloride [Berberine] 500 mg PO DAILY 09/24/24 09/24/24 History Cholecalciferol (Vitamin D3) 75 mcg PO DAILY 09/24/24 09/24/24 History [Vitamin D3 (3000 Iu)] Multivitamins, Thera [Multivitamin 1 tab PO DAILY 09/24/24 09/24/24 History (formulary)] Nitric Oxide (Unknown Dose) 1 dose PO DAILY 09/24/24 09/24/24 History Turmeric Root Extract [Turmeric 500 mg PO DAILY 09/24/24 09/24/24 History Curcumin] Allergies Allergy/AdvReac Type Severity Reaction Status Date / Time aspirin AdvReac Abdominal Verified 09/24/24 08:26 Pain Physical Exam Vitals: Vital Signs Temp Pulse Resp BP Pulse Ox 09/24/24 12:11 87 16 203/110 95 09/24/24 08:44 88 22 173/94 95 09/24/24 06:49 85 18 196/104 95 09/24/24 04:00 83 16 170/87 97 09/24/24 03:20 81 16 142/76 98 09/24/24 02:30 86 18 174/98 98 09/24/24 02:18 88 18 153/90 93 L 09/24/24 01:17 97.5 F L 101 H 18 188/114 94 L Intake and Output 09/24/24 09/24/24 09/24/24 06:59 14:59 22:59 Other: Weight 145.15 kg Results 09/24/24 01:23 09/24/24 01:23 Cardiac Enzymes 09/24/24 09/24/24 Range/Units 01:23 01:23 AST 23 (17-59) U/L Troponin I 0.015 (0.000-0.034) ng/mL Coagulation 09/24/24 Range/Units 01:23 PT 10.4 (10.0-12.5) sec APTT 22.8 (22.0-30.0) sec CBC 09/24/24 Range/Units 01:23 WBC 5.7 (3.8-10.6) k/uL RBC 5.90 (4.30-5.90) m/uL Hgb 16.0 (13.0-17.5) gm/dL Hct 49.5 (39.0-53.0) % Plt Count 220 (150-450) k/uL Comprehensive Metabolic Panel 09/24/24 Range/Units 01:23 Sodium 133 L (137-145) mmol/L Potassium 4.6 (3.5-5.1) mmol/L Chloride 94 L (98-107) mmol/L Carbon Dioxide 27 (22-30) mmol/L BUN 21 H (9-20) mg/dL Creatinine 0.82 (0.66-1.25) mg/dL Glucose 469 H (74-99) mg/dL Calcium 9.3 (8.4-10.2) mg/dL AST 23 (17-59) U/L ALT 33 (4-49) U/L Alkaline Phosphatase 56 (38-126) U/L Total Protein 7.4 (6.3-8.2) g/dL Albumin 4.4 (3.5-5.0) g/dL Current Medications Generic Name Dose Route Start Last Admin Trade Name Freq PRN Reason Stop Dose Admin Aspirin 325 mg 09/25/24 09:00 Aspirin 325 Mg Tab PO DAILY AIDAN Atorvastatin Calcium 80 mg 09/24/24 21:00 Atorvastatin 80 Mg Tab PO HS AIDAN Cholecalciferol 75 mcg 09/24/24 09:00 09/24/24 09:47 Cholecalciferol 25 Mcg (1000 Iu) Tablet PO 75 mcg DAILY AIDAN Administration Sodium Chloride 1,000 mls @ 100 mls/hr 09/24/24 02:45 09/24/24 14:50 Saline 0.9% IV 100 mls/hr .Q10H AIDAN Administration Levothyroxine Sodium 137 mcg 09/24/24 09:00 09/24/24 09:48 Levothyroxine 137 Mcg Tab PO 137 mcg 0630 AIDAN Administration Metoprolol Tartrate 25 mg 09/24/24 13:30 09/24/24 14:51 Metoprolol Tartrate 25 Mg Tab PO 25 mg BID AIDAN Administration Multivitamins 1 each 09/24/24 09:00 09/24/24 09:47 Multivitamins, Thera 1 Each Tab PO 1 each DAILY AIDAN Administration Intake and Output 09/24/24 09/24/24 09/24/24 06:59 14:59 22:59 Other: Weight 145.15 kg 09/24/24 01:23 09/24/24 01:23
[2024-09-24] MEDS ORDERED: DEXTROSE 50% SYRINGE 50 ML IVP PRN ×2 (18:13)
[2024-09-24 21:23] LABS: Glucose,Whole Blood 229 mg/dL (70-110)
[2024-09-24] MEDS: INSULIN ASPART (NovoLOG) 100 UNIT/ML VIAL SQ SCH (21:35)
[2024-09-24] MEDS: ATORVASTATIN 80 MG TAB PO SCH (21:38)
--- NOTE | 2024-09-25 07:24 | CA ---
Transthoracic Echo Report Name: Telly Zaman Age: 59 Gender: M : 1965 Exam Date: 09/24/2024 09:51 Exam Location: [facility] Ht (in): 70 Wt (lb): 320 Ordering Physician: Stas Lyle DO Attending/Referring Phys: [id number], Dariela Production Tester Bethanie Austin, RDETHAN Procedure CPT: Indications: Thrombus Cardiac Hx: Technical Quality: Fair Contrast 1: Definity Total Dose (mL): 2 Contrast 2: Agitated Saline Total Dose (mL): MEASUREMENTS (Male / Female) Normal Values 2D ECHO LV Diastolic Diameter PLAX 5.7 cm 4.2 - 5.9 / 3.9 - 5.3 cm LV Systolic Diameter PLAX 5.1 cm IVS Diastolic Thickness 1.1 cm 0.6 - 1.0 / 0.6 - 0.9 cm LVPW Diastolic Thickness 0.9 cm 0.6 - 1.0 / 0.6 - 0.9 cm LV Relative Wall Thickness 0.3 LA Volume 57.1 cm??? 18 - 58 / 22 - 52 cm??? LA Volume Index 20.8 cm???/m??? 16 - 28 cm???/m??? M-MODE Aortic Root Diameter MM 3.4 cm LA Systolic Diameter MM 3.9 cm LA Ao Ratio MM 1.2 AV Cusp Separation MM 2.1 cm DOPPLER AV Peak Velocity 163.6 cm/s AV Peak Gradient 10.7 mmHg AV Mean Velocity 117.2 cm/s AV Mean Gradient 6.2 mmHg AV Velocity Time Integral 31.1 cm Mitral E Point Velocity 99.0 cm/s Mitral A Point Velocity 28.4 cm/s Mitral E to A Ratio 3.5 MV Deceleration Time 101.3 ms FINDINGS Left Ventricle Left ventricular ejection fraction is estimated at 30-35 %. Left ventricular cavity size normal. Mild left ventricular dilatation. Moderately reduced global left ventricular systolic function. Right Ventricle Normal right ventricular size. Reduced right ventricular global systolic function. Right ventricular systolic pressure within normal limits. Right Atrium Normal right atrial size. Negative agitated saline bubble study for right to left shunt. Left Atrium Mild left atrial dilatation. Interatrial septal aneurysm. Mitral Valve Structurally normal mitral valve. Mild to moderate mitral regurgitation. No mitral stenosis. Aortic Valve Trileaflet aortic valve. Trace aortic regurgitation. No aortic stenosis. Tricuspid Valve Structurally normal tricuspid valve. Trace tricuspid regurgitation. No tricuspid stenosis. Pulmonic Valve Structurally normal pulmonic valve. Trace pulmonic regurgitation. No pulmonic stenosis. Pericardium No pericardial or pleural effusion. Aorta Normal size aortic root and proximal ascending aorta. CONCLUSIONS Impaired LV function with EF between 30 to 35% Mild to moderate mitral regurgitation Previewed by: Dr. Tejas Dumont MD (Electronically Signed) Final Date: 25 September 2024 07:23
[2024-09-25 07:29] LABS: Glucose,Whole Blood 252 mg/dL (70-110)
[2024-09-25] MEDS: ASPIRIN 325 MG TAB PO SCH (07:36)
[2024-09-25] MEDS ORDERED: amLODIPine 5 MG TAB PO SCH (09:00)
[2024-09-25 09:02] LABS: Chol/HDL Ratio 9.48 Ratio; HDL Cholesterol 30.8 mg/dL (40.00-60.00)
--- NOTE | 2024-09-25 09:57 | P.CNNES ---
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 Patient states that his symptoms started at 6 PM yesterday when he started having trouble speaking. He also had right facial droop. Also complains of right-sided weakness involving the face arm and leg. He is not sure if the speech started first or the extremity weakness started first. He denies any previous history of strokes or TIA. As per EMS flowsheet when they arrived, patient was found sitting upright in a chair, breathing nonlabored, alert and O x 4. Patient has right-sided facial droop, left-sided extremity weakness, slurred speech and aphasia. He mentioned that he was feeling sick around 7 PM so he went to the bed and woke up at 9 PM with a strokelike symptoms but thought he could just "wait it out". Patient's stated that he has been in denial of what was going on and she finally talked him into calling 911. Patient's mentioned that he has been feeling sick all day but at 9 PM the symptoms started. Patient has history of hyperten katie, TIA and diabetes, blood glucose was 561. Patient was obviously weaker on the right leg and was unable to ambulate without assistance. Patient's vitals at the scene was blood pressure 241/156, which came down to 227/124 and then 227/99, pulse rate 104 respiration 16 and saturation 95%. Vitals on arrival blood pressure 188/114 patient has been afebrile. Blood test shows normal CBC, PT PTT, sodium 133 potassium 4.6, normal liver panel, UA and urine drug screen negative. Blood alcohol level negative. CT head showed no acute process. There is evidence of old lacunar infarct in the left basal ganglia. Chest x-ray showed no focal consolidations or acute cardiopulmonary process. EKG showed atrial fibrillation with rapid ventricular rate. Repeat EKG showed sinus rhythm with. AV block. CTA of head. Revealed bilateral severe focal stenosis versus partial occlusion mid [employer]ENT. Atret ic/decreased caliber of vessels in the left M1/M2 junction and M2 branches. Remaining vessels are intact. CTA of the neck showed no significant stenosis.. Carotid Doppler revealed no evidence of hemodynamic significant stenosis, antegrade flow in both vertebral arteries. Patient has history of hypertension and diabetes for last 3 years, does not take any prescription medication, as he treats these conditions "my own way". He was a light smoker from age 8 until he is quit smoking at age 34. Denies any use of alcohol. Home medication include multivitamins, vitamin D and levothyroxine. Overall he states that he is feeling better than yesterday. Patient lives with his , does not use any assistive device at baseline. Review of Systems All pertinent positive and negative review of systems mentioned in HPI. Past Medical History Past Medical History: CVA/TIA, Diabetes Mellitus, Myocardial Infarction ([place]), Sleep Apnea/CPAP/BIPAP, Thyroid Disorder Additional Past Medical History / Comment(s): states possible tia and silent [place],uses bipap, Last Myocardial Infarction Date:: ?silent History of Any Multi-Drug Resistant Organisms: None Reported Past Surgical History: Back Surgery, Orthopedic Surgery Additional Past Surgical History / Comment(s): aundrea carpal tunnel, neck fusion, lower back surgery, laminectomy and discectomy Past Anesthesia/Blood Transfusion Reactions: No Reported Reaction Past Psychological History: Anxiety Smoking Status: Former smoker Past Alcohol Use History: Rare Additional Past Alcohol Use History / Comment(s): quit 15 yrs ago Past Drug Use History: None Reported Additional Drug Use History / Comment(s): CBD oil occasional not to use 24 hours prior - Past Family History Mother Family Medical History: No Reported History Medications and Allergies Home Medications Medication Instructions Recorded Confirmed Type Levothyroxine Sodium [Synthroid] 137 mcg PO DAILY 01/04/16 09/24/24 History Berberine Chloride [Berberine] 500 mg PO DAILY 09/24/24 09/24/24 History Cholecalciferol (Vitamin D3) 75 mcg PO DAILY 09/24/24 09/24/24 History [Vitamin D3 (3000 Iu)] Multivitamins, Thera [Multivitamin 1 tab PO DAILY 09/24/24 09/24/24 History (formulary)] Nitric Oxide (Unknown Dose) 1 dose PO DAILY 09/24/24 09/24/24 History Turmeric Root Extract [Turmeric 500 mg PO DAILY 09/24/24 09/24/24 History Curcumin] Allergies Allergy/AdvReac Type Severity Reaction Status Date / Time aspirin AdvReac Abdominal Verified 09/24/24 08:26 Pain Physical Examination - Vital Signs Vital Signs: Vital Signs Temp Pulse Resp BP Pulse Ox 09/24/24 12:11 87 16 203/110 95 09/24/24 08:44 88 22 173/94 95 09/24/24 06:49 85 18 196/104 95 09/24/24 04:00 83 16 170/87 97 09/24/24 03:20 81 16 142/76 98 09/24/24 02:30 86 18 174/98 98 09/24/24 02:18 88 18 153/90 93 L 09/24/24 01:17 97.5 F L 101 H 18 188/114 94 L Intake and Output 09/24/24 09/24/24 09/24/24 06:59 14:59 22:59 Other: Weight 145.15 kg Patient is a late middle-aged male, very pleasant, in no acute distress. Patient is alert awake oriented to time place and person. Patient has mild to moderate expressive aphasia. Patient has slight difficulty naming objects, as he could not name ear, but not the earlobe, could not name "knuckles" but was able to name button with difficulty. He cannot repeat. There is no dysarthria otherwise. Attention, concentration and fund of knowledge is adequate. His reading is moderately impaired. On cranial nerve examination, pupils are equal, round and reacting to light, visual orozco are full on confrontation, with no neglect on double simultaneous stimulation. Extraocular muscles are intact with no nystagmus. Patient has mild right facial weakness, central type. His tongue protrudes to the midline. Palatal elevation and sensation normal, hearing and shoulder shrug normal, facial sensation normal. On muscle strength testing, there is right pronator drift, about 15 degree. There is mild right leg drift as well. On muscle strength testing, the strength is completely normal in the arms and legs, except right psychologist chief, which is 5-and right ankle dorsiflexion when checking with toe extension is 5- as well. Otherwise everything is normal. Deep tendon reflexes are symmetric trace to 1 and plantar is upgoing on the rig ht, down on the left. Sensory to touch is equal with no neglect on double simultaneous stimulation. Cerebellar function showed mild ataxia for [id number] and [id number] testing on the right side only, but no ataxia on the left side. Tone and bulk of muscles normal. Gait deferred.. On general examination, there is no carotid bruit or murmur, S1-S2 audible. Chest is clear on consultation. Abdomen is soft nontender. No organomegaly, bowel sounds present. Peripheral pulses are present. Mild peripheral edema. Results - Laboratory Findings CBC and BMP: 09/24/24 01:23 09/24/24 01:23 Abnormal Lab Findings: Abnormal Labs 09/24/24 09/24/24 01:23 01:31 Sodium 133 L Chloride 94 L BUN 21 H Glucose 469 H Urine Protein Trace H Urine Glucose (UA) 4+ H Urine Ketones 1+ H Assessment and Plan Assessment: * Acute ischemic stroke, with expressive aphasia and right hemiparesis. Current NIH stroke scale is 6. Patient was not a candidate for TNK, as he came outside the window for TNK. No large vessel occlusion noted on the CTA. * New onset atrial fibrillation with rapid ventricular rate * Hypertension * Diabetes, poorly controlled * Noncompliance with medications * Obesity * Ex tobacco use Plan: MRI of the brain without contrast, evaluate for acute CVA, rule out any hemorrhagic conversion. 2-D echo with bubble study to rule out PFO CTA of head. Revealed bilateral severe focal stenosis versus partial occlusion mid [employer]. Atretic/decreased caliber of vessels in the left M1/M2 junction and M2 branches. Remaining vessels are intact. CTA of the neck showed no significant stenosis.. Carotid Doppler revealed no evidence of hemodynamic significant stenosis, antegrade flow in both vertebral arteries. Fasting a.m. lipid panel. Patient started on Lipitor 80 mg daily. Hemoglobin A1c Permissive hypertension for next 24-48 hours. Treat blood pressure if > 220/120 Start aspirin 325 mg daily. Patient believes that he is getting better as compared to yesterday. Patient has new onset atrial fibrillation. We will hold off anticoagulation until MRI is completed and hemorrhagic conversion ruled out. Discussed with cardiology. Neuro checks every 2 hours. Telemetry monitoring rule out any arrhythmia PT, OT, speech therapy DVT prophylaxis: Lovenox 40 mg subcu daily. Neurology will continue to follow. Thank you for the consult.
[2024-09-25] MEDS: DAPAGLIFLOZIN PROPANEDIOL 10 MG TABLET PO SCH (10:10)
[2024-09-25] MEDS: LOSARTAN 25 MG TAB PO SCH (10:10)
[2024-09-25] MEDS: ENOXAPARIN 40 MG/0.4 ML SYRINGE SQ SCH (10:10)
[2024-09-25] MEDS: METOPROLOL TARTRATE 50 MG TAB PO SCH (10:10)
--- NOTE | 2024-09-25 10:16 | P.PN ---
Subjective HISTORY OF PRESENT ILLNESS: This is a 59-year-old male with a past medical history significant for obstructive sleep apnea, obesity, hypertension, diabetes, and CVA/TIA. 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 We have been asked to see the patient in consultation for atrial fibrillation. Patient examined at the bedside in the emergency room. Patient presented to the hospital for chief complaint of right- sided weakness and expressive aphasia. The patient denies any chest pain or pressure. He denies any shortness of breath. He does report having palpitations. The patient was found to be in atrial fibrillation. He denies any known history of atrial fibrillation. Bedside telemetry reveals sinus mechanism with a heart rate in the 80s. Patient continues to report right-sided weakness at the time of examination. He states his speech has improved but is not back to his baseline yet. DIAGNOSTICS: - EKG reveals atrial fibrillation. Repeat EKG reveals sinus mechanism. - Chest xray negative for acute process - Laboratory data: WBC 5.7. Hemoglobin 16.0. Platelet count 220. Sodium 133. Potassium 4.6. BUN 21. Creatinine 0.82. Troponin negative x 1. TSH 3.070. - Current home cardiac medications include none 09/25/2024 Patient examined this morning at the bedside. Patient denies chest pain or pressure. Denies SOB. He continues to have expressive aphasia although slightly improved today. He reports worsening right sided weakness. He is only able to lift his right leg off the bed about 2 inches. Bedside telemetry reveals sinus mechanism. Echocardiogram completed revealing ejection fraction 30 to 35% with global reduced left ventricular systolic function, negative bubble study, intra- atrial septum aneurysm, mild to moderate MR, trace AR, trace TR. PHYSICAL EXAM: VITAL SIGNS: Reviewed. GENERAL: Well-developed in no acute distress. HEENT: Head is normocephalic. Drooping of right nasolabial fold. Pupils are equal, round. Sclerae anicteric. Mucous membranes of the mouth are moist. Neck supple. No JVD or thyromegaly LUNGS: Respirations even and unlabored. Lungs essentially clear to auscultation bilaterally. HEART: Regular rate and rhythm. S1 and S2 heard. ABDOMEN: Soft. Nondistended. Nontender. EXTREMITIES: Right-sided weakness.. No clubbing or cyanosis. Peripheral pulses intact. No lower extremity edema NEUROLOGIC: Awake and alert. Oriented x 3. ASSESSMENT: Right-sided weakness with expressive aphasia, acute CVA New onset atrial fibrillation, currently maintaining sinus mechanism New onset cardiomyopathy, 30 to 35%, ischemic versus nonischemic Obstructive sleep apnea with CPAP use Hypertension Hyperlipidemia, LDL 168, total cholesterol 292 Hypertriglyceridemia, 675 Diabetes, uncontrolled, hemoglobin A1c 13.0 Morbid obesity: BMI 45.9 History of CVA/TIA, 15 years ago, "light one" per patient PLAN: Continue current cardiac medications Continue current dose of metoprolol Discontinue amlodipine. Begin losartan 25 mg daily. Permissive hypertension for next 24 hours. Add Farxiga 10 mg daily Case discussed yesterday with neurology who would like to wait for MRI results to begin anticoagulation Continue to monitor telemetry and blood pressure Further recommendations pending patient course Nurse practitioner note has been reviewed by physician. Signing provider agrees with the documented findings, assessment, and plan of care documented by BUSINESS PERFORMANCE ANALYST as a scribe. Objective - Vital Signs Vital signs: Vital Signs Temp 98.8 F 09/25/24 05:46 Pulse 92 09/25/24 07:43 Resp 22 09/25/24 07:43 BP 192/111 09/25/24 07:43 Pulse Ox 95 09/25/24 07:43 FiO2 Intake & Output 09/24/24 09/25/24 09/25/24 18:59 06:59 18:59 Output Total 1450 Balance -1450 Output: Urine 1450 - Labs CBC & Chem 7: 09/24/24 01:23 09/24/24 01:23 Labs: Abnormal Lab Results - Last 24 Hours (Table) 09/24/24 09/24/24 09/25/24 Range/Units 01:23 21:22 07:28 POC Glucose (mg/dL) 229 H 252 H (70-110) mg/dL Hemoglobin A1c 13.0 H (<=6.0) %
--- NOTE | 2024-09-25 11:46 | P.CONS ---
History of Present Illness - Reason for Consult Consult date: 09/25/24 CVA - Chief Complaint right sided weakness and slurred speech - History of Present Illness Mr Telly Zaman is a right handed male who lives with , his mother in law and 2 sons in a story home with 2 small GENESIS. Prior to admission, patient was independent. History is per chart and his secondary to significant aphasia. Patient presented to [facility] for slurred speech and right sided weakness. He was last known well at and around 8-9 PM 09/23. Per records noticed that his gait was off and that he was "wobbly" and had weakness of his right hand, could not crane oiler the remote control of their television. He also reported to have slurred speech, right-sided facial droop, confusion. His checked his blood pressure and it was elevated at the [address] on admission showed no acute hemorrhage, hydrocephalus or mass effect, old left basal ganglia infarct seen. CT angiography of the head showed bilateral severe focal stenosis versus partial occlusion of the mid CHART SNATCHER, atretic/decreased caliber of vessels in the left M1/M2 junction and M2 branches, remaining vessels are intact. CT angiography of the neck with contrast showed no significant stenosis or dissection of the left and right ICA, common carotid arteries, and vertebral arteries. Chest x-ray showed no focal consolidation or acute cardiopulmonary process. EKG showed atrial. Fibrillation with a rate of 101, no ST-T changes. Labs on admission showed WBC 5.7, hemoglobin 16, platelet count 220, PT 10.4, INR 0.9, PTT 22.8, sodium 133, potassium 4.6, chloride 94, BUN 21, creatinine 0.82, glucose 469, AST 23, ALT 33, alk phos 56, creatinine kinase 109, troponin 0.0 15, albumin 4.4. Urinalysis showed trace protein, +4 glucose, +1 ketones. UDS negative. Patient started on Aspirin 325 mg p.o. daily, Lipitor 80 mg p.o. daily, labetalol 20 mg IVP, and 1 L normal saline 0.9% initiated in the ED. Neurology consulted, MRI brain ordered, pending. Note to have new onset Afib with RVR. PM&R consulted for rehab recommendations. Patient was seen by MEDICAL TRANSCRIPTION EDITOR cleared for regular diet thin liquids, pending PT/OT. He does answer yes/no, generally appropriate. He admits to right sided weakness; denies LUCAS, dizziness, CP, SOB, abdominal pain or numbness/tingling. His note he is weaker today than yesterday, unable to move right arm and not able to lift right leg as high. Review of Systems reviewed, negative unless stated above in HPI Past Medical History Past Medical History: CVA/TIA, Diabetes Mellitus, Myocardial Infarction ([place]), Sleep Apnea/CPAP/BIPAP, Thyroid Disorder Additional Past Medical History / Comment(s): states possible tia and silent [place],uses bipap, Last Myocardial Infarction Date:: ?silent History of Any Multi-Drug Resistant Organisms: None Reported Past Surgical History: Back Surgery, Orthopedic Surgery Additional Past Surgical History / Comment(s): aundrea carpal tunnel, neck fusion, lower back surgery, laminectomy and discectomy Past Anesthesia/Blood Transfusion Reactions: No Reported Reaction Past Psychological History: Anxiety Smoking Status: Former smoker Past Alcohol Use History: Rare Additional Past Alcohol Use History / Comment(s): quit 15 yrs ago Past Drug Use History: None Reported Additional Drug Use History / Comment(s): CBD oil occasional not to use 24 hours prior - Past Family History Mother Family Medical History: No Reported History Medications and Allergies Home Medications Medication Instructions Recorded Confirmed Type Levothyroxine Sodium [Synthroid] 137 mcg PO DAILY 01/04/16 09/24/24 History Berberine Chloride [Berberine] 500 mg PO DAILY 09/24/24 09/24/24 History Cholecalciferol (Vitamin D3) 75 mcg PO DAILY 09/24/24 09/24/24 History [Vitamin D3 (3000 Iu)] Multivitamins, Thera [Multivitamin 1 tab PO DAILY 09/24/24 09/24/24 History (formulary)] Nitric Oxide (Unknown Dose) 1 dose PO DAILY 09/24/24 09/24/24 History Turmeric Root Extract [Turmeric 500 mg PO DAILY 09/24/24 09/24/24 History Curcumin] Allergies Allergy/AdvReac Type Severity Reaction Status Date / Time aspirin AdvReac Abdominal Verified 09/24/24 08:26 Pain Physical Exam Vitals: Vital Signs Temp Pulse Resp BP Pulse Ox 09/25/24 10:12 86 26 H 175/97 94 L 09/25/24 07:43 92 22 192/111 95 09/25/24 05:46 98.8 F 92 18 197/98 95 09/25/24 03:16 98.4 F 90 17 202/102 95 09/25/24 00:43 84 19 95 09/25/24 00:06 97.6 F 85 17 168/93 96 09/24/24 21:23 98.6 F 98 18 196/99 100 09/24/24 17:40 85 16 215/124 95 09/24/24 12:11 87 16 203/110 95 Intake and Output 09/24/24 09/25/24 09/25/24 22:59 06:59 14:59 Output Total 1450 Balance -1450 Output: Urine 1450 Physical examination: General: non toxic, no distress, appears at stated age, morbidly obese Derm: no unusual rashes/lesions, warm Head: atraumatic, normocephalic, symmetric Eyes: EOMI ENT: Nose and ears atraumatic Mouth: mucus membranes moist Cardiovascular: No acute cardiac distress, monitoring specialist Lungs: even and non labored respirations, no accessory muscle use Abdominal: soft, nondistended, nontender to palpation, no guarding Ext: no significant LE edema Neuro: CN II-XI grossly with right facial droop, decreased shrug. Speech aphasic, occasional spontaneous speech, yes/no generally accurate. Unable to repeat no ifs ands or but, names 0/3 objects. Unable to follow 3 step commands. MMT 0 out of 5 in upper right and lower right DF, 1-2/5 right HF/KE able to minimally lift off bed. 5 out of 5 strength in left UE/LE except decreased left shoulder. Sensation light touch UE/LE appears intact. Psych: Alert and oriented, answers to his name, limited by aphasia. Results CBC & Chem 7: 09/24/24 01:23 09/24/24 01:23 Labs: Abnormal Lab Results - Last 24 Hours (Table) 09/24/24 09/24/24 09/24/24 Range/Units 01:23 01:23 21:22 POC Glucose (mg/dL) 229 H (70-110) mg/dL Hemoglobin A1c 13.0 H (<=6.0) % Triglycerides 675.00 H (0.00-149.00) mg/dL Cholesterol 292.00 H (0.00-200.00) mg/dL LDL Cholesterol Direct 168.00 H (0.00-129.00) mg/dL VLDL Cholesterol, Calc 135.00 H (5.00-40.00) mg/dL HDL Cholesterol 30.80 L (40.00-60.00) mg/dL 09/25/24 Range/Units 07:28 POC Glucose (mg/dL) 252 H (70-110) mg/dL Hemoglobin A1c (<=6.0) % Triglycerides (0.00-149.00) mg/dL Cholesterol (0.00-200.00) mg/dL LDL Cholesterol Direct (0.00-129.00) mg/dL VLDL Cholesterol, Calc (5.00-40.00) mg/dL HDL Cholesterol (40.00-60.00) mg/dL Assessment and Plan Assessment: # Right hemiparesis secondary to Acute ischemic stroke, with expressive aphasia -therapies (PT/OT pending) -MRI brain pending #impaired gait and ADLs secondary to above #New onset atrial fibrillation with rapid ventricular rate -cardio #Hypertension -meds per OCT #Diabetes, poorly controlled #Noncompliance with medications #Obesity #history of tobacco use # Your medical dx and management Dispo: Patient is pending therapy evaluations and acute care bed. Patient will need insurance authorization prior to rehab. He will definitely need higher level therapies. Anticipate would be appropriate for IPR at [facility] when medically stable, work up complete, pending insurance approval. Will continue to follow. Patient seen and examined by Dr Maradiaga, note remotely prepped by Adam Arguelles
[2024-09-25 12:03] LABS: Glucose,Whole Blood 218 mg/dL (70-110)
--- NOTE | 2024-09-25 13:05 | P.PN ---
Subjective Progress Note Date: 09/25/24 Hospital course: Patient is a very pleasant 59-year-old male with a past medical history of CVA/TIA, hypertension, type II [id number] diabetes mellitus, and hypothyroidism. He presented to the emergency department on 09/24/2024 with reports of right-sided weakness and aphasia. CT brain was negative for acute hemorrhage, hydrocephalus or mass effect. CTA head and neck revealing bilateral severe focal stenosis versus partial occlusion of mid BIOGEOGRAPHER, decreased caliber of vessels in the left M1/M2 junction and M2 branches, bilateral severe focal steno sis versus partial occlusion of mid BIOGEOGRAPHER and no significant carotid stenosis. EKG showing atrial fibrillation with RVR to 101 bpm. Chest x-ray was negative for acute cardiopulmonary process. Labs completed and reviewed. CBC unremarkable. Coagulation profile normal findings. BMP showing sodium 133, chloride of 94, and anion gap of 12 with mild prerenal azotemia with BUN of 21. Blood glucose elevated at 469. Troponin was 0.015. Urinalysis positive for protein, glucose, and ketones. Urine drug screen negative. Serum alcohol less than 10. Patient admitted under our services for acute ischemic CVA and new onset atrial fibrillation with consultation to neurology and cardiology. Repeat morning EKG showing normal sinus mechanism at 83 bpm. Echocardiogram completed showing an impaired EF of 30 to 35% with mild to moderate mitral regurgitation. Carotid Doppler showing no evidence of hemodynamically significant stenosis. Lipid profile showing triglycerides of 675, total cholesterol of 292, LDL of 168, VLDL of 135 and low HDL of 30.8. Hemoglobin A1c was 13.0%. Physical exam: Patient seen and fully evaluated at bedside. Patient's also at bedside. Patient's symptoms worsening currently NIH score is 11. Patient with slightly worsened garbled speech and expressive aphasia, facial droop remains unchanged. Right lower extremity weakness significantly worsened, is now flaccid and sensation absent. Right upper extremity weakness also worsened, patient able to lift arm more from shoulder and elbow but does have positive arm drop and no movement in right hand. Sensation reported to also be absent in right upper extremity and hand. Notified neurologist and spoke with Dr. Ramirez, and called MRI Vital signs reviewed and stable. General: Nontoxic, no distress and appears stated age. Derm: Skin warm and dry, normal coloration for ethnicity. Head: Atraumatic, normocephalic and symmetric. Eyes: EOM's intact, no lid lag, and anicteric sclera Mouth: no lip lesions, mucus membranes moist Cardiovascular: regular rate and rhythm with normal S1S2, no murmur, positive posterior tibial pulses bilaterally, and cap refill < 2 seconds. Lungs: Respirations even, regular, and unlabored on room air. Lungs CTA bilaterally, no rhonchi, no rales, no wheezing, and no accessory muscle usage. Abdominal: soft, nontender to palpation, no guarding, no appreciable organomegaly Ext: No gross muscle atrophy, no edema, no contractures. Right upper extremity weakness 1 out of 5 with flaccid right hand, unable to close fingers or make a fist. Right lower extremity flaccid. Sensation reported absent in right upper and right lower extremity to soft and painful stimuli. Neuro: Expressive aphasia with garbled speech, right-sided facial droop Psych: Alert and oriented to person, place, time, and situation. Appropriate and pleasant affect. Assessment and Plan of Care: Acute ischemic stroke with right sided weakness and moderate aphasia Hyperlipidemia Hypertensive urgency -Continue NIH assessment with neurochecks every 4 hours. -Cardiac monitoring -Fall precautions -Neurology following, discussed in great detail worsening of neurological sym ptoms with neurologist, called and changed MRI to stat and patient scheduled to undergo MRI at 12:30 today. -Echocardiogram completed showing an impaired EF of 30 to 35% with mild to moderate mitral regurgitation -Carotid Doppler showing no evidence of hemodynamically significant stenosis. -PT OT consulted along with consult to inpatient rehab -Continue permissive hypertension for an additional 24 hours secondary to worsening of CVA deficits. Keep BP at less than 220/120. Monitor blood pressu re. Discussed with RN will plan on starting patient on antihypertensive tomorrow morning. -Continue aspirin 325 mg daily and Lipitor 80 mg nightly. Secondary to elevated triglycerides of 675 patient also started on fenofibrate 154 mg daily. -Lipid profile showing triglycerides of 675, total cholesterol of 292, LDL of 168, VLDL of 135 and low HDL of 30.8. Hemoglobin A1c was 13.0%. New onset atrial fibrillation with RVR Cardiomyopathy, newly diagnosed unclear if ischemic vs nonischemic -EKG showed atrial fibrillation with a rate of 101, no ST-T changes. Repeat EKG showing normal sinus mechanism at 83 bpm. -Echocardiogram completed showing an impaired EF of 30 to 35% with mild to moderate mitral regurgitation -Continue metoprolol tartarate 25 mg twice daily -[id number] score 4. Will defer anticoagulation once cleared by neurology. At this time continue Lovenox 40 mg daily for DVT prophylaxis. 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 Diabetes mellitus with Hyperglycemia -Hemoglobin A1c 13%. -Continue glycemic protocol with NovoLog sliding scale. Patient will require discharge on insulin. Hypothyroidism -Continue levothyroxine 137 mcg daily. Obstructive sleep apnea -Continue CPAP nightly and while napping. Data and imaging reviewed: -Echocardiogram completed showing an impaired EF of 30 to 35% with mild to moderate mitral regurgitation -Carotid Doppler showing no evidence of hemodynamically significant stenosis. -Labs reviewed. Lipid profile showing triglycerides of 675, total cholesterol of 292, LDL of 168, VLDL of 135 and low HDL of 30.8. Hemoglobin A1c was 13.0%. -Vital signs reviewed. Blood pressure 199/124, heart rate 84, respiratory rate 24, temp 98.8 F, and SpO2 of 95% on room air. CODE STATUS: Full code DVT prophylaxis: Lovenox Anticipated discharge date: Pending medical course Anticipated discharge place: Pending clinical course Patient was seen independently by Nurse Pracitioner. This document was prepared using PopUp dictation software. Please allow for errors in manager of manufacturing, while rare they do occur. Zack Harley NP rendered care for this patient independently, reviewed the findings and plan as documented in the note above and agree with plan. I did not physically speak with or examine the patient on this date. Objective - Vital Signs Vital signs: Vital Signs Temp 98.8 F 09/25/24 05:46 Pulse 92 09/25/24 07:43 Resp 22 09/25/24 07:43 BP 192/111 09/25/24 07:43 Pulse Ox 95 09/25/24 07:43 FiO2 Intake & Output 09/24/24 09/25/24 09/25/24 18:59 06:59 18:59 Output Total 1450 Balance -1450 Output: Urine 1450 - Labs CBC & Chem 7: 09/24/24 01:23 09/24/24 01:23 Labs: Abnormal Lab Results - Last 24 Hours (Table) 09/24/24 09/24/24 09/25/24 Range/Units 01:23 21:22 07:28 POC Glucose (mg/dL) 229 H 252 H (70-110) mg/dL Hemoglobin A1c 13.0 H (<=6.0) %
[2024-09-25] MEDS: TICAGRELOR 90 MG TAB PO STA (13:36)
--- NOTE | 2024-09-25 14:27 | MR ---
EXAMINATION TYPE: MR brain wo con DATE OF EXAM: 09/25/2024 1:26 PM COMPARISON: None. CLINICAL INDICATION: Male, 59 years old with history of Acute CVA, r/o any hemorrhage, Acute Cva, r/o any hemorrhage TECHNIQUE: Multiplanar, multiecho imaging on a 3.0 Roseanne magnet is performed through the brain. Stud y is performed within 24 hours of arrival to the hospital.Multiplanar, multiecho imaging on a 3.0 Josee la magnet is performed through the knee. IV Contrast: mL (None, if empty) FINDINGS: The craniovertebral junction is normal. The pituitary is normal. Diffusion-weighted imaging is performed. There is focal areas of increased signal within the cortex and subcortical white matter through the inferior left frontal lobe and along the cortex adjacent to the left basal ganglion. This extends into the nevarez radiata and cortical and subcortical regions of the left watershed region Acute ischemic changes are present on diffusion. Areas are somewhat hyperi ntense on T2-weighted sequences. There are additional scattered punctate areas of hyperintensity on T2 and Inversion Recovery weighted sequences bilaterally not correlating with the diffusion which are non-specific but can be related t o chronic microvascular ischemic changes. There are some hyperintensities which correlate with the di ffusion imaging compatible with acute to subacute ischemic changes Ventricles and sulci are appropriate for the patient age. IMPRESSION: 1. Multiple punctate acute ischemic changes left basal ganglion, the left frontal and parietal cortex and subcortical white matter extending to the left watershed region. 2. There are additional chronic appearing punctate subcortical and deep white matter ischemic changes present bilaterally. [facility], , 09/25/2024 2:25 PM
--- NOTE | 2024-09-25 15:26 | CT ---
EXAMINATION TYPE: CT angio head neck DATE OF EXAM: 09/25/2024 COMPARISON: 09/24/2024 CLINICAL INDICATION: Male, 59 years old with history of CVA, worsening; PHH, Worsening CVA TECHNIQUE: CTA scan of the head and neck is performed without and with IV Contrast, patient injected with 65 mL of Isovue 370, axial images are obtained, coronal and sagittal reformatted images are rev iewed. 3D reconstructed images are created on an independent workstation and reviewed. 3-D postproces sing was performed. CT DLP: 1824.[address] CTDI: mGy Automated exposure control for dose reduction was used. NASCET criteria was used in interpretation of this exam? FINDINGS: FINDINGS: The brachiocephalic origins are widely patent and no significant stenosis. There is no significant stenosis of the common or internal carotid arteries within the neck. There is no stenosis of the vertebral arteries. There is a 6 mm aneurysm likely arising from the cavernous segment of the right internal carotid laly ry. MRA of the brain is recommended for further evaluation. There is scattered areas of irregularity in the middle cerebral arteries and posterior cerebral [place] and the possibility of intracranial atheromatous disease should be considered. There is a remote lacunar infarct of the left caudate nucleus. IMPRESSION:. 1. 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 MRA of the brain is recommended for further evaluation. 2. Probable scattered atherosclerotic changes of the intracerebral there are 3 no significant stenosi s of the brachycephalic origins of the carotid bifurcations within the neck. NASCET criteria was used in interpretation of this exam? [facility], , 09/25/2024 3:24 PM
[2024-09-25 16:37] LABS: Glucose,Whole Blood 189 mg/dL (70-110)
[2024-09-25 20:00] LABS: Glucose,Whole Blood 187 mg/dL (70-110)
[2024-09-25] MEDS: METOPROLOL TARTRATE 25 MG TAB PO SCH (21:07)
[2024-09-25] MEDS: TICAGRELOR 90 MG TAB PO SCH (21:07)
--- NOTE | 2024-09-26 00:16 | P.PN ---
Subjective Progress Note Date: 09/25/24 Patient was seen for a follow-up. Patient's family members were present today. Apparently patient's symptoms have got worse since early this morning with worsening of his aphasia, and worsening of right-sided weakness. Patient's NIH stroke scale was 6 at 3:16 AM. However it increased to 14 at 11:05 AM. It is uncertain if patient's stroke has progressed, or rule out hemorrhagic conversion. Although an urgent MRI of the brain was ordered yesterday, but is not scheduled till later this evening. Stat MRI of the brain was ordered. It was scheduled for 12:30 PM. After MRI was completed, I immediately came to see the patient. Patient's NIH stroke scale was 11 at this time, and patient's family and the nurse reported improvement. MRI of the brain revealed multiple punctate acute ischemic changes left basal ganglia on, the left frontal and parietal cortex and subcortical white matter extending to the left watershed region. I personally reviewed MRI of the brain and in my opinion, it is sl ightly more in the MCA vascular territory rather than watershed territory. No obvious hemorrhagic conversion. I spoke to neurointervention Dr. Guerrero, who also recommended CTA of head and neck to rule out left MCA occlusion. 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 MRI of the brain is recommended for further evaluation. There is scattered areas of irregularity in the middle cerebral arteries and posterior cerebral arteries and the possibility of intracranial atheromatous disease should be considered. There is a remote lacunar infarct of the left caudate nucleus. I discussed CT results with neurointervention, who recommended outpatient follow-up in their office for cerebral aneurysm. No intervention recommended at this time. Patient has received metoprolol 25 mg, metoprolol 50 mg and losartan 25 mg this morning. Apparently losartan is needed for cardiac reasons because of heart failure whereas metoprolol for A-fib. Objective - Vital Signs Vital signs: Vital Signs Temp 98.8 F 09/25/24 05:46 Pulse 84 09/25/24 11:20 Resp 24 09/25/24 11:20 BP 199/124 09/25/24 11:20 Pulse Ox 95 09/25/24 11:20 FiO2 Intake & Output 09/24/24 09/25/24 09/25/24 18:59 06:59 18:59 Output Total 1450 Balance -1450 Output: Urine 1450 - Exam Patient is a late middle aged male, in no acute distress. Patient is fully alert and awake, keenly interacting with his family members, trying to talk. Patient is alert awake. Patient has severe expressive aphasia. Patient able to name ears, but not the earlobe. Not able to name any objects. Cannot repeat. Comprehension is intact. Limited speech appeared clear. Patient able to tell me he is 59 years of age, but could not tell the month. On cranial nerve examination, pupils are equal, round and reacting to light, visual orozco are full on confrontation, with no neglect on double simultaneous stimulation. Extraocular muscles are intact with no nystagmus. Face has right facial weakness, central type, tongue protrudes to the midline. Palatal elevation and sensation normal, hearing and shoulder shrug normal, facial sensation normal. On muscle strength testing, there is severe right pronator drift. The arm hits the bed. However he is able to lift his right arm at the elbow off the table, and also able to wiggle his fingers of right hand. He was able to make a right product scientist at least 3+. He is able to lift his right leg, and hold it up with slight drift, but does not hit the bed. He has at least 4-in the right hip flexion, and 4 at the right ankle dorsiflexion. Sensory to touch is equal, but he neglects the left side on double simultaneous stimulation. Cerebellar function showed ataxia for [id number] testing on right side, not able to perform with right upper limb. Tone and bulk of muscles normal. Gait deferred.. On general examination, there is no carotid bruit or murmur, S1-S2 audible. Chest is clear on consultation. Abdomen is soft nontender. No organomegaly, bowel sounds present. - Labs CBC & Chem 7: 09/24/24 01:23 09/24/24 01:23 Labs: Abnormal Lab Results - Last 24 Hours (Table) 09/24/24 09/24/24 09/24/24 Range/Units 01:23 01:23 21:22 POC Glucose (mg/dL) 229 H (70-110) mg/dL Hemoglobin A1c 13.0 H (<=6.0) % Triglycerides 675.00 H (0.00-149.00) mg/dL Cholesterol 292.00 H (0.00-200.00) mg/dL LDL Cholesterol Direct 168.00 H (0.00-129.00) mg/dL VLDL Cholesterol, Calc 135.00 H (5.00-40.00) mg/dL HDL Cholesterol 30.80 L (40.00-60.00) mg/dL 09/25/24 09/25/24 Range/Units 07:28 12:01 POC Glucose (mg/dL) 252 H 218 H (70-110) mg/dL Hemoglobin A1c (<=6.0) % Triglycerides (0.00-149.00) mg/dL Cholesterol (0.00-200.00) mg/dL LDL Cholesterol Direct (0.00-129.00) mg/dL VLDL Cholesterol, Calc (5.00-40.00) mg/dL HDL Cholesterol (40.00-60.00) mg/dL Assessment and Plan Assessment: * Acute ischemic stroke, with expressive aphasia and right hemiparesis. Patient's NIH stroke scale has got worse since early this morning. Current NIH stroke scale is 11. Patient is not a candidate for TNK, due to recent stroke. Repeat CTA of head and neck showed no large vessel occlusion. Patient not a candidate for any mechanical intervention. 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 Likely asymptomatic, as it is on the ipsilateral side of the symptoms. * Intracranial atherosclerotic disease. * New onset atrial fibrillation with rapid ventricular rate * History of CVA/TIA 15 years ago, "light one" per patient. * Congestive heart failure * Hypertension * Diabetes, poorly controlled * Hyperlipidemia * Noncompliance with medications * Obesity * Obstructive sleep apnea * Ex tobacco use Plan: * MRI of the brain without contrast, revealed multiple punctate acute ischemic changes left basal ganglionic, the left frontal and parietal cortex and subc ortical white matter extending to the left watershed region. There are additional chronic appearing punctate subcortical and deep white matter ischemic changes present bilaterally. I personally reviewed MRI agree with the findings. * 2-D echo revealed impaired LV systolic function with EF between 30 to 35%. Mild left ventricular dilation. Moderately reduced global left ventricular systolic function. Mild left atrial dilation. Normal right atrial size. Negative agitated saline bubble study for [id number] shunt. No valvular abnormalities. 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 MRI of the brain is recommended for further evaluation. There is scattered areas of irregularity in the middle cerebral arteries and posterior cerebral arteries and the possibility of intracranial atheromatous disease should be considered. * Discussed with Dr. Guerrero, recommended no intervention at this time. Recommended follow-up in his office outpatient. * Initial CTA of head. Revealed bilateral severe focal stenosis versus partial occlusion mid INSTRUCTOR PILOT. Atretic/decreased caliber of vessels in the left M1/M2 junction and M2 branches. Remaining vessels are intact. CTA of the neck showed no significant stenosis.. . * Fasting a.m. lipid panel with cholesterol 292, LDL 168, HDL 30 and triglycerid es 675. Patient started on Lipitor 80 mg daily. * Hemoglobin A1c 13.0, indicating poorly controlled diabetes. * Permissive hypertension for next 24-48 hours. Treat blood pressure if > 220/120 * Start IV fluids normal saline at 75 cc/h, for 12 hours to increase int ravascular volume. * Patient now started on Brilinta 180 mg loading dose, followed by 90 mg twice daily. We will decrease aspirin to 81 mg daily. * Patient has new onset atrial fibrillation. We will hold off anticoagulation for 3 to 5 days until patient stabilizes. * Neuro checks every 2 hours. * Telemetry monitoring rule out any arrhythmia * PT, OT, speech therapy * DVT prophylaxis: Lovenox 40 mg subcu daily. * Discussed with primary team, and the family members in detail.
[2024-09-26 06:39] LABS: Glucose,Whole Blood 304 mg/dL (70-110)
[2024-09-26 07:28] LABS: HGB 16.7 gm/dL (13.0-17.5); MCH 27.1 pg (25.0-35.0); MCHC 32.7 g/dL (31.0-37.0); MCV 82.9 fL (80.0-100.0); Mean Platelet Volume 9.1; Platelet Count 258 k/uL (150-450); RBC 6.15 m/uL (4.30-5.90); RDW 13.5 % (11.5-15.5); WBC 8.3 k/uL (3.8-10.6)
[2024-09-26 07:41] LABS: ALT 29 U/L (4-49); AST 27 U/L (17-59); African American GFR (CKD) >90 (>60 ml/min/1.73 sqM); Albumin 4.5 g/dL (3.5-5.0); Alkaline Phosphatase 50 U/L (38-126); Anion Gap 17 mmol/L; Blood Urea Nitrogen 15 mg/dL (9-20); Calcium 9.3 mg/dL (8.4-10.2); Carbon Dioxide 25 mmol/L (22-30); Chloride 94 mmol/L (98-107); Glucose 183 mg/dL (74-99); Magnesium 1.8 mg/dL (1.6-2.3); Non-African American GFR(CKD) >90 (>60 ml/min/1.73 sqM); Potassium 4.4 mmol/L (3.5-5.1); Sodium 136 mmol/L (137-145); Total Bilirubin 0.9 mg/dL (0.2-1.3); Total Protein 7.4 g/dL (6.3-8.2)
[2024-09-26] MEDS ORDERED: ASPIRIN 325 MG TAB PO SCH (09:00)
[2024-09-26] MEDS: ASPIRIN 81 MG PO SCH (09:13)
[2024-09-26] MEDS: FENOFIBRATE 160 MG TAB PO SCH (09:14)
[2024-09-26] MEDS: INSULIN DETEMIR (LEVEMIR) 100 UNIT/ML SYR SQ SCH (10:17)
[2024-09-26 11:33] LABS: Glucose,Whole Blood 168 mg/dL (70-110)
[2024-09-26 13:26] VITALS: BMI 45.8
--- NOTE | 2024-09-26 13:37 | P.PN ---
Subjective HISTORY OF PRESENT ILLNESS: This is a 59-year-old male with a past medical history significant for obstructive sleep apnea, obesity, hypertension, diabetes, and CVA/TIA. 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 We have been asked to see the patient in consultation for atrial fibrillation. Patient examined at the bedside in the emergency room. Patient presented to the hospital for chief complaint of right- sided weakness and expressive aphasia. The patient denies any chest pain or pressure. He denies any shortness of breath. He does report having palpitations. The patient was found to be in atrial fibrillation. He denies any known history of atrial fibrillation. Bedside telemetry reveals sinus mechanism with a heart rate in the 80s. Patient continues to report right-sided weakness at the time of examination. He states his speech has improved but is not back to his baseline yet. DIAGNOSTICS: - EKG reveals atrial fibrillation. Repeat EKG reveals sinus mechanism. - Chest xray negative for acute process - Laboratory data: WBC 5.7. Hemoglobin 16.0. Platelet count 220. Sodium 133. Potassium 4.6. BUN 21. Creatinine 0.82. Troponin negative x 1. TSH 3.070. - Current home cardiac medications include none 09/25/2024 Patient examined this morning at the bedside. Patient denies chest pain or pressure. Denies SOB. He continues to have expressive aphasia although slightly improved today. He reports worsening right sided weakness. He is only able to lift his right leg off the bed about 2 inches. Bedside telemetry reveals sinus mechanism. Echocardiogram completed revealing ejection fraction 30 to 35% with global reduced left ventricular systolic function, negative bubble study, intra- atrial septum aneurysm, mild to moderate MR, trace AR, trace TR. 09/26/2024 Patient examined this morning the bedside. Patient denies chest pain or pressure. He denies shortness of breath. Patient reports improvement in his speech today along with improvement in his right sided weakness. MRI completed revealing multiple punctate acute ischemic changes left basal ganglion, left frontal and parietal cortex, and subcortical white matter extending to the left watershed region. Blood pressure 175/84. Telemetry reveals sinus mechanism. PHYSICAL EXAM: VITAL SIGNS: Reviewed. GENERAL: Well-developed in no acute distress. HEENT: Head is normocephalic. Drooping of right nasolabial fold. Pupils are equal, round. Sclerae anicteric. Mucous membranes of the mouth are moist. Neck supple. No JVD or thyromegaly LUNGS: Respirations even and unlabored. Lungs essentially clear to auscultation bilaterally. HEART: Regular rate and rhythm. S1 and S2 heard. ABDOMEN: Soft. Nondistended. Nontender. EXTREMITIES: Right-sided weakness.. No clubbing or cyanosis. Peripheral pulses intact. No lower extremity edema NEUROLOGIC: Awake and alert. Oriented x 3. ASSESSMENT: Right-sided weakness with expressive aphasia, acute CVA New onset atrial fibrillation, currently maintaining sinus mechanism New onset cardiomyopathy, 30 to 35%, ischemic versus nonischemic Obstructive sleep apnea with CPAP use Hypertension Hyperlipidemia, LDL 168, total cholesterol 292 Hypertriglyceridemia, 675 Diabetes, uncontrolled, hemoglobin A1c 13.0 Morbid obesity: BMI 45.9 History of CVA/TIA, 15 years ago, "light one" per patient PLAN: Continue current cardiac medications Continue current dose of metoprolol and [facility] states that neurology requesting that losartan be held to allow for permissive hypertension Patient needs to be anticoagulated due to new onset atrial fibrillation. Awaiting clearance from neurology. Continue to monitor telemetry and blood pressure Further recommendations pending patient course Nurse practitioner note has been reviewed by physician. Signing provider agrees with the documented findings, assessment, and plan of care documented by HEARING AIDE TECHNICIAN as a scribe. Objective - Vital Signs Vital signs: Vital Signs Temp 97.4 F L 09/26/24 08:00 Pulse 92 09/26/24 08:00 Resp 16 09/26/24 08:00 BP 175/84 09/26/24 08:00 Pulse Ox 96 09/26/24 08:00 FiO2 Intake & Output 09/25/24 09/26/24 09/26/24 18:59 06:59 18:59 Intake Total 118 180 Output Total 500 900 Balance 118 -500 -720 Weight 145.15 kg 145 kg Intake: Oral 118 180 Output: Urine 500 900 Other: Voiding Method External Catheter External Catheter - Labs CBC & Chem 7: 09/26/24 06:13 09/26/24 06:13 Labs: Abnormal Lab Results - Last 24 Hours (Table) 09/25/24 09/25/24 09/25/24 Range/Units 12:01 16:35 19:55 RBC (4.30-5.90) m/uL Sodium (137-145) mmol/L Chloride (98-107) mmol/L Glucose (74-99) mg/dL POC Glucose (mg/dL) 218 H 189 H 187 H (70-110) mg/dL 09/26/24 09/26/24 09/26/24 Range/Units 06:13 06:13 06:37 RBC 6.15 H (4.30-5.90) m/uL Sodium 136 L (137-145) mmol/L Chloride 94 L (98-107) mmol/L Glucose 183 H (74-99) mg/dL POC Glucose (mg/dL) 304 H (70-110) mg/dL 09/26/24 Range/Units 11:31 RBC (4.30-5.90) m/uL Sodium (137-145) mmol/L Chloride (98-107) mmol/L Glucose (74-99) mg/dL POC Glucose (mg/dL) 168 H (70-110) mg/dL
--- NOTE | 2024-09-26 15:29 | MR ---
CLINICAL INDICATION: Cerebral aneurysm, intracranial atherosclerotic disease COMPARISON: CTA head and neck 09/25/2024, MR brain 09/25/2024 TECHNIQUE: MR angiography of the head was performed utilizing 3-D noncontrast time of flight images. 3-D reformatted MIP images were generated on a separate workstation for review. Vascular assessment was performed utilizing NASCET criteria. Findings: Vertebral arteries: The vertebral arteries are patent. The left vertebral artery is dominant. Basilar artery: The basilar artery is intact. The basilar artery bifurcation is normal. Internal Carotid arteries: The cervical, petrous, cavernous and supraclinoid segments are patent. Mil d atherosclerotic plaque within the cavernous and petrous portions of the left internal carotid arter y. No evidence of aneurysm. CYNDI: Patent with no evidence of aneurysm. ACOM: Present without evidence of aneurysm. MCA: Patent with no evidence of aneurysm. OFFICE ASSISTANT: Patent with no evidence of aneurysm. PCOM: Patent with no evidence of aneurysm. IMPRESSION: No evidence for focal stenosis, occlusion or aneurysm. CT abnormality is favored to represent promine nce of the posterior wall of the sella. [facility], , 09/26/2024 3:27 PM
[2024-09-26] MEDS: bisacodyL 5 MG TABLET.DR PO STA (15:53)
--- NOTE | 2024-09-26 16:03 | P.PN ---
Subjective Progress Note Date: 09/26/24 Hospital course: Patient is a very pleasant 59-year-old male with a past medical history of CVA/TIA, hypertension, type II [id number] diabetes mellitus, and hypothyroidism. He presented to the emergency department on 09/24/2024 with reports of right-sided weakness and aphasia. CT brain was negative for acute hemorrhage, hydrocephalus or mass effect. CTA head and neck revealing bilateral severe focal stenosis versus partial occlusion of mid FOUNDRY HELPER, decreased caliber of vessels in the left M1/M2 junction and M2 branches, bilateral severe focal steno sis versus partial occlusion of mid FOUNDRY HELPER and no significant carotid stenosis. EKG showing atrial fibrillation with RVR to 101 bpm. Chest x-ray was negative for acute cardiopulmonary process. Labs completed and reviewed. CBC unremarkable. Coagulation profile normal findings. BMP showing sodium 133, chloride of 94, and anion gap of 12 with mild prerenal azotemia with BUN of 21. Blood glucose elevated at 469. Troponin was 0.015. Urinalysis positive for protein, glucose, and ketones. Urine drug screen negative. Serum alcohol less than 10. Patient admitted under our services for acute ischemic CVA and new onset atrial fibrillation with consultation to neurology and cardiology. Repeat morning EKG showing normal sinus mechanism at 83 bpm. Echocardiogram completed showing an impaired EF of 30 to 35% with mild to moderate mitral regurgitation. Carotid Doppler showing no evidence of hemodynamically significant stenosis. Lipid profile showing triglycerides of 675, total cholesterol of 292, LDL of 168, VLDL of 135 and low HDL of 30.8. Hemoglobin A1c was 13.0%. MRI brain completed showing multiple punctate acute ischemic changes of left basal ganglia on, left frontal and parietal cortex, subcortical white matter extending to the left watershed region with additional chronic appearing punctate subcortical and deep white matter ischemic changes present bilaterally. Physical exam: Patient seen and fully evaluated at bedside this morning. Stroke deficits appear to be significantly improving. Patient back to being able to open and cl ose right hand, sensation improved in upper and lower extremity and right lower extremity again with movement. Speech even appears to be improved this morning. Vital signs reviewed and stable. General: Nontoxic, no distress and appears stated age. Derm: Skin warm and dry, normal coloration for ethnicity. Head: Atraumatic, normocephalic and symmetric. Eyes: EOM's intact, no lid lag, and anicteric sclera Mouth: no lip lesions, mucus membranes moist Cardiovascular: regular rate and rhythm with normal S1S2, no murmur, positive posterior tibial pulses bilaterally, and cap refill < 2 seconds. Lungs: Respirations even, regular, and unlabored on room air. Lungs CTA bilaterally, no rhonchi, no rales, no wheezing, and no accessory muscle usage. Abdominal: soft, nontender to palpation, no guarding, no appreciable organomegaly Ext: No gross muscle atrophy, no edema, no contractures. Right upper and lower extremity strength currently 3 out of 5 when compared to left. Patient now able to open and close right hand and make a fist again, continues to have right arm drop but improving. Sensation decreased but intact upon assessment. Neuro: Expressive aphasia with garbled speech but improving, right-sided facial droop Psych: Alert and oriented to person, place, time, and situation. Appropriate and pleasant affect. Assessment and Plan of Care: Acute ischemic stroke with right sided weakness and moderate aphasia Hyperlipidemia Hypertensive urgency -Continue NIH assessment with neurochecks every 4 hours. -MRI brain completed showing multiple punctate acute ischemic changes of left basal ganglia on, left frontal and parietal cortex, subcortical white matter extending to the left watershed region with additional chronic appearing punctate subcortical and deep white matter ischemic changes present bilaterally. -Neurology following, discussed in detail with Dr. Ramirez. Patient to be started on Brilinta and order being placed for MRA of brain. -Cardiac monitoring -Fall precautions -Carotid Doppler showing no evidence of hemodynamically significant stenosis. -PT OT consulted along with consult to inpatient rehab -Continue permissive hypertension for an additional 24 hours per neurologist, keep BP at less than 220/120. Monitor blood pressure. -Continue aspirin 81 mg daily, atorvastatin 80 mg nightly, Brilinta 90 mg twice daily, and fenofibrate 160 mg daily. -Lipid profile showing triglycerides of 675, total cholesterol of 292, LDL of 168, VLDL of 135 and low HDL of 30.8. Hemoglobin A1c was 13.0%. New onset atrial fibrillation with RVR Cardiomyopathy, newly diagnosed unclear if ischemic vs nonischemic -EKG showed atrial fibrillation with a rate of 101, no ST-T changes. Repeat EKG showing normal sinus mechanism at 83 bpm. -Echocardiogram completed showing an impaired EF of 30 to 35% with mild to moderate mitral regurgitation -Continue metoprolol tartarate 25 mg twice daily, atorvastatin 80 mg nightly, fenofibrate 160 mg daily, losartan 25 mg daily, and metoprolol 25 mg twice daily. -[id number] score 4. Will defer anticoagulation pending clearance by neurology. At this time continue Lovenox 40 mg daily for DVT prophylaxis. -Cardiology following, discussed plan of care with cardiac ZONE MANAGER. Diabetes mellitus with Hyperglycemia -Hemoglobin A1c 13%.. Had long discussion with patient about hemoglobin A1c of 13%. -Continue glycemic protocol with NovoLog sliding scale. Glucose levels remain elevated currently 304. Order placed for Levemir 15 units daily in addition to sliding scale. -Would recommend discharge on insulin. Informed patient that he will need to be discharged on insulin and patient adamantly against it at this time. Patient reports "we can talk about this another time, I am not discussing this right now". Hypothyroidism -Continue levothyroxine 137 mcg daily. Obstructive sleep apnea -Continue CPAP nightly and while napping. Data and imaging reviewed: -MRI brain completed showing multiple punctate acute ischemic changes of left ba aníbal ganglia on, left frontal and parietal cortex, subcortical white matter extending to the left watershed region with additional chronic appearing punctate subcortical and deep white matter ischemic changes present bilaterally. -Labs reviewed. CBC unremarkable. BMP showing sodium 136, chloride 94 and blood glucose of 304 this morning. Magnesium 1.8. Liver profile unremarkable. -Vital signs reviewed. Blood pressure 175/84, heart rate 92, respiratory rate 16, temp 97.4 F, and SpO2 of 96% on CPAP and 95% on room air. CODE STATUS: Full code DVT prophylaxis: Lovenox Anticipated discharge date: Pending medical course Anticipated discharge place: Pending clinical course Patient was seen independently by Nurse Pracitioner. This document was prepared using [employer] dictation software. Please allow for errors in channeler, while rare they do occur. Zack Harley ZONE MANAGER rendered care for this patient independently, reviewed the findings and plan as documented in the note above and agree with plan. I did not physically speak with or examine the patient on this date. Objective - Vital Signs Vital signs: Vital Signs Temp 98.0 F 09/26/24 04:00 Pulse 77 09/26/24 04:00 Resp 16 09/26/24 04:00 BP 184/114 09/26/24 04:00 Pulse Ox 96 09/26/24 04:00 FiO2 Intake & Output 09/25/24 09/26/24 09/26/24 18:59 06:59 18:59 Intake Total 118 Output Total 500 Balance 118 -500 Weight 145.15 kg 145 kg Intake: Oral 118 Output: Urine 500 Other: Voiding Method External Catheter - Labs CBC & Chem 7: 09/26/24 06:13 09/26/24 06:13 Labs: Abnormal Lab Results - Last 24 Hours (Table) 09/24/24 09/25/24 09/25/24 Range/Units 01:23 12:01 16:35 RBC (4.30-5.90) m/uL Sodium (137-145) mmol/L Chloride (98-107) mmol/L Glucose (74-99) mg/dL POC Glucose (mg/dL) 218 H 189 H (70-110) mg/dL Triglycerides 675.00 H (0.00-149.00) mg/dL Cholesterol 292.00 H (0.00-200.00) mg/dL LDL Cholesterol Direct 168.00 H (0.00-129.00) mg/dL VLDL Cholesterol, Calc 135.00 H (5.00-40.00) mg/dL HDL Cholesterol 30.80 L (40.00-60.00) mg/dL 09/25/24 09/26/24 09/26/24 Range/Units 19:55 06:13 06:13 RBC 6.15 H (4.30-5.90) m/uL Sodium 136 L (137-145) mmol/L Chloride 94 L (98-107) mmol/L Glucose 183 H (74-99) mg/dL POC Glucose (mg/dL) 187 H (70-110) mg/dL Triglycerides (0.00-149.00) mg/dL Cholesterol (0.00-200.00) mg/dL LDL Cholesterol Direct (0.00-129.00) mg/dL VLDL Cholesterol, Calc (5.00-40.00) mg/dL HDL Cholesterol (40.00-60.00) mg/dL 09/26/24 Range/Units 06:37 RBC (4.30-5.90) m/uL Sodium (137-145) mmol/L Chloride (98-107) mmol/L Glucose (74-99) mg/dL POC Glucose (mg/dL) 304 H (70-110) mg/dL Triglycerides (0.00-149.00) mg/dL Cholesterol (0.00-200.00) mg/dL LDL Cholesterol Direct (0.00-129.00) mg/dL VLDL Cholesterol, Calc (5.00-40.00) mg/dL HDL Cholesterol (40.00-60.00) mg/dL
[2024-09-26 16:08] LABS: Glucose,Whole Blood 193 mg/dL (70-110)
[2024-09-26] MEDS ORDERED: ZINC OXIDE PASTE (Z-GUARD) 1 APPLIC TOPICAL PRN (17:31)
[2024-09-26 20:04] LABS: Glucose,Whole Blood 213 mg/dL (70-110)
[2024-09-26] MEDS: polyethylene glycoL 3350 17 GM POWD.PACK PO SCH (21:10)
--- NOTE | 2024-09-26 22:56 | P.PN ---
Subjective Progress Note Date: 09/26/24 Patient was seen for a follow-up. Patient is sitting in the recliner, where he is alert and awake. Patient's was also present at the bedside. Patient has remarkably improved today. Patient denies headache. Please refer to examination below. Objective - Vital Signs Vital signs: Vital Signs Temp 97.4 F L 09/26/24 08:00 Pulse 88 09/26/24 16:00 Resp 16 09/26/24 16:00 BP 184/92 09/26/24 16:00 Pulse Ox 96 09/26/24 16:00 FiO2 Intake & Output 09/26/24 09/26/24 09/27/24 06:59 18:59 06:59 Intake Total 540 Output Total 500 1500 Balance -500 -960 Weight 145 kg 145 kg Intake: Oral 540 Output: Urine 500 1500 Other: Voiding Method External Catheter External Catheter - Exam Patient is a late middle aged male, in no acute distress. Patient is fully alert and awake, keenly interacting with his family members. Patient's speech has remarkably improved. There is no dysarthria. He has mild to moderate expressive aphasia. Comprehension is very intact. Patient able to name objects like knuckles, ear, which he was not able to do in the last couple days. He has some word finding difficulty but he can express quite well. Patient able to tell the month and his age. On cranial nerve examination, pupils are equal, round and reacting to light, visual orozco are full on confrontation, with no neglect on double simultaneous stimulation. Extraocular muscles are intact with no nystagmus. Patient has v wood slight flattening of the nasolabial fold. Otherwise appears normal on objective testing. His tongue protrudes to the midline. Palatal elevation and sensation normal, hearing and, facial sensation normal. On muscle strength testing, there is severe right pronator drift. The arm does not completely hit the bed. In the right lower limb, patient slightly moves the leg up and down, but very minimal drift. The strength is normal in the left arm and left leg. On the right side, deltoid 4-, biceps 5, triceps 5, [place] 4+, hip flexion 4+5-, knee extension 5, ankle dorsiflexion 2. Sensory to touch is equal, with no neglect on double simultaneous stimulation. Cerebellar function showed ataxia for [id number] testing only on the right side. No ataxia in the lower limbs, although it was slightly difficult for him to do with the right leg. Tone and bulk of muscles normal. Gait deferred.. On general examination, there is no carotid bruit or murmur, S1-S2 audible. Chest is clear on consultation. Abdomen is soft nontender. No organomegaly, bowel sounds present. - Labs CBC & Chem 7: 09/26/24 06:13 09/26/24 06:13 Labs: Abnormal Lab Results - Last 24 Hours (Table) 09/26/24 09/26/24 09/26/24 Range/Units 06:13 06:13 06:37 RBC 6.15 H (4.30-5.90) m/uL Sodium 136 L (137-145) mmol/L Chloride 94 L (98-107) mmol/L Glucose 183 H (74-99) mg/dL POC Glucose (mg/dL) 304 H (70-110) mg/dL 09/26/24 09/26/24 09/26/24 Range/Units 11:31 16:06 20:02 RBC (4.30-5.90) m/uL Sodium (137-145) mmol/L Chloride (98-107) mmol/L Glucose (74-99) mg/dL POC Glucose (mg/dL) 168 H 193 H 213 H (70-110) mg/dL Assessment and Plan Assessment: * Acute ischemic stroke, with expressive aphasia and right hemiparesis. Patient has remarkably improved today. Current NIH stroke scale is 6 (yesterday NIHSS was 11 on my examination). 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 Likely asymptomatic, as it is on the ipsilateral side of the symptoms. * Intracranial atherosclerotic disease. * New onset atrial fibrillation with rapid ventricular rate * History of CVA/TIA 15 years ago, "light one" per patient. * Congestive heart failure * Hypertension * Diabetes, poorly controlled * Hyperlipidemia * Noncompliance with medications * Obesity * Obstructive sleep apnea * Ex tobacco use Plan: * Patient had got worse on day 2 of admission, but today has remarkably improved. Patient's NIH stroke scale has improved to 6, as compared to 11 yesterday. * MRI of the brain without contrast, revealed multiple punctate acute ischemic changes left basal ganglionic, the left frontal and parietal cortex and subcortical white matter extending to the left watershed region. There are additional chronic appearing punctate subcortical and deep white matter ischemic changes present bilaterally. I personally reviewed MRI agree with the findings. * 2-D echo revealed impaired LV systolic function with EF between 30 to 35%. Mild left ventricular dilation. Moderately reduced global left ventricular systolic function. Mild left atrial dilation. Normal right atrial size. Negative agitated saline bubble study for [id number] shunt. No valvular abnormalities. 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 MRI of the brain is recommended for further evaluation. There is scattered areas of irregularity in the middle cerebral arteries and posterior cerebral arteries and the possibility of intracranial atheromatous disease should be considered. * Discussed with Dr. Guerrero, recommended no intervention at this time. Recommended follow-up in his office outpatient. * MRA of the brain revealed no evidence for focal stenosis, occlusion or aneur ysm. CT abnormality is favored to represent prominence of the posterior wall of the sella.. I personally reviewed MRI agree with the findings. . * Fasting a.m. lipid panel with cholesterol 292, LDL 168, HDL 30 and triglycerides 675. Patient started on Lipitor 80 mg daily. * Hemoglobin A1c 13.0, indicating poorly controlled diabetes. Patient started on Farxiga * Permissive hypertension for next 24-48 hours. Treat blood pressure if > 220/120. Patient has remarkably improved. * Patient now started on Brilinta 180 mg loading dose, followed by 90 mg twice daily. We will decrease aspirin to 81 mg daily. * Patient has new onset atrial fibrillation. We will hold off anticoagulation for 3 to 5 days until patient stabilizes. * Neuro checks every 2 hours. * Telemetry monitoring rule out any arrhythmia * PT, OT, speech therapy * DVT prophylaxis: Lovenox 40 mg subcu daily. * Discussed with primary team, and the family members in detail.
[2024-09-27 02:24] LABS: Glucose,Whole Blood 180 mg/dL (70-110)
[2024-09-27 05:56] LABS: Glucose,Whole Blood 171 mg/dL (70-110)
[2024-09-27] MEDS: INSULIN GLARGINE (LANTUS) 100 UNIT/ML SYR SQ SCH (06:38)
[2024-09-27 06:48] LABS: HCT 50.9 % (39.0-53.0); HGB 16.6 gm/dL (13.0-17.5); MCH 27.2 pg (25.0-35.0); MCHC 32.6 g/dL (31.0-37.0); MCV 83.3 fL (80.0-100.0); Mean Platelet Volume 8.9; Platelet Count 239 k/uL (150-450); RBC 6.11 m/uL (4.30-5.90); RDW 13.5 % (11.5-15.5)
[2024-09-27 07:01] LABS: ALT 28 U/L (4-49); AST 24 U/L (17-59); African American GFR (CKD) >90 (>60 ml/min/1.73 sqM); Albumin 4.1 g/dL (3.5-5.0); Alkaline Phosphatase 49 U/L (38-126); Anion Gap 15 mmol/L; Blood Urea Nitrogen 20 mg/dL (9-20); Calcium 9.3 mg/dL (8.4-10.2); Carbon Dioxide 24 mmol/L (22-30); Chloride 95 mmol/L (98-107); Glucose 168 mg/dL (74-99); Magnesium 1.8 mg/dL (1.6-2.3); Non-African American GFR(CKD) >90 (>60 ml/min/1.73 sqM); Potassium 4.3 mmol/L (3.5-5.1); Sodium 134 mmol/L (137-145); Total Bilirubin 0.8 mg/dL (0.2-1.3)
[2024-09-27 11:58] LABS: Glucose,Whole Blood 168 mg/dL (70-110)
--- NOTE | 2024-09-27 12:36 | P.PN ---
Subjective HISTORY OF PRESENT ILLNESS: This is a 59-year-old male with a past medical history significant for obstructive sleep apnea, obesity, hypertension, diabetes, and CVA/TIA. 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 We have been asked to see the patient in consultation for atrial fibrillation. Patient examined at the bedside in the emergency room. Patient presented to the hospital for chief complaint of right- sided weakness and expressive aphasia. The patient denies any chest pain or pressure. He denies any shortness of breath. He does report having palpitations. The patient was found to be in atrial fibrillation. He denies any known history of atrial fibrillation. Bedside telemetry reveals sinus mechanism with a heart rate in the 80s. Patient continues to report right-sided weakness at the time of examination. He states his speech has improved but is not back to his baseline yet. DIAGNOSTICS: - EKG reveals atrial fibrillation. Repeat EKG reveals sinus mechanism. - Chest xray negative for acute process - Laboratory data: WBC 5.7. Hemoglobin 16.0. Platelet count 220. Sodium 133. Potassium 4.6. BUN 21. Creatinine 0.82. Troponin negative x 1. TSH 3.070. - Current home cardiac medications include none 09/25/2024 Patient examined this morning at the bedside. Patient denies chest pain or pressure. Denies SOB. He continues to have expressive aphasia although slightly improved today. He reports worsening right sided weakness. He is only able to lift his right leg off the bed about 2 inches. Bedside telemetry reveals sinus mechanism. Echocardiogram completed revealing ejection fraction 30 to 35% with global reduced left ventricular systolic function, negative bubble study, intra- atrial septum aneurysm, mild to moderate MR, trace AR, trace TR. 09/26/2024 Patient examined this morning the bedside. Patient denies chest pain or pressure. He denies shortness of breath. Patient reports improvement in his speech today along with improvement in his right sided weakness. MRI completed revealing multiple punctate acute ischemic changes left basal ganglion, left frontal and parietal cortex, and subcortical white matter extending to the left watershed region. Blood pressure 175/84. Telemetry reveals sinus mechanism. 09/27/2024 Patient examined at the bedside. Patient continues to report improvement in his speech and his right sided weakness. He was able to take a shower today. He denies chest pain or pressure. Denies shortness of breath. Blood pressure this morning 153/81. Telemetry reveals sinus mechanism. PHYSICAL EXAM: VITAL SIGNS: Reviewed. GENERAL: Well-developed in no acute distress. HEENT: Head is normocephalic. Drooping of right nasolabial fold. Pupils are equal, round. Sclerae anicteric. Mucous membranes of the mouth are moist. Neck supple. No JVD or thyromegaly LUNGS: Respirations even and unlabored. Lungs essentially clear to auscultation bilaterally. HEART: Regular rate and rhythm. S1 and S2 heard. ABDOMEN: Soft. Nondistended. Nontender. EXTREMITIES: Right-sided weakness.. No clubbing or cyanosis. Peripheral pulses intact. No lower extremity edema NEUROLOGIC: Awake and alert. Oriented x 3. ASSESSMENT: Right-sided weakness with expressive aphasia, acute CVA New onset atrial fibrillation, currently maintaining sinus mechanism New onset cardiomyopathy, 30 to 35%, ischemic versus nonischemic Obstructive sleep apnea with CPAP use Hypertension Hyperlipidemia, LDL 168, total cholesterol 292 Hypertriglyceridemia, 675 Diabetes, uncontrolled, hemoglobin A1c 13.0 Morbid obesity: BMI 45.9 History of CVA/TIA, 15 years ago, "light one" per patient PLAN: Continue current cardiac medications Continue current dose of metoprolol, losartan, and Farxiga Patient needs to be anticoagulated due to new onset atrial fibrillation. Awaiting clearance from neurology. Continue to monitor telemetry and blood pressure Further recommendations pending patient course Nurse practitioner note has been reviewed by physician. Signing provider agrees with the documented findings, assessment, and plan of care documented by INTERN ARCHITECT as a scribe. Objective - Vital Signs Vital signs: Vital Signs Temp 98.9 F 09/27/24 07:50 Pulse 88 09/27/24 07:50 Resp 16 09/27/24 07:50 BP 153/81 09/27/24 07:50 Pulse Ox 95 09/27/24 07:50 FiO2 Intake & Output 09/26/24 09/27/24 09/27/24 18:59 06:59 18:59 Intake Total 540 240 500 Output Total 1500 1100 Balance -960 -860 500 Weight 145 kg 145 kg Intake: Oral 540 240 500 Output: Urine 1500 1100 Other: Voiding Method External Catheter Urinal - Labs CBC & Chem 7: 09/27/24 06:28 09/27/24 06:28 Labs: Abnormal Lab Results - Last 24 Hours (Table) 09/26/24 09/26/24 09/26/24 Range/Units 11:31 16:06 20:02 RBC (4.30-5.90) m/uL Sodium (137-145) mmol/L Chloride (98-107) mmol/L Glucose (74-99) mg/dL POC Glucose (mg/dL) 168 H 193 H 213 H (70-110) mg/dL 09/27/24 09/27/24 09/27/24 Range/Units 02:22 05:52 06:28 RBC 6.11 H (4.30-5.90) m/uL Sodium (137-145) mmol/L Chloride (98-107) mmol/L Glucose (74-99) mg/dL POC Glucose (mg/dL) 180 H 171 H (70-110) mg/dL 09/27/24 Range/Units 06:28 RBC (4.30-5.90) m/uL Sodium 134 L (137-145) mmol/L Chloride 95 L (98-107) mmol/L Glucose 168 H (74-99) mg/dL POC Glucose (mg/dL) (70-110) mg/dL
[2024-09-27 16:51] LABS: Glucose,Whole Blood 177 mg/dL (70-110)
--- NOTE | 2024-09-27 18:46 | P.PN ---
Subjective Progress Note Date: 09/27/24 Hospital course: Patient is a very pleasant 59-year-old male with a past medical history of CVA/TIA, hypertension, type II gls-byjflje-cjeswnupz diabetes mellitus, and hypothyroidism. He presented to the emergency department on 09/24/2024 with reports of right-sided weakness and aphasia. CT brain was negative for acute hemorrhage, hydrocephalus or mass effect. CTA head and neck revealing bilateral severe focal stenosis versus partial occlusion of mid SUPERVISING NURSE, decreased caliber of vessels in the left M1/M2 junction and M2 branches, bilateral severe focal steno sis versus partial occlusion of mid SUPERVISING NURSE and no significant carotid stenosis. EKG showing atrial fibrillation with RVR to 101 bpm. Chest x-ray was negative for acute cardiopulmonary process. Labs completed and reviewed. CBC unremarkable. Coagulation profile normal findings. BMP showing sodium 133, chloride of 94, and anion gap of 12 with mild prerenal azotemia with BUN of 21. Blood glucose elevated at 469. Troponin was 0.015. Urinalysis positive for protein, glucose, and ketones. Urine drug screen negative. Serum alcohol less than 10. Patient admitted under our services for acute ischemic CVA and new onset atrial fibrillation with consultation to neurology and cardiology. Repeat morning EKG showing normal sinus mechanism at 83 bpm. Echocardiogram completed showing an impaired EF of 30 to 35% with mild to moderate mitral regurgitation. Carotid Doppler showing no evidence of hemodynamically significant stenosis. Lipid profile showing triglycerides of 675, total cholesterol of 292, LDL of 168, VLDL of 135 and low HDL of 30.8. Hemoglobin A1c was 13.0%. MRI brain completed showing multiple punctate acute ischemic changes of left basal ganglia on, left frontal and parietal cortex, subcortical white matter extending to the left watershed region with additional chronic appearing punctate subcortical and deep white matter ischemic changes present bilaterally. Physical exam: Patient seen and fully evaluated at bedside this morning. Stroke deficits continue to show improvement with speech and right upper and lower extremity wea kness. Vital signs reviewed and stable. General: Nontoxic, no distress and appears stated age. Derm: Skin warm and dry, normal coloration for ethnicity. Head: Atraumatic, normocephalic and symmetric. Eyes: EOM's intact, no lid lag, and anicteric sclera Mouth: no lip lesions, mucus membranes moist Cardiovascular: regular rate and rhythm with normal S1S2, no murmur, positive posterior tibial pulses bilaterally, and cap refill < 2 seconds. Lungs: Respirations even, regular, and unlabored on room air. Lungs CTA bilaterally, no rhonchi, no rales, no wheezing, and no accessory muscle usage. Abdominal: soft, nontender to palpation, no guarding, no appreciable organomegaly Ext: No gross muscle atrophy, no edema, no contractures. Right upper and lower extremity strength currently 3 out of 5 when compared to left. Patient now able to open and close right hand and make a fist again, continues to have right arm drop but improving. Sensation decreased but intact upon assessment. Neuro: Expressive aphasia with garbled speech but continues to improve, right- sided facial droop Psych: Alert and oriented to person, place, time, and situation. Appropriate and pleasant affect. Assessment and Plan of Care: Acute ischemic stroke with right sided weakness and moderate aphasia Hyperlipidemia Hypertensive urgency -Continue NIH assessment with neurochecks every 4 hours. -MRI brain completed showing multiple punctate acute ischemic changes of left basal ganglia on, left frontal and parietal cortex, subcortical white matter extending to the left watershed region with additional chronic appearing puncta te subcortical and deep white matter ischemic changes present bilaterally. -MRA showing no evidence for focal stenosis, occlusion or aneurysm with CT abnormality favored to represent prominence of the posterior wall of the sella. -Neurology following, discussed in detail with Dr. Ramirez. -Cardiac monitoring -Fall precautions -Carotid Doppler showing no evidence of hemodynamically significant stenosis. -PT OT recommending inpatient rehab -Patient has been accepted to inpatient rehab, pending insurance approval. -Continue aspirin 81 mg daily, atorvastatin 80 mg nightly, Brilinta 90 mg twice daily, and fenofibrate 160 mg daily. -Continue losartan 25 mg daily and metoprolol 25 mg twice daily. -Lipid profile showing triglycerides of 675, total cholesterol of 292, LDL of 168, VLDL of 135 and low HDL of 30.8. Hemoglobin A1c was 13.0%. New onset atrial fibrillation with RVR Cardiomyopathy, newly diagnosed unclear if ischemic vs nonischemic -EKG showed atrial fibrillation with a rate of 101, no ST-T changes. Repeat EKG showing normal sinus mechanism at 83 bpm. -Echocardiogram completed showing an impaired EF of 30 to 35% with mild to moderate mitral regurgitation -Continue metoprolol tartarate 25 mg twice daily, atorvastatin 80 mg nightly, fenofibrate 160 mg daily, losartan 25 mg daily, and metoprolol 25 mg twice daily. -[id number] score 4. Will defer anticoagulation pending clearance by neurology. At this time continue Lovenox 40 mg daily for DVT prophylaxis. -Cardiology following, discussed plan of care with cardiac FUEL DISTRIBUTION SYSTEM OPERATOR. Diabetes mellitus with Hyperglycemia -Hemoglobin A1c 13%.. Had long discussion with patient about hemoglobin A1c of 13%. -Continue glycemic protocol with NovoLog sliding scale. Glucose levels remain elevated currently 304. Order placed for Levemir 15 units daily in addition to sliding scale. -Would recommend discharge on insulin. Informed patient that he will need to be discharged on insulin and patient adamantly against it at this time. Patient reports "we can talk about this another time, I am not discussing this right now". Hypothyroidism -Continue levothyroxine 137 mcg daily. Obstructive sleep apnea -Continue CPAP nightly and while napping. Data and imaging reviewed: -MRA showing no evidence for focal stenosis, occlusion or aneurysm with CT abnormality favored to represent prominence of the posterior wall of the sella. -Labs reviewed. CBC unremarkable. BMP showing sodium 134, chloride 95 and blood glucose of 168 this morning. Magnesium 1.8. Liver profile unremarkable. -Vital signs reviewed. Blood pressure 153/81, heart rate 88, respiratory rate 16, temp 98.9 F, and SpO2 of 95% on room air. CODE STATUS: Full code DVT prophylaxis: Lovenox Anticipated discharge date: Pending medical course Anticipated discharge place: Pending clinical course Patient was seen independently by Nurse Pracitioner. This document was prepared using [employer] dictation software. Please allow for errors in rn supplemental, while rare they do occur. Zack Harley NP rendered care for this patient independently, reviewed the findings and plan as documented in the note above and agree with plan. I did not physically speak with or examine the patient on this date. Objective - Vital Signs Vital signs: Vital Signs Temp 98.2 F 09/27/24 00:00 Pulse 71 09/27/24 04:00 Resp 16 09/27/24 04:00 BP 124/71 09/27/24 00:00 Pulse Ox 95 09/27/24 04:00 FiO2 Intake & Output 09/26/24 09/27/24 09/27/24 18:59 06:59 18:59 Intake Total 540 240 Output Total 1500 1100 Balance -960 -860 Weight 145 kg 145 kg Intake: Oral 540 240 Output: Urine 1500 1100 Other: Voiding Method External Catheter Urinal - Labs CBC & Chem 7: 09/27/24 06:28 09/27/24 06:28 Labs: Abnormal Lab Results - Last 24 Hours (Table) 09/26/24 09/26/24 09/26/24 Range/Units 11:31 16:06 20:02 RBC (4.30-5.90) m/uL Sodium (137-145) mmol/L Chloride (98-107) mmol/L Glucose (74-99) mg/dL POC Glucose (mg/dL) 168 H 193 H 213 H (70-110) mg/dL 09/27/24 09/27/24 09/27/24 Range/Units 02:22 05:52 06:28 RBC 6.11 H (4.30-5.90) m/uL Sodium (137-145) mmol/L Chloride (98-107) mmol/L Glucose (74-99) mg/dL POC Glucose (mg/dL) 180 H 171 H (70-110) mg/dL 09/27/24 Range/Units 06:28 RBC (4.30-5.90) m/uL Sodium 134 L (137-145) mmol/L Chloride 95 L (98-107) mmol/L Glucose 168 H (74-99) mg/dL POC Glucose (mg/dL) (70-110) mg/dL
[2024-09-27 20:26] LABS: Glucose,Whole Blood 229 mg/dL (70-110)
[2024-09-28 06:21] LABS: Glucose,Whole Blood 206 mg/dL (70-110)
[2024-09-28 08:56] LABS: Glucose,Whole Blood 353 mg/dL (70-110)
[2024-09-28] MEDS: INSULIN GLARGINE (LANTUS) 100 UNIT/ML SYR SQ ONE (08:57)
[2024-09-28] MEDS: APIXABAN 5 MG TAB PO SCH (09:28)
[2024-09-28] MEDS: LOSARTAN 25 MG TAB PO STA (09:28)
[2024-09-28 11:10] LABS: Glucose,Whole Blood 203 mg/dL (70-110)
--- NOTE | 2024-09-28 11:47 | P.PN ---
Subjective Progress Note Date: 09/27/24 Patient was seen for a follow-up. Patient's was also present by the bedside. Patient states that he got into the shower. He is getting better as compared to yesterday. Speech is much improved. Also spoke to the speech therapist, who agreed. Objective - Vital Signs Vital signs: Vital Signs Temp 97.6 F 09/27/24 13:57 Pulse 86 09/27/24 13:57 Resp 16 09/27/24 13:57 BP 183/92 09/27/24 13:57 Pulse Ox 95 09/27/24 13:57 FiO2 Intake & Output 09/26/24 09/27/24 09/27/24 18:59 06:59 18:59 Intake Total 540 240 618 Output Total 1500 1100 Balance -960 -860 618 Weight 145 kg 145 kg Intake: Oral 540 240 618 Output: Urine 1500 1100 Other: Voiding Method External Catheter Urinal Urinal - Exam Patient is a late middle aged male, in no acute distress. Patient is fully alert and awake, keenly interacting with his family members. Patient's speech has remarkably improved. There is no dysarthria. He has mild to moderate expressive aphasia. Comprehension is fully intact. Patient able to name all objects presented including earlobes, knuckles, button, buttonhole etc. Patient can repeat very well. He can read about 95% with accuracy. Some paraphasic errors. Patient's states that he is still stuck up with conversation at times. Patient is quite fluent, but still has some hesitancy at times. Patient able to tell the month and his age. On cranial nerve examination, pupils are equal, round and reacting to light, visual orozco are full on confrontation, with no neglect on double simultaneous stimulation. Extraocular muscles are intact with no nystagmus. Patient has very slight flattening of the nasolabial fold. Otherwise appears normal on objective testing. His tongue protrudes to the midline. Palatal elevation and sensation normal, hearing and, facial sensation normal. On muscle strength testing, there is severe right pronator drift. The arm does not completely hit the bed. In the right lower limb, patient slightly moves the leg up and down, but very minimal drift. The strength is normal in the left arm and left leg. On the right side, deltoid 4 4-, biceps 5, triceps 5, supervisor poultry hatchery 4+, hip flexion 4+5-, knee extension 5, ankle dorsiflexion 2. Sensory to touch is equal, with no neglect on double simultaneous stimulation. Cerebellar function showed ataxia for leomtl-hs-lwbe testing only on the right side. No ataxia in the lower limbs, although it was slightly difficult for him to do with the right leg. Tone and bulk of muscles normal. Gait deferred.. On general examination, there is no carotid bruit or murmur, S1-S2 audible. Chest is clear on consultation. Abdomen is soft nontender. No organomegaly, bowel sounds present. - Labs CBC & Chem 7: 09/27/24 06:28 09/27/24 06:28 Labs: Abnormal Lab Results - Last 24 Hours (Table) 09/26/24 09/26/24 09/27/24 Range/Units 16:06 20:02 02:22 RBC (4.30-5.90) m/uL Sodium (137-145) mmol/L Chloride (98-107) mmol/L Glucose (74-99) mg/dL POC Glucose (mg/dL) 193 H 213 H 180 H (70-110) mg/dL 09/27/24 09/27/24 09/27/24 Range/Units 05:52 06:28 06:28 RBC 6.11 H (4.30-5.90) m/uL Sodium 134 L (137-145) mmol/L Chloride 95 L (98-107) mmol/L Glucose 168 H (74-99) mg/dL POC Glucose (mg/dL) 171 H (70-110) mg/dL 09/27/24 Range/Units 11:57 RBC (4.30-5.90) m/uL Sodium (137-145) mmol/L Chloride (98-107) mmol/L Glucose (74-99) mg/dL POC Glucose (mg/dL) 168 H (70-110) mg/dL Assessment and Plan Assessment: * Acute ischemic stroke, with expressive aphasia and right hemiparesis. Patient has remarkably improved today. Current NIH stroke scale is 6 (yesterday NIHSS was 11 on my examination). 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 Likely asymptomatic, as it is on the ipsilateral side of the symptoms. * Intracranial atherosclerotic disease. * New onset atrial fibrillation with rapid ventricular rate * History of CVA/TIA 15 years ago, "light one" per patient. * Congestive heart failure * Hypertension * Diabetes, poorly controlled * Hyperlipidemia * Noncompliance with medications * Obesity * Obstructive sleep apnea * Ex tobacco use Plan: * Patient is showing further signs of clinical improvement. His speech is much improved. His right arm and right ankle still appears very weak, although slightly better. * MRI of the brain without contrast, revealed multiple punctate acute ischemic changes left basal ganglionic, the left frontal and parietal cortex and subcortical white matter extending to the left watershed region. There are additional chronic appearing punctate subcortical and deep white matter ischemic changes present bilaterally. I personally reviewed MRI agree with the findings. * 2-D echo revealed impaired LV systolic function with EF between 30 to 35%. Mild left ventricular dilation. Moderately reduced global left ventricular systolic function. Mild left atrial dilation. Normal right atrial size. Negative agitated saline bubble study for vlrad-sh-xerk shunt. No valvular abnormalities. 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 MRI of the brain is recommended for further evaluation. There is scattered areas of irregularity in the middle cerebral arteries and posterior cerebral arteries and the possibility of intracranial atheromatous disease should be considered. * Discussed with Dr. Guerrero, recommended no intervention at this time. Recommended follow-up in his office outpatient. * MRA of the brain revealed no evidence for focal stenosis, occlusion or aneurysm. CT abnormality is favored to represent prominence of the posterior wall of the sella.. I personally reviewed MRI agree with the findings. Discussed results with patient and his . No aneurysm. . * Fasting a.m. lipid panel with cholesterol 292, LDL 168, HDL 30 and triglycerides 675. Patient started on Lipitor 80 mg daily. * Hemoglobin A1c 13.0, indicating poorly controlled diabetes. Patient started on Farxiga * Permissive hypertension for next 24 hours. From morning, may start gradual controlling of the blood pressure. * Patient has new onset atrial fibrillation. Patient to start Eliquis 5 mg twice daily in the morning. Patient will receive last dose of Brilinta tonight. Continue aspirin to 81 mg daily. Discussed with cardiology team. * Neuro checks every 2 hours. * Telemetry monitoring rule out any arrhythmia * PT, OT, speech therapy * DVT prophylaxis: Lovenox 40 mg subcu daily. * Discussed with family members in detail.
--- NOTE | 2024-09-28 13:16 | P.PN ---
Subjective HISTORY OF PRESENT ILLNESS: This is a 59-year-old male with a past medical history significant for obstructive sleep apnea, obesity, hypertension, diabetes, and CVA/TIA. Patient does not follow with a japanese tutor. We have been asked to see the patient in consultation for atrial fibrillation. Patient examined at the bedside in the emergency room. Patient presented to the hospital for chief complaint of right- sided weakness and expressive aphasia. The patient denies any chest pain or pressure. He denies any shortness of breath. He does report having palpitations. The patient was found to be in atrial fibrillation. He denies any known history of atrial fibrillation. Bedside telemetry reveals sinus mechanism with a heart rate in the 80s. Patient continues to report right-sided weakness at the time of examination. He states his speech has improved but is not back to his baseline yet. DIAGNOSTICS: - EKG reveals atrial fibrillation. Repeat EKG reveals sinus mechanism. - Chest xray negative for acute process - Laboratory data: WBC 5.7. Hemoglobin 16.0. Platelet count 220. Sodium 133. Potassium 4.6. BUN 21. Creatinine 0.82. Troponin negative x 1. TSH 3.070. - Current home cardiac medications include none 09/25/2024 Patient examined this morning at the bedside. Patient denies chest pain or pressure. Denies SOB. He continues to have expressive aphasia although slightly improved today. He reports worsening right sided weakness. He is only able to lift his right leg off the bed about 2 inches. Bedside telemetry reveals sinus mechanism. Echocardiogram completed revealing ejection fraction 30 to 35% with global reduced left ventricular systolic function, negative bubble study, intra- atrial septum aneurysm, mild to moderate MR, trace AR, trace TR. 09/26/2024 Patient examined this morning the bedside. Patient denies chest pain or pressure. He denies shortness of breath. Patient reports improvement in his speech today along with improvement in his right sided weakness. MRI completed revealing multiple punctate acute ischemic changes left basal ganglion, left frontal and parietal cortex, and subcortical white matter extending to the left watershed region. Blood pressure 175/84. Telemetry reveals sinus mechanism. 09/27/2024 Patient examined at the bedside. Patient continues to report improvement in his speech and his right sided weakness. He was able to take a shower today. He denies chest pain or pressure. Denies shortness of breath. Blood pressure this morning 153/81. Telemetry reveals sinus mechanism. 09/28/2024 Patient examined this morning. Patient is sitting up on the side of the bed. Patient currently denies any chest pain or pressure. He denies shortness of breath. He states that his speech is back to normal. He also reports improvement in his right-sided weakness compared to yesterday. Blood pressure this morning 181/97. PHYSICAL EXAM: VITAL SIGNS: Reviewed. GENERAL: Well-developed in no acute distress. HEENT: Head is normocephalic. Drooping of right nasolabial fold. Pupils are equal, round. Sclerae anicteric. Mucous membranes of the mouth are moist. Neck supple. No JVD or thyromegaly LUNGS: Respirations even and unlabored. Lungs essentially clear to auscultation bilaterally. HEART: Regular rate and rhythm. S1 and S2 heard. ABDOMEN: Soft. Nondistended. Nontender. EXTREMITIES: Right-sided weakness.. No clubbing or cyanosis. Peripheral pulses intact. No lower extremity edema NEUROLOGIC: Awake and alert. Oriented x 3. ASSESSMENT: Right-sided weakness with expressive aphasia, acute CVA New onset atrial fibrillation, currently maintaining sinus mechanism New onset cardiomyopathy, 30 to 35%, ischemic versus nonischemic Obstructive sleep apnea with CPAP use Hypertension Hyperlipidemia, LDL 168, total cholesterol 292 Hypertriglyceridemia, 675 Diabetes, uncontrolled, hemoglobin A1c 13.0 Morbid obesity: BMI 45.9 History of CVA/TIA, 15 years ago, "light one" per patient PLAN: Continue current cardiac medications Continue current dose of metoprolol and Farxiga Case discussed yesterday with neurology who states patient may be started on El iquis this morning 5 mg twice a day. Continue aspirin. Discontinue Brilinta Increase losartan to 50 mg daily for optimal blood pressure control. Given additional dose of 25 mg this morning. Continue to monitor telemetry and blood pressure Further recommendations pending patient course Nurse practitioner note has been reviewed by physician. Signing provider agrees with the documented findings, assessment, and plan of care documented by VICE PRESIDENT AND PORTFOLIO MANAGER as a scribe. Objective - Vital Signs Vital signs: Vital Signs Temp 97.8 F 09/28/24 11:10 Pulse 72 09/28/24 11:10 Resp 17 09/28/24 11:10 BP 162/82 09/28/24 11:10 Pulse Ox 96 09/28/24 11:10 FiO2 Intake & Output 02/21/25 02/22/25 02/22/25 18:59 06:59 18:59 Intake Total 968 884 Output Total 700 0 750 Balance 268 134 Weight 141 kg Intake: IV 10 Invasive Line 1 10 Oral 968 874 Output: Urine 700 2049 750 Other: Voiding Method Urinal Urinal Urinal # Voids 1 - Labs CBC & Chem 7: 09/27/24 06:28 09/27/24 06:28 Labs: Abnormal Lab Results - Last 24 Hours (Table) 09/27/24 09/27/24 09/28/24 Range/Units 16:49 20:19 06:06 POC Glucose (mg/dL) 177 H 229 H 206 H (70-110) mg/dL 09/28/24 09/28/24 Range/Units 08:55 11:04 POC Glucose (mg/dL) 353 H 203 H (70-110) mg/dL
[2024-09-28 16:17] LABS: Glucose,Whole Blood 165 mg/dL (70-110)
--- NOTE | 2024-09-28 18:12 | P.PN ---
Subjective Progress Note Date: 09/28/24 Hospital course: Patient is a very pleasant 59-year-old male with a past medical history of CVA/TIA, hypertension, type II aij-hduwhed-eskzrobrg diabetes mellitus, and hypothyroidism. He presented to the emergency department on 09/24/2024 with reports of right-sided weakness and aphasia. CT brain was negative for acute hemorrhage, hydrocephalus or mass effect. CTA head and neck revealing bilateral severe focal stenosis versus partial occlusion of mid DICE MANAGER, decreased caliber of vessels in the left M1/M2 junction and M2 branches, bilateral severe focal steno sis versus partial occlusion of mid DICE MANAGER and no significant carotid stenosis. EKG showing atrial fibrillation with RVR to 101 bpm. Chest x-ray was negative for acute cardiopulmonary process. Labs completed and reviewed. CBC unremarkable. Coagulation profile normal findings. BMP showing sodium 133, chloride of 94, and anion gap of 12 with mild prerenal azotemia with BUN of 21. Blood glucose elevated at 469. Troponin was 0.015. Urinalysis positive for protein, glucose, and ketones. Urine drug screen negative. Serum alcohol less than 10. Patient admitted under our services for acute ischemic CVA and new onset atrial fibrillation with consultation to neurology and cardiology. Repeat morning EKG showing normal sinus mechanism at 83 bpm. Echocardiogram completed showing an impaired EF of 30 to 35% with mild to moderate mitral regurgitation. Carotid Doppler showing no evidence of hemodynamically significant stenosis. Lipid profile showing triglycerides of 675, total cholesterol of 292, LDL of 168, VLDL of 135 and low HDL of 30.8. Hemoglobin A1c was 13.0%. MRI brain completed showing multiple punctate acute ischemic changes of left basal ganglia on, left frontal and parietal cortex, subcortical white matter extending to the left watershed region with additional chronic appearing punctate subcortical and deep white matter ischemic changes present bilaterally. MRA showing no evidence for focal stenosis, occlusion or aneurysm with CT abnormality favored to represent prominence of the posterior wall of the sella. Physical exam: Patient seen and fully evaluated at bedside this morning. Stroke deficits continue to show improvement with speech and right upper and lower extremity weakness. Patient was getting ready to work with physical therapy at this time. He denies having any complaints or needs at this time. Patient and son at bedside visiting. All questions answered. Patient awaiting insurance authorization for placement in inpatient rehab. Vital signs reviewed and stable. General: Nontoxic, no distress and appears stated age. Derm: Skin warm and dry, normal coloration for ethnicity. Head: Atraumatic, normocephalic and symmetric. Eyes: EOM's intact, no lid lag, and anicteric sclera Mouth: no lip lesions, mucus membranes moist Cardiovascular: regular rate and rhythm with normal S1S2, no murmur, positive posterior tibial pulses bilaterally, and cap refill < 2 seconds. Lungs: Respirations even, regular, and unlabored on room air. Lungs CTA bilaterally, no rhonchi, no rales, no wheezing, and no accessory muscle usage. Abdominal: soft, nontender to palpation, no guarding, no appreciable organomeg tessa Ext: No gross muscle atrophy, no edema, no contractures. Right upper and lower extremity strength currently 3 out of 5 when compared to left. Patient now able to open and close right hand and make a fist again, continues to have right arm drop but improving. Sensation decreased but intact upon assessment. Neuro: Expressive aphasia with garbled speech but continues to improve, right- sided facial droop Psych: Alert and oriented to person, place, time, and situation. Appropriate and pleasant affect. Assessment and Plan of Care: Acute ischemic stroke with right sided weakness and moderate aphasia Hyperlipidemia Hypertensive urgency -Continue neurochecks every 4 hours and maintain fall precautions. -Neurology following, reviewed documentation in chart -PT OT following and recommending inpatient rehab -Patient has been accepted to inpatient rehab, pending insurance approval. -Continue aspirin 81 mg daily, atorvastatin 80 mg nightly, Eliquis 5 mg twice daily, and fenofibrate 160 mg daily. -Continue losartan increased to 50 mg daily patient to continue with metoprolol 25 mg twice daily New onset atrial fibrillation with RVR Cardiomyopathy, newly diagnosed unclear if ischemic vs nonischemic -EKG showed atrial fibrillation with a rate of 101, no ST-T changes. Repeat EKG showing normal sinus mechanism at 83 bpm. -Echocardiogram completed showing an impaired EF of 30 to 35% with mild to moderate mitral regurgitation -Patient started on Eliquis this morning 5 mg twice daily and to continue metoprolol tartarate 25 mg twice daily, atorvastatin 80 mg nightly, fenofibrate 160 mg daily, and losartan 50 mg daily. -Cardiology following, discussed plan of care with cardiac RAGS LABORER. Diabetes mellitus with Hyperglycemia -Hemoglobin A1c 13%.. Had long discussion with patient about hemoglobin A1c of 13% recommendations for discharge on insulin. Patient still remains highly adamant against being discharged on insulin. -Continue glycemic protocol with NovoLog sliding scale. Glucose levels remain elevated currently 304. Order placed for Levemir 15 units daily in addition to sliding scale. Hypothyroidism -Continue levothyroxine 137 mcg daily. Obstructive sleep apnea -Continue CPAP nightly and while napping. Data and imaging reviewed: -Labs reviewed. CBC unremarkable. BMP showing sodium 134, chloride 95 and blood glucose of 168 this morning. Magnesium 1.8. Liver profile unremarkable. -Vital signs reviewed. Blood pressure 162/82, heart rate 72, respiratory rate 17, temp 97.8 F, and SpO2 of 96% on room air. CODE STATUS: Full code DVT prophylaxis: Eliquis Anticipated discharge date: Patient awaiting insurance authorization for discharge to inpatient rehab Anticipated discharge place: Inpatient rehab at [facility] Patient was seen independently by Nurse Pracitioner. This document was prepared using [employer] dictation software. Please allow for errors in operations support coordinator, while rare they do occur. Zack Harley NP rendered care for this patient independently, reviewed the findings and plan as documented in the note above and agree with plan. I did no t physically speak with or examine the patient on this date. Objective - Vital Signs Vital signs: Vital Signs Temp 97.8 F 09/28/24 08:50 Pulse 94 09/28/24 08:50 Resp 17 09/28/24 08:50 BP 181/97 09/28/24 08:50 Pulse Ox 95 09/28/24 08:50 FiO2 Intake & Output 09/27/24 09/28/24 09/28/24 18:59 06:59 18:59 Intake Total 968 410 Output Total 700 0 200 Balance 268 -0 210 Weight 141 kg Intake: IV 10 Invasive Line 1 10 Oral 968 400 Output: Urine 700 0 200 Other: Voiding Method Urinal Urinal # Voids 1 - Labs CBC & Chem 7: 09/27/24 06:28 09/27/24 06:28 Labs: Abnormal Lab Results - Last 24 Hours (Table) 09/27/24 09/27/24 09/27/24 Range/Units 11:57 16:49 20:19 POC Glucose (mg/dL) 168 H 177 H 229 H (70-110) mg/dL 09/28/24 09/28/24 Range/Units 06:06 08:55 POC Glucose (mg/dL) 206 H 353 H (70-110) mg/dL
[2024-09-28 20:41] LABS: Glucose,Whole Blood 225 mg/dL (70-110)
[2024-09-29 06:24] LABS: Glucose,Whole Blood 172 mg/dL (70-110)
[2024-09-29 06:51] LABS: HCT 51.3 % (39.0-53.0); HGB 16.6 gm/dL (13.0-17.5); MCH 26.6 pg (25.0-35.0); MCHC 32.4 g/dL (31.0-37.0); MCV 82.1 fL (80.0-100.0); Mean Platelet Volume 9.8; Platelet Count 289 k/uL (150-450); RBC 6.25 m/uL (4.30-5.90); RDW 13.7 % (11.5-15.5); WBC 7.8 k/uL (3.8-10.6)
[2024-09-29 07:17] LABS: ALT 30 U/L (4-49); AST 27 U/L (17-59); African American GFR (CKD) >90 (>60 ml/min/1.73 sqM); Albumin 4.3 g/dL (3.5-5.0); Alkaline Phosphatase 52 U/L (38-126); Anion Gap 15 mmol/L; Blood Urea Nitrogen 24 mg/dL (9-20); Calcium 9.4 mg/dL (8.4-10.2); Carbon Dioxide 26 mmol/L (22-30); Chloride 95 mmol/L (98-107); Glucose 173 mg/dL (74-99); Non-African American GFR(CKD) >90 (>60 ml/min/1.73 sqM); Potassium 4.5 mmol/L (3.5-5.1); Sodium 136 mmol/L (137-145); Total Bilirubin 0.8 mg/dL (0.2-1.3); Total Protein 7.3 g/dL (6.3-8.2)
[2024-09-29] MEDS: LOSARTAN 50 MG TAB PO SCH (08:38)
--- NOTE | 2024-09-29 11:05 | P.PN ---
Subjective Progress Note Date: 09/28/24 Patient was seen for a follow-up. Family members were not present today. Patient states he is doing much better. He has more control of his right upper limb. Able to wiggle his toes of the right foot better than yesterday. Denies headache, denies any new concerns. Objective - Vital Signs Vital signs: Vital Signs Temp 97.8 F 09/28/24 11:10 Pulse 72 09/28/24 11:10 Resp 17 09/28/24 11:10 BP 162/82 09/28/24 11:10 Pulse Ox 96 09/28/24 11:10 FiO2 Intake & Output 09/27/24 09/28/24 09/28/24 18:59 06:59 18:59 Intake Total 968 1144 Output Total 700 2050 1500 Balance 268 -2049 -356 Weight 141 kg Intake: IV 30 Invasive Line 1 20 Invasive Line 2 10 Oral 968 1114 Output: Urine 700 2049 1500 Other: Voiding Method Urinal Urinal Urinal # Voids 1 - Exam Patient is a late middle aged male, in no acute distress. Patient is fully alert and awake, keenly interacting with his family members. Patient's speech has remarkably improved. There is no dysarthria. He has mild to moderate expressive aphasia. Comprehension is fully intact. Patient able to name all objects presented including earlobes, knuckles, button, buttonhole etc. Patient can repeat very well. He can read about 95% with accuracy. Some paraphasic errors. Patient's states that he is still stuck up with conversation at times. Patient is quite fluent, but still has some hesitancy at times. Patient able to tell the month and his age. On cranial nerve examination, pupils are equal, round and reacting to light, visual orozco are full on confrontation, with no neglect on double simultaneous stimulation. Extraocular muscles are intact with no nystagmus. Patient has very slight flattening of the nasolabial fold. Otherwise appears normal on objective testing. His tongue protrudes to the midline. Palatal elevation and sensation normal, hearing and, facial sensation normal. On muscle strength testing, there is right pronator drift. The arm does not hit the bed. In the right lower limb, patient slightly moves the leg up and down, but very minimal drift. The strength is normal in the left arm and left leg. On the right side, deltoid 4, biceps 5, triceps 5, senior embedded software engineer 4+ 5-, hip flexion 4+5-, knee extension 5, ankle dorsiflexion 2+. Sensory to touch is equal, with no neglect on double simultaneous stimulation. Cerebellar function showed ataxia for [id number] testing only on the right side. No ataxia in the lower limbs, although it was slightly difficult for him to do with the right leg. Tone and bulk of muscles normal. Gait deferred.. On general examination, there is no carotid bruit or murmur, S1-S2 audible. Chest is clear on consultation. Abdomen is soft nontender. No organomegaly, bowel sounds present. - Labs CBC & Chem 7: 09/29/24 05:46 09/29/24 05:46 Labs: Abnormal Lab Results - Last 24 Hours (Table) 09/27/24 09/27/24 09/28/24 Range/Units 16:49 20:19 06:06 POC Glucose (mg/dL) 177 H 229 H 206 H (70-110) mg/dL 09/28/24 09/28/24 09/28/24 Range/Units 08:55 11:04 16:15 POC Glucose (mg/dL) 353 H 203 H 165 H (70-110) mg/dL Assessment and Plan Assessment: * Acute ischemic stroke, with expressive aphasia and right hemiparesis. Patient has remarkably improved today. 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 Likely asymptomatic, as it is on the ipsilateral side of the symptoms. MRA of the brain ruled out any aneurysm. * New onset atrial fibrillation with rapid ventricular rate * History of CVA/TIA 15 years ago, "light one" per patient. * Congestive heart failure * Hypertension * Diabetes, poorly controlled * Hyperlipidemia * Noncompliance with medications * Obesity * Obstructive sleep apnea * Ex tobacco use Plan: * Patient is showing further signs of clinical improvement. His speech is much improved. His right arm and right ankle are showing clinical improvement. * MRI of the brain without contrast, revealed multiple punctate acute ischemic changes left basal ganglionic, the left frontal and parietal cortex and subcortical white matter extending to the left watershed region. There are additional chronic appearing punctate subcortical and deep white matter ischemic changes present bilaterally. I personally reviewed MRI agree with the findings. * 2-D echo revealed impaired LV systolic function with EF between 30 to 35%. Mild left ventricular dilation. Moderately reduced global left ventricular systolic function. Mild left atrial dilation. Normal right atrial size. Negative agitated saline bubble study for [id number] shunt. No valvular abnormalities. 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 MRI of the brain is recommended for further evaluation. There is scattered areas of irregularity in the middle cerebral arteries and posterior cerebral arteries and the possibility of intracranial atheromatous disease should be considered. * Discussed with Dr. Guerrero, recommended no intervention at this time. Recommended follow-up in his office outpatient. * MRA of the brain revealed no evidence for focal stenosis, occlusion or aneurysm. CT abnormality is favored to represent prominence of the posterior wall of the sella.. I personally reviewed MRI agree with the findings. Discussed results with patient and his . No aneurysm. . * Fasting a.m. lipid panel with cholesterol 292, LDL 168, HDL 30 and triglycer ides 675. Patient started on Lipitor 80 mg daily. * Hemoglobin A1c 13.0, indicating poorly controlled diabetes. Patient started on Farxiga * Permissive hypertension for next 24 hours. From morning, may start gradual controlling of the blood pressure. * Patient has new onset atrial fibrillation. Patient is tolerating Eliquis 5 mg twice daily and aspirin very well. * Neuro checks every 2 hours. * Telemetry monitoring rule out any arrhythmia * PT, OT, speech therapy * DVT prophylaxis: Lovenox 40 mg subcu daily. * Discussed with family members in detail. * Patient is an excellent candidate for inpatient rehab.
[2024-09-29 12:04] LABS: Glucose,Whole Blood 184 mg/dL (70-110)
--- NOTE | 2024-09-29 12:23 | P.PN ---
Subjective HISTORY OF PRESENT ILLNESS: This is a 59-year-old male with a past medical history significant for obstructive sleep apnea, obesity, hypertension, diabetes, and CVA/TIA. Patient does not follow with a separator inserter. We have been asked to see the patient in consultation for atrial fibrillation. Patient examined at the bedside in the emergency room. Patient presented to the hospital for chief complaint of right- sided weakness and expressive aphasia. The patient denies any chest pain or pressure. He denies any shortness of breath. He does report having palpitations. The patient was found to be in atrial fibrillation. He denies any known history of atrial fibrillation. Bedside telemetry reveals sinus mechanism with a heart rate in the 80s. Patient continues to report right-sided weakness at the time of examination. He states his speech has improved but is not back to his baseline yet. DIAGNOSTICS: - EKG reveals atrial fibrillation. Repeat EKG reveals sinus mechanism. - Chest xray negative for acute process - Laboratory data: WBC 5.7. Hemoglobin 16.0. Platelet count 220. Sodium 133. Potassium 4.6. BUN 21. Creatinine 0.82. Troponin negative x 1. TSH 3.070. - Current home cardiac medications include none 09/25/2024 Patient examined this morning at the bedside. Patient denies chest pain or pressure. Denies SOB. He continues to have expressive aphasia although slightly improved today. He reports worsening right sided weakness. He is only able to lift his right leg off the bed about 2 inches. Bedside telemetry reveals sinus mechanism. Echocardiogram completed revealing ejection fraction 30 to 35% with global reduced left ventricular systolic function, negative bubble study, intra- atrial septum aneurysm, mild to moderate MR, trace AR, trace TR. 09/26/2024 Patient examined this morning the bedside. Patient denies chest pain or pressure. He denies shortness of breath. Patient reports improvement in his speech today along with improvement in his right sided weakness. MRI completed revealing multiple punctate acute ischemic changes left basal ganglion, left frontal and parietal cortex, and subcortical white matter extending to the left watershed region. Blood pressure 175/84. Telemetry reveals sinus mechanism. 09/27/2024 Patient examined at the bedside. Patient continues to report improvement in his speech and his right sided weakness. He was able to take a shower today. He denies chest pain or pressure. Denies shortness of breath. Blood pressure this morning 153/81. Telemetry reveals sinus mechanism. 09/28/2024 Patient examined this morning. Patient is sitting up on the side of the bed. Patient currently denies any chest pain or pressure. He denies shortness of breath. He states that his speech is back to normal. He also reports improvement in his right-sided weakness compared to yesterday. Blood pressure this morning 181/97. 09/29/2024 Patient examined this morning. Patient is sitting on the side of the bed. Patient denies any chest pain or pressure. He denies shortness of breath. He continues to report improvement in his speech and right-sided weakness. Blood pressures are significantly improved from admission. Telemetry reveals sinus mechanism. PHYSICAL EXAM: VITAL SIGNS: Reviewed. GENERAL: Well-developed in no acute distress. HEENT: Head is normocephalic. Pupils are equal, round. Sclerae anicteric. Mucous membranes of the mouth are moist. Neck supple. No JVD or thyromegaly LUNGS: Respirations even and unlabored. Lungs essentially clear to auscultation bilaterally. HEART: Regular rate and rhythm. S1 and S2 heard. ABDOMEN: Soft. Nondistended. Nontender. EXTREMITIES: Right-sided weakness., Improving. no clubbing or cyanosis. Peripheral pulses intact. No lower extremity edema NEUROLOGIC: Awake and alert. Oriented x 3. ASSESSMENT: Right-sided weakness with expressive aphasia, acute CVA New onset atrial fibrillation, currently maintaining sinus mechanism New onset cardiomyopathy, 30 to 35%, ischemic versus nonischemic Obstructive sleep apnea with CPAP use Hypertension Hyperlipidemia, LDL 168, total cholesterol 292 Hypertriglyceridemia, 675 Diabetes, uncontrolled, hemoglobin A1c 13.0 Morbid obesity: BMI 45.9 History of CVA/TIA, 15 years ago, "light one" per patient PLAN: Continue current cardiac medications Continue Eliquis 5 mg twice a day. Continue aspirin 81 mg daily per neurology Continue to monitor telemetry and blood pressure Reinforced importance of controlling diabetes and being compliant with insulin regimen. Patient verbalized understanding. Further recommendations pending patient course Nurse practitioner note has been reviewed by physician. Signing provider agrees with the documented findings, assessment, and plan of care documented by LICENSED VOCATIONAL NURSE as a scribe. Objective - Vital Signs Vital signs: Vital Signs Temp 98.4 F 09/29/24 11:30 Pulse 79 09/29/24 11:30 Resp 17 09/29/24 11:30 BP 138/92 09/29/24 11:30 Pulse Ox 95 09/29/24 12:21 FiO2 21 09/29/24 12:21 Intake & Output 09/28/24 09/29/24 09/29/24 18:59 06:59 18:59 Intake Total 1624 380 232 Output Total 1999 1400 500 Balance -376 -1020 -268 Weight 141 kg Intake: IV 30 20 10 Invasive Line 1 20 Invasive Line 2 10 20 10 Oral 1594 222 Blood Product 360 Output: Urine 1999 1400 500 Other: Voiding Method Urinal Urinal Urinal # Voids 1 1 - Labs CBC & Chem 7: 09/29/24 05:46 09/29/24 05:46 Labs: Abnormal Lab Results - Last 24 Hours (Table) 09/28/24 09/28/24 09/29/24 Range/Units 16:15 20:27 05:46 RBC 6.25 H (4.30-5.90) m/uL Sodium (137-145) mmol/L Chloride (98-107) mmol/L BUN (9-20) mg/dL Glucose (74-99) mg/dL POC Glucose (mg/dL) 165 H 225 H (70-110) mg/dL 09/29/24 09/29/24 09/29/24 Range/Units 05:46 06:13 12:02 RBC (4.30-5.90) m/uL Sodium 136 L (137-145) mmol/L Chloride 95 L (98-107) mmol/L BUN 24 H (9-20) mg/dL Glucose 173 H (74-99) mg/dL POC Glucose (mg/dL) 172 H 184 H (70-110) mg/dL
--- NOTE | 2024-09-29 16:35 | P.PN ---
Subjective Progress Note Date: 09/29/24 Hospital course: Patient is a very pleasant 59-year-old male with a past medical history of CVA/TIA, hypertension, type II [id number] diabetes mellitus, and hypothyroidism. He presented to the emergency department on 09/24/2024 with reports of right-sided weakness and aphasia. CT brain was negative for acute hemorrhage, hydrocephalus or mass effect. 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 EKG showing atrial fibrillation with RVR to 101 bpm. Chest x-ray was negative for acute cardiopulmonary process. Labs completed and reviewed. CBC unremarkable. Coagulation profile normal findings. BMP showing sodium 133, chloride of 94, and anion gap of 12 with mild prerenal azotemia with BUN of 21. Blood glucose elevated at 469. Troponin was 0.015. Urinalysis positive for protein, glucose, and ketones. Urine drug screen negative. Serum alcohol less than 10. Patient admitted under our services for acute ischemic CVA and new onset atrial fibrillation with consultation to neurology and cardiology. Repeat morning EKG showing normal sinus mechanism at 83 bpm. Echocardiogram completed showing an impaired EF of 30 to 35% with mild to moderate mitral regurgitation. Carotid Doppler showing no evidence of hemodynamically significant stenosis. Lipid profile showing triglycerides of 675, total cholesterol of 292, LDL of 168, VLDL of 135 and low HDL of 30.8. Hemoglobin A1c was 13.0%. MRI brain completed showing multiple punctate acute ischemic changes of left basal ganglia on, left frontal and parietal cortex, subcortical white matter extending to the left watershed region with additional chronic appearing punctate subcortical and deep white matter ischemic changes present bilaterally. MRA showing no evidence for focal stenosis, occlusion or aneurysm with CT abnormality favored to represent prominence of the posterior wall of the sella. Physical exam: Patient seen and fully evaluated at bedside this morning. Patient was visiting with . She reports he was complaining of some pain in his coccyx and does have a small red area of erythema so she put some cream on him. She denies having any breakdown of skin. Patient reporting he is able to curl his toes on his right foot today which she was not able to do yesterday. Vital signs reviewed and stable. General: Nontoxic, no distress and appears stated age. Derm: Skin warm and dry, normal coloration for ethnicity. Head: Atraumatic, normocephalic and symmetric. Eyes: EOM's intact, no lid lag, and anicteric sclera Mouth: no lip lesions, mucus membranes moist Cardiovascular: regular rate and rhythm with normal S1S2, no murmur, positive posterior tibial pulses bilaterally, and cap refill < 2 seconds. Lungs: Respirations even, regular, and unlabored on room air. Lungs CTA bilaterally, no rhonchi, no rales, no wheezing, and no accessory muscle usage. Abdominal: soft, nontender to palpation, no guarding, no appreciable organomegaly Ext: No gross muscle atrophy, no edema, no contractures. Right upper and lower extremity strength currently 3 out of 5 when compared to left. Patient now able to open and close right hand and make a fist again, continues to have right arm drop but improving. Sensation decreased but intact upon assessment. Neuro: Expressive aphasia with garbled speech but continues to improve, right- sided facial droop Psych: Alert and oriented to person, place, time, and situation. Appropriate and pleasant affect. Assessment and Plan of Care: Acute ischemic stroke with right sided weakness and moderate aphasia Hyperlipidemia Hypertensive urgency -Continue neurochecks every 4 hours and maintain fall precautions. -Neurology following, reviewed documentation in chart -PT OT following and recommending inpatient rehab -Patient has been accepted to inpatient rehab, pending insurance approval. -Continue aspirin 81 mg daily, atorvastatin 80 mg nightly, Eliquis 5 mg twice daily, and fenofibrate 160 mg daily. -Continue losartan increased to 50 mg daily patient to continue with metoprolol 25 mg twice daily New onset atrial fibrillation with RVR Cardiomyopathy, newly diagnosed unclear if ischemic vs nonischemic -EKG showed atrial fibrillation with a rate of 101, no ST-T changes. Repeat EKG showing normal sinus mechanism at 83 bpm. -Echocardiogram completed showing an impaired EF of 30 to 35% with mild to moderate mitral regurgitation -Patient started on Eliquis this morning 5 mg twice daily and to continue metoprolol tartarate 25 mg twice daily, atorvastatin 80 mg nightly, fenofibrate 160 mg daily, and losartan 50 mg daily. -Cardiology following, discussed plan of care with cardiac COST CONTROLLER. Diabetes mellitus with Hyperglycemia -Hemoglobin A1c 13%.. Had long discussion with patient about hemoglobin A1c of 13% recommendations for discharge on insulin. Patient still remains highly adamant against being discharged on insulin, patient's at bedside states he will take it. -Continue Levemir 15 units daily along with glycemic protocol with NovoLog sliding scale. Hypothyroidism -Continue levothyroxine 137 mcg daily. Obstructive sleep apnea -Continue CPAP nightly and while napping. Data and imaging reviewed: -Labs reviewed. CBC unremarkable. BMP showing sodium 136, chloride 95 and blood glucose of 173 this morning. Magnesium 2.0. Liver profile unremarkable. -Vital signs reviewed. Blood pressure 145/91, heart rate 103, respiratory rate 17, temp 98.7 F, and SpO2 of 95% on room air. CODE STATUS: Full code DVT prophylaxis: Eliquis Anticipated discharge date: Patient awaiting insurance authorization for discharge to inpatient rehab Anticipated discharge place: Inpatient rehab at [facility] Patient was seen independently by Nurse Pracitioner. This document was prepared using [employer] dictation software. Please allow for errors in paving block cutter, while rare they do occur. Zack Harley NP rendered care for this patient independently, reviewed the findings and plan as documented in the note above and agree with plan. I did not physically speak with or examine the patient on this date. Objective - Vital Signs Vital signs: Vital Signs Temp 98.7 F 09/29/24 08:35 Pulse 103 H 09/29/24 08:35 Resp 17 09/29/24 08:35 BP 145/91 09/29/24 08:35 Pulse Ox 95 09/29/24 08:35 FiO2 Intake & Output 09/28/24 09/29/24 09/29/24 18:59 06:59 18:59 Intake Total 1624 380 10 Output Total 1999 1400 Balance -376 -1020 10 Weight 141 kg Intake: IV 30 20 10 Invasive Line 1 20 Invasive Line 2 10 20 10 Oral 1594 Blood Product 360 Output: Urine 1999 1399 Other: Voiding Method Urinal Urinal # Voids 1 - Labs CBC & Chem 7: 09/29/24 05:46 09/29/24 05:46 Labs: Abnormal Lab Results - Last 24 Hours (Table) 09/28/24 09/28/24 09/28/24 Range/Units 11:04 16:15 20:27 RBC (4.30-5.90) m/uL Sodium (137-145) mmol/L Chloride (98-107) mmol/L BUN (9-20) mg/dL Glucose (74-99) mg/dL POC Glucose (mg/dL) 203 H 165 H 225 H (70-110) mg/dL 09/29/24 09/29/24 09/29/24 Range/Units 05:46 05:46 06:13 RBC 6.25 H (4.30-5.90) m/uL Sodium 136 L (137-145) mmol/L Chloride 95 L (98-107) mmol/L BUN 24 H (9-20) mg/dL Glucose 173 H (74-99) mg/dL POC Glucose (mg/dL) 172 H (70-110) mg/dL
[2024-09-29 17:02] LABS: Glucose,Whole Blood 217 mg/dL (70-110)
[2024-09-29 20:10] LABS: Glucose,Whole Blood 238 mg/dL (70-110)
--- NOTE | 2024-09-29 22:42 | P.PN ---
Subjective Progress Note Date: 09/29/24 Patient was seen for a follow-up. Family members were not present today. Patient states he is doing much better. He has more control of his right upper limb. Able to wiggle his toes of the right foot better than yesterday. Denies headache, denies any new concerns. Objective - Vital Signs Vital signs: Vital Signs Temp 97.6 F 09/29/24 15:56 Pulse 86 09/29/24 15:56 Resp 18 09/29/24 15:56 BP 135/84 09/29/24 15:56 Pulse Ox 93 L 09/29/24 15:56 FiO2 21 09/29/24 12:21 Intake & Output 09/28/24 09/29/24 09/29/24 18:59 06:59 18:59 Intake Total 1624 380 360 Output Total 1999 1400 500 Balance -376 -1020 -140 Weight 141 kg Intake: IV 30 20 20 Invasive Line 1 20 Invasive Line 2 10 20 20 Oral 1594 340 Blood Product 360 Output: Urine 1999 1400 500 Other: Voiding Method Urinal Urinal Urinal # Voids 1 1 - Exam Patient is a late middle aged male, in no acute distress. Patient is fully alert and awake, keenly interacting. Patient's speech has remarkably improved. There is no dysarthria. He has very minimal aphasia. Patient able to narrate about his family very easily, with no obvious difficulty. Sometimes he stops and halts. Comprehension is fully intact. Patient able to name all objects presented including earlobes, knuckles, button, buttonhole etc. Patient can repeat very well. He can read about 95% with accuracy. Patient able to tell the month and his age. On cranial nerve examination, pupils are equal, round and reacting to light, visual orozco are full on confrontation, with no neglect on double simultaneous stimulation. Extraocular muscles are intact with no nystagmus. Patient has very slight flattening of the nasolabial fold. Otherwise appears normal on objective testing. His tongue protrudes to the midline. Palatal elevation and sensation normal, hearing and, facial sensation normal. On muscle strength testing, there is right pronator drift. The arm does not hit the bed. In the right lower limb, patient slightly moves the leg up and down, but no drift. The strength is normal in the left arm and left leg. On the righ t side, deltoid 5-, biceps 5, triceps 5, ferry boat captain 4+ 5-, hip flexion 5-, knee extension 5, ankle dorsiflexion 4. Sensory to touch is equal, with no neglect on double simultaneous stimulation. Cerebellar function showed ataxia for [id number] testing only on the right side. Patient has ataxia for [id number] testing on the right as well. Tone and bulk of muscles normal. Gait deferred.. On general examination, there is no carotid bruit or murmur, S1-S2 audible. Chest is clear on consultation. Abdomen is soft nontender. No organomegaly, bowel sounds present. - Labs CBC & Chem 7: 09/29/24 05:46 09/29/24 05:46 Labs: Abnormal Lab Results - Last 24 Hours (Table) 09/28/24 09/29/24 09/29/24 Range/Units 20:27 05:46 05:46 RBC 6.25 H (4.30-5.90) m/uL Sodium 136 L (137-145) mmol/L Chloride 95 L (98-107) mmol/L BUN 24 H (9-20) mg/dL Glucose 173 H (74-99) mg/dL POC Glucose (mg/dL) 225 H (70-110) mg/dL 09/29/24 09/29/24 Range/Units 06:13 12:02 RBC (4.30-5.90) m/uL Sodium (137-145) mmol/L Chloride (98-107) mmol/L BUN (9-20) mg/dL Glucose (74-99) mg/dL POC Glucose (mg/dL) 172 H 184 H (70-110) mg/dL Assessment and Plan Assessment: * Acute ischemic stroke, with expressive aphasia and right hemiparesis. Patient has remarkably improved today. NIH stroke scale is 4-5. 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 Likely asymptomatic, as it is on the ipsilateral side of the symptoms. MRA of the brain ruled out any aneurysm. * New onset atrial fibrillation with rapid ventricular rate * History of CVA/TIA 15 years ago, "light one" per patient. * Congestive heart failure * Hypertension * Diabetes, poorly controlled * Hyperlipidemia * Noncompliance with medications * Obesity * Obstructive sleep apnea * Ex tobacco use Plan: * Patient is showing further signs of clinical improvement. His speech is much improved. His right arm and right ankle are showing clinical improvement. * MRI of the brain without contrast, revealed multiple punctate acute ischemic changes left basal ganglionic, the left frontal and parietal cortex and subcortical white matter extending to the left watershed region. There are additional chronic appearing punctate subcortical and deep white matter ischemic changes present bilaterally. I personally reviewed MRI agree with the findings. * 2-D echo revealed impaired LV systolic function with EF between 30 to 35%. Mild left ventricular dilation. Moderately reduced global left ventricular systolic function. Mild left atrial dilation. Normal right atrial size. Negative agitated saline bubble study for [id number] shunt. No valvular abnormalities. 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 MRI of the brain is recommended for further evaluation. There is scattered areas of irregularity in the middle cerebral arteries and posterior cerebral arteries and the possibility of intracranial atheromatous disease should be considered. * Discussed with Dr. Guerrero, recommended no intervention at this time. Recommended follow-up in his office outpatient. * MRA of the brain revealed no evidence for focal stenosis, occlusion or aneurysm. CT abnormality is favored to represent prominence of the posterior wall of the sella.. I personally reviewed MRI agree with the findings. Discussed results with patient and his . No aneurysm. . * Fasting a.m. lipid panel with cholesterol 292, LDL 168, HDL 30 and triglycerides 675. Patient started on Lipitor 80 mg daily. * Hemoglobin A1c 13.0, indicating poorly controlled diabetes. Patient started on Farxiga * Permissive hypertension for next 24 hours. From morning, may start gradual controlling of the blood pressure. * Patient has new onset atrial fibrillation. Patient is tolerating Eliquis 5 mg twice daily and aspirin very well. * Neuro checks every 2 hours. * Telemetry monitoring rule out any arrhythmia * PT, OT, speech therapy * DVT prophylaxis: Lovenox 40 mg subcu daily. * Discussed with family members in detail. * Patient is an excellent candidate for inpatient rehab. * Neurologically clear. Dr. Naif Mustafa to resume neurology service from the morning.
[2024-09-30 06:06] LABS: Glucose,Whole Blood 186 mg/dL (70-110)
--- NOTE | 2024-09-30 10:21 | P.PN ---
Subjective Progress Note Date: 09/30/24 Principal diagnosis: CVA Mr Telly Zaman is a right handed male who lives with , his mother in law and 2 sons in a story home with 2 small GENESIS. Prior to admission, patient was independent. History is per chart and his secondary to significant aphasia. Patient presented to [facility] for slurred speech and right sided weakness. He was last known well at and around 8-9 PM 09/23. Per records noticed that his gait was off and that he was "wobbly" and had weakness of his right hand, could not mine analyst the remote control of their television. He also reported to have slurred speech, right-sided facial droop, confusion. His checked his blood pressure and it was elevated at the [address] on admission showed no acute hemorrhage, hydrocephalus or mass effect, old left basal ganglia infarct seen. CT angiography of the head showed bilateral severe focal stenosis versus partial occlusion of the mid INSTRUMENTATION TECH, atretic/decreased caliber of vessels in the left M1/M2 junction and M2 branches, remaining vessels are intact. CT angiography of the neck with contrast showed no significant stenosis or dissection of the left and right ICA, common carotid arteries, and vertebral arteries. Chest x-ray showed no focal consolidation or acute cardiopulmonary process. EKG showed atrial. Fibrillation with a rate of 101, no ST-T changes. Labs on admission showed WBC 5.7, hemoglobin 16, platelet count 220, PT 10.4, INR 0.9, PTT 22.8, sodium 133, potassium 4.6, chloride 94, BUN 21, creatinine 0.82, glucose 469, AST 23, ALT 33, alk phos 56, creatinine kinase 109, troponin 0.0 15, albumin 4.4. Urinalysis showed trace protein, +4 glucose, +1 ketones. UDS negative. Patient started on Aspirin 325 mg p.o. daily, Lipitor 80 mg p.o. daily, labetalol 20 mg IVP, and 1 L normal saline 0.9% initiated in the ED. Neurology consulted, MRI brain ordered, pending. Note to have new onset Afib with RVR. PM&R consulted for rehab recommendations. Patient was seen by DIRECTOR OF ENTERPRISE STRATEGY cleared for regular diet thin liquids, pending PT/OT. He does answer yes/no, generally appropriate. He admits to right sided weakness; denies LUCAS, dizziness, CP, SOB, abdominal pain or numbness/tingling. His note he is weaker today than yesterday, unable to move right arm and not able to lift right leg as high. 09/30/24: Patient sitting at edge of bed with son Jewel present. He states he has had significant improvement over the weekend, able to speak and move his right side now. He does still feel that his right side is weak and uncoordinated. He denies headaches, dizziness, vision changes. Denies CP,SOB, and abdominal pain. He had a BM in last 24 hrs. He denies issues with urination. He denies numbness or tingling in face, arms or legs. Denies issues with swallowing. We discussed rehab options, patient is agreeable to explore IPR options outside of the area. Objective - Vital Signs Vital signs: Vital Signs Temp 98.4 F 09/29/24 21:00 Pulse 85 09/30/24 02:00 Resp 18 09/29/24 23:47 BP 160/66 09/29/24 23:47 Pulse Ox 93 L 09/29/24 23:47 FiO2 21 09/29/24 12:21 Intake & Output 09/29/24 09/30/24 09/30/24 18:59 06:59 18:59 Intake Total 360 242 180 Output Total 500 850 900 Balance -140 -068 -414 Intake: IV 20 20 Invasive Line 2 20 20 Oral 340 222 180 Output: Urine 500 850 900 Other: Voiding Method Urinal Urinal # Voids 1 1 - Exam Physical examination: General: non toxic, no distress, appears at stated age, morbidly obese sitting e dge of bed Head: atraumatic, normocephalic, symmetric Eyes: Symmetric, pupils equal Nose and ears atraumatic Mouth: mucus membranes moist, slight right facial droop Cardiovascular: No acute cardiac distress, laboratory monitor on Lungs: even and non labored respirations, no accessory muscle use Abdominal: soft, nondistended, rounded, nontender to palpation, no guarding Ext: traceLE edema Neuro: A& O x4. CN II-XI grossly with right facial droop, decreased shrug. Speech very mild dysarthria, appropriate processing speed MMT LUE- SABD/EF/EE/FABD/HG /5; RUE- SABD/EF/EE/FABD/HG 4/5 LLE-HF/KE/DF/EHL 5/5; RLE HF 4-/5, KE 4/5, DF 4-/5, EHL 4-/5 Reflexes 0/4 throughout Sensation light touch UE/LE appears intact. Derm: no unusual rashes/lesions, warm, ecchymosis to left arm, abrasion to right lateral arm Psych: Alert, cooperative, pleasant - Labs CBC & Chem 7: 09/29/24 05:46 09/29/24 05:46 Labs: Abnormal Lab Results - Last 24 Hours (Table) 09/29/24 09/29/24 09/29/24 Range/Units 12:02 17:01 20:08 POC Glucose (mg/dL) 184 H 217 H 238 H (70-110) mg/dL 09/30/24 Range/Units 06:04 POC Glucose (mg/dL) 186 H (70-110) mg/dL Assessment and Plan Assessment: # Right hemiparesis secondary to Acute ischemic stroke, with expressive aphasia -therapies appropriate -MRI brain reviewed #impaired gait and ADLs secondary to above #New onset atrial fibrillation with rapid ventricular rate-cardio #Hypertension-meds per OCT #Diabetes, poorly controlled #Noncompliance with medications #Obesity #history of tobacco use # Your medical dx and management Dispo: Discussed rehab options including IPR outside of the [facility] area with patient and his son. Patient is agreeable to referrals to alternate facilities as [facility] is unable to take medicaid pending. Spoke with admission team at [facility] and they are willing to accept patient, discussed with CM and patient, referral also sent to [facility]. Patient is willing and able to tolerated 3 hrs of therapy per day, 5-7 days of the week, he has good family support. Patient seen and examined in coodination with Dr Maradiaga.
[2024-09-30 10:59] VITALS: RESP 16
[2024-09-30 11:33] LABS: Glucose,Whole Blood 199 mg/dL (70-110)
--- NOTE | 2024-09-30 11:51 | P.DS ---
Providers Date of admission: 09/24/24 02:46 Expected date of discharge: 09/30/24 Attending physician: Maryana Diaz MD Consults: 09/24/24 02:44 Consult Physician Routine Consulting Provider: Eduardo Ramirez Consult Reason/Comments: cva Do you want consulting provider notified?: Yes 09/24/24 02:45 Consult Physician Routine Consulting Provider: Shellie Gray Consult Reason/Comments: afib Do you want consulting provider notified?: Yes 09/24/24 18:14 Consult Physician Routine Consulting Provider: Martin Carrasquillo Consult Reason/Comments: inpatient rehab, acute ischemic CVA with right sided and speech deficits Do you want consulting provider notified?: Yes Primary care physician: Stated None Hospital Course: Discharge Diagnosis: Acute ischemic stroke with right sided weakness and moderate aphasia. Patient to continue with daily aspirin 81 mg daily, atorvastatin 80 mg nightly, and Eliquis 5 mg twice daily. Patient discharged to [facility] inpatient rehab. Hyperlipidemia. Patient started on atorvastatin 80 mg nightly and fenofibrate 160 mg daily. Hypertensive urgency. Continue losartan increased to 50 mg daily patient to continue with metoprolol 25 mg twice daily New onset atrial fibrillation with RVR. Patient started on Eliquis 5 mg twice daily and metoprolol 25 mg twice daily. Cardiomyopathy, newly diagnosed unclear if ischemic vs nonischemic. Patient started on Eliquis this morning 5 mg twice daily and to continue metoprolol tartarate 25 mg twice daily, atorvastatin 80 mg nightly, fenofibrate 160 mg daily, and losartan 50 mg daily. Diabetes mellitus with Hyperglycemia. Hemoglobin A1c 13%. Continue Levemir 15 units daily along with glycemic protocol with NovoLog sliding scale. Hypothyroidism. Continue levothyroxine 137 mcg daily. Obstructive sleep apnea. Continue CPAP nightly and while napping. Hospital course: Patient is a very pleasant 59-year-old male with a past medical history of CVA/TIA, hypertension, type II [id number] diabetes mellitus, and hypothyroidism. He presented to the emergency department on 09/24/2024 with reports of right-sided weakness and aphasia. CT brain was negative for acute hemorrhage, hydrocephalus or mass effect. CTA head and neck revealing bilateral severe focal stenosis versus partial occlusion of mid METAL SOLDERER, decreased caliber of vessels in the left M1/M2 junction and M2 branches, bilateral severe focal stenosis versus partial occlusion of mid METAL SOLDERER and no significant carotid stenosis. EKG showing atrial fibrillation with RVR to 101 bpm. Chest x-ray was negative for acute cardiopulmonary process. Labs completed and reviewed. CBC unremarkable. Coagulation profile normal findings. BMP showing sodium 133, chloride of 94, and anion gap of 12 with mild prerenal azotemia with BUN of 21. Blood glucose elevated at 469. Troponin was 0.015. Urinalysis positive for protein, glucose, and ketones. Urine drug screen negative. Serum alcohol less than 10. Patient admitted under our services for acute ischemic CVA and new onset atrial fibrillation with consultation to neurology and cardiology. Repeat morning EKG showing normal sinus mechanism at 83 bpm. Echocardiogram completed showing an impaired EF of 30 to 35% with mild to moderate mitral regurgitation. Carotid Doppler showing no evidence of hemodynamically significant stenosis. Lipid profile showing triglycerides of 675, total cholesterol of 292, LDL of 168, VLDL of 135 and low HDL of 30.8. Hemoglobin A1c was 13.0%. MRI brain completed showing multiple punctate acute ischemic changes of left basal ganglia on, left frontal and parietal cortex, subcortical white matter extending to the left watershed region with additional chronic appearing punctate subcortical and deep white matter ischemic changes present bilaterally. MRA showing no evidence for focal stenosis, occlusion or aneurysm with CT abnormality favored to represent prominence of the posterior wall of the sella. Patient was started on aspirin 81 mg daily, atorvastatin 80 mg nightly, Eliquis 5 mg twice daily, fenofibrate 160 mg daily, losartan 50 mg daily, metoprolol 25 mg twice daily. He was cleared by cardiology and neurology for discharge. Patient is medically optimized and has been accepted to [facility] inpatient rehab. In addition to above medications patient to continue with Levemir 15 units daily and NovoLog sliding scale for hemoglobin A1c of 13%. Physical exam: Vital signs reviewed and stable. General: Nontoxic, no distress and appears stated age. Derm: Skin warm and dry, normal coloration for ethnicity. Head: Atraumatic, normocephalic and symmetric. Eyes: EOM's intact, no lid lag, and anicteric sclera Mouth: no lip lesions, mucus membranes moist Cardiovascular: regular rate and rhythm with normal S1S2, no murmur, positive posterior tibial pulses bilaterally, and cap refill < 2 seconds. Lungs: Respirations even, regular, and unlabored on room air. Lungs CTA bilaterally, no rhonchi, no rales, no wheezing, and no accessory muscle usage. Abdominal: soft, nontender to palpation, no guarding, no appreciable orga nomegaly Ext: No gross muscle atrophy, no edema, no contractures. Right upper and lower extremity strength currently 3 out of 5 when compared to left. Patient now able to open and close right hand and make a fist again, continues to have right arm drop but improving. Sensation decreased but intact upon assessment. Neuro: Expressive aphasia with garbled speech but continues to improve, right-sided facial droop Psych: Alert and oriented to person, place, time, and situation. Appropriate and pleasant affect. A total of 37 minutes of time were spent preparing this complex discharge summary. Pt was discharged on 09/30/2024 at 11:49 AM. Patient was seen independently by Nurse Practitioner. This document was prepared using [employer] dictation software. Please allow for errors in certified neurodiagnostic technologist while rare they do occur. Zack Harley NP rendered care for this patient independently, reviewed the findings and plan as documented in the note above. I did not physically speak with or examine the patient on this date. Patient Condition at Discharge: Stable Plan - Discharge Summary Discharge Rx Participant: No New Discharge Prescriptions: New Losartan [Cozaar] 50 mg PO DAILY tab Dapagliflozin Propanediol [Farxiga] 10 mg PO DAILY tab Fenofibrate [Lofibra] 160 mg PO DAILY tab Aspirin 81 mg PO DAILY tab Apixaban [Eliquis] 5 mg PO BID tab Insulin Glargine (Lantus) [Lantus Vial] 15 unit SQ DAILY@0700 each Atorvastatin [Lipitor] 80 mg PO HS tab Metoprolol Tartrate [Lopressor] 25 mg PO BID tab polyethylene glycoL 3350 [Miralax] 17 gm PO HS packet INSULIN ASPART (NovoLOG) [NovoLOG (formulary)] See Rx Instructions .ROUTE .COMPLEX each Continue Levothyroxine Sodium [Synthroid] 137 mcg PO DAILY Turmeric Root Extract [Turmeric Curcumin] 500 mg PO DAILY Multivitamins, Thera [Multivitamin (formulary)] 1 tab PO DAILY Cholecalciferol (Vitamin D3) [Vitamin D3 (3000 Iu)] 75 mcg PO DAILY Berberine Chloride [Berberine] 500 mg PO DAILY Nitric Oxide (Unknown Dose) 1 dose PO DAILY Discharge Medication List Levothyroxine Sodium [Synthroid] 137 mcg PO DAILY 01/04/16 [History] Berberine Chloride [Berberine] 500 mg PO DAILY 09/24/24 [History] Cholecalciferol (Vitamin D3) [Vitamin D3 (3000 Iu)] 75 mcg PO DAILY 09/24/24 [History] Multivitamins, Thera [Multivitamin (formulary)] 1 tab PO DAILY 09/24/24 [History] Nitric Oxide (Unknown Dose) 1 dose PO DAILY 09/24/24 [History] Turmeric Root Extract [Turmeric Curcumin] 500 mg PO DAILY 09/24/24 [History] Apixaban [Eliquis] 5 mg PO BID tab 09/30/24 [Rx] Aspirin 81 mg PO DAILY tab 09/30/24 [Rx] Atorvastatin [Lipitor] 80 mg PO HS tab 09/30/24 [Rx] Dapagliflozin Propanediol [Farxiga] 10 mg PO DAILY tab 09/30/24 [Rx] Fenofibrate [Lofibra] 160 mg PO DAILY tab 09/30/24 [Rx] INSULIN ASPART (NovoLOG) [NovoLOG (formulary)] See Rx Instructions .ROUTE .COMPLEX each 09/30/24 [Rx] Insulin Glargine (Lantus) [Lantus Vial] 15 unit SQ DAILY@0700 each 09/30/24 [Rx] Losartan [Cozaar] 50 mg PO DAILY tab 09/30/24 [Rx] Metoprolol Tartrate [Lopressor] 25 mg PO BID tab 09/30/24 [Rx] polyethylene glycoL 3350 [Miralax] 17 gm PO HS packet 09/30/24 [Rx] Follow up Appointment(s)/Referral(s): Shellie Gray MD [STAFF PHYSICIAN] - 2 Weeks [facility], [NON-STAFF] - 1 Week [facility] [NON-STAFF] - 1 Week Telly Christian DO [Doctor of Osteopathic Medicine] - 1-2 days Patient Instructions/Handouts: A-fib (Atrial Fibrillation) (DC), Type 2 Diabetes in Adults: New Diagnosis (IP), Ischemic Stroke (DC), Hypertension (DC) Activity/Diet/Wound Care/Special Instructions: Patient is medically optimized and cleared for discharge to [facility] inpatient rehab. Activity: As tolerated. Take breaks as needed. Diet: Heart healthy and carb consistent diet. Avoid salts, or foods with hidden salts such as canned or boxed foods and frozen dinners. Extra salt makes your heart work harder and traps the fluid in your body for longer. Special Instructions: Take all of your medications as directed and remember to keep all of your doctor's appointments and follow-up as needed. Thank you for allowing us to participate in your care, it was truly a pleasure having you for our patient!!! Discharge/Stand Alone Forms: Who Do I Call?, Community Resources, Help In The Home, Personal Car Rental Deliverer, Area PCPs Discharge Disposition: TRANSFER TO SHORT TERM HOSP
--- NOTE | 2024-09-30 12:31 | P.PN ---
Subjective Progress Note Date: 09/30/24 HISTORY OF PRESENT ILLNESS: This is a 59-year-old male with a past medical history significant for obst ructive sleep apnea, obesity, hypertension, diabetes, and CVA/TIA. Patient does not follow with a primary care sales representative. We have been asked to see the patient in consultation for atrial fibrillation. Patient examined at the bedside in the emergency room. Patient presented to the hospital for chief complaint of right- sided weakness and expressive aphasia. The patient denies any chest pain or pressure. He denies any shortness of breath. He does report having palpitations. The patient was found to be in atrial fibrillation. He denies any known history of atrial fibrillation. Bedside telemetry reveals sinus mechanism with a heart rate in the 80s. Patient continues to report right-sided weakness at the time of examination. He states his speech has improved but is not back to his baseline yet. DIAGNOSTICS: - EKG reveals atrial fibrillation. Repeat EKG reveals sinus mechanism. - Chest xray negative for acute process - Laboratory data: WBC 5.7. Hemoglobin 16.0. Platelet count 220. Sodium 133. Potassium 4.6. BUN 21. Creatinine 0.82. Troponin negative x 1. TSH 3.070. - Current home cardiac medications include none 09/25/2024 Patient examined this morning at the bedside. Patient denies chest pain or pressure. Denies SOB. He continues to have expressive aphasia although slightly improved today. He reports worsening right sided weakness. He is only able to lift his right leg off the bed about 2 inches. Bedside telemetry reveals sinus mechanism. Echocardiogram completed revealing ejection fraction 30 to 35% with global reduced left ventricular systolic function, negative bubble study, intra- atrial septum aneurysm, mild to moderate MR, trace AR, trace TR. 09/26/2024 Patient examined this morning the bedside. Patient denies chest pain or pressure. He denies shortness of breath. Patient reports improvement in his speech today along with improvement in his right sided weakness. MRI completed revealing multiple punctate acute ischemic changes left basal ganglion, left frontal and parietal cortex, and subcortical white matter extending to the left watershed region. Blood pressure 175/84. Telemetry reveals sinus mechanism. 09/27/2024 Patient examined at the bedside. Patient continues to report improvement in his speech and his right sided weakness. He was able to take a shower today. He denies chest pain or pressure. Denies shortness of breath. Blood pressure this morning 153/81. Telemetry reveals sinus mechanism. 09/28/2024 Patient examined this morning. Patient is sitting up on the side of the bed. Patient currently denies any chest pain or pressure. He denies shortness of breath. He states that his speech is back to normal. He also reports i mprovement in his right-sided weakness compared to yesterday. Blood pressure this morning 181/97. 09/29/2024 Patient examined this morning. Patient is sitting on the side of the bed. Patient denies any chest pain or pressure. He denies shortness of breath. He continues to report improvement in his speech and right-sided weakness. Blood pressures are significantly improved from admission. Telemetry reveals sinus mechanism. 09/30 Patient seen and examined. Patient states he still has some weakness on the right side but speech is improved and seems to be back to baseline. Blood pressure 160/66, heart rate 84, pulse ox 93% on room air. No repeat lab work today. He is expecting discharge today and complex case manager is looking at [facility] for inpatient rehab. PHYSICAL EXAM: VITAL SIGNS: Reviewed. GENERAL: Well-developed in no acute distress. HEENT: Head is normocephalic. Pupils are equal, round. Sclerae anicteric. Mucous membranes of the mouth are moist. Neck supple. No JVD or thyromegaly LUNGS: Respirations even and unlabored. Lungs essentially clear to auscultation bilaterally. HEART: Regular rate and rhythm. S1 and S2 heard. ABDOMEN: Soft. Nondistended. Nontender. EXTREMITIES: Right-sided weakness., Improving. no clubbing or cyanosis. Peripheral pulses intact. No lower extremity edema NEUROLOGIC: Awake and alert. Oriented x 3. ASSESSMENT: Right-sided weakness with expressive aphasia, acute CVA New onset atrial fibrillation, currently maintaining sinus mechanism New onset cardiomyopathy, 30 to 35%, ischemic versus nonischemic Obstructive sleep apnea with CPAP use Hypertension Hyperlipidemia, LDL 168, total cholesterol 292 Hypertriglyceridemia, 675 Diabetes, uncontrolled, hemoglobin A1c 13.0 Morbid obesity: BMI 45.9 History of CVA/TIA, 15 years ago, "light one" per patient PLAN: Continue current cardiac medications: Eliquis 5 mg twice daily, aspirin 81 mg daily-Per neurology, atorvastatin, Farxiga 10 mg daily, fenofibrate, losartan 50 mg daily, Lopressor 25 mg twice daily. Reinforced importance of controlling diabetes and being compliant with insulin regimen. Patient verbalized understanding. Patient is cleared for discharge from cardiology. He may follow-up with Dr. Gray in 2 weeks. Cardiology will sign off this case and follow on an as-needed basis. Please reconsult for any new concerns. Patient may follow-up in the office in one to 2 weeks. Nurse practitioner note has been reviewed by physician. Signing provider agrees with the documented findings, assessment, and plan of care documented by DIE REPAIR MACHINIST as a scribe. Objective - Vital Signs Vital signs: Vital Signs Temp 98.4 F 09/29/24 21:00 Pulse 85 09/30/24 02:00 Resp 18 09/29/24 23:47 BP 160/66 09/29/24 23:47 Pulse Ox 93 L 09/29/24 23:47 FiO2 21 09/29/24 12:21 Intake & Output 09/29/24 09/30/24 09/30/24 18:59 06:59 18:59 Intake Total 360 242 180 Output Total 500 850 900 Balance -140 -608 -720 Intake: IV 20 20 Invasive Line 2 20 20 Oral 340 222 180 Output: Urine 500 850 900 Other: Voiding Method Urinal Urinal # Voids 1 1 - Labs CBC & Chem 7: 09/29/24 05:46 09/29/24 05:46 Labs: Abnormal Lab Results - Last 24 Hours (Table) 09/29/24 09/29/24 09/29/24 Range/Units 12:02 17:01 20:08 POC Glucose (mg/dL) 184 H 217 H 238 H (70-110) mg/dL 09/30/24 Range/Units 06:04 POC Glucose (mg/dL) 186 H (70-110) mg/dL
[2024-09-30 14:16] VITALS: BP 165/90; PULSE 74; TEMP 97.5
== END 2024-09-30 13:59 | disposition short-term general hospital (02) | DRG 65 ==
LOC: EC 01:14 → 3SCARD 02:46 → 3NCARDOBS 09-25 10:11 → 3SCARD 09-25 12:53
PROVIDERS: ADMIT Internal Medicine; ATTEND Internal Medicine
DX: I63.81 Other cerebral infarction due to occlusion or stenosis of small artery (principal); G81.91 Hemiplegia, unspecified affecting right dominant side; I67.1 Cerebral aneurysm, nonruptured; I11.0 Hypertensive heart disease with heart failure; I42.9 Cardiomyopathy, unspecified; I16.0 Hypertensive urgency; I48.91 Unspecified atrial fibrillation; E11.65 Type 2 diabetes mellitus with hyperglycemia; E66.01 Morbid (severe) obesity due to excess calories; E03.9 Hypothyroidism, unspecified; I08.3 Combined rheumatic disorders of mitral, aortic and tricuspid valves; Z68.42 Body mass index [BMI] 45.0-49.9, adult; I50.9 Heart failure, unspecified; Z79.4 Long term (current) use of insulin; Z79.890 Hormone replacement therapy; E78.1 Pure hyperglyceridemia; F41.9 Anxiety disorder, unspecified; G47.33 Obstructive sleep apnea (adult) (pediatric); I25.2 Old myocardial infarction; Z79.01 Long term (current) use of anticoagulants; R29.706 NIHSS score 6; R29.711 NIHSS score 11; R47.01 Aphasia; I44.30 Unspecified atrioventricular block; I67.2 Cerebral atherosclerosis; R29.810 Facial weakness; R47.81 Slurred speech; Z11.52 Encounter for screening for COVID-19; Z79.82 Long term (current) use of aspirin; Z79.84 Long term (current) use of oral hypoglycemic drugs; Z79.899 Other long term (current) drug therapy; Z87.891 Personal history of nicotine dependence; Z91.148 Patient's other noncompliance with medication regimen for other reason; Z98.1 Arthrodesis status
CPT/HCPCS: 36415; 70450; 70496; 70498; 70544; 70551; 71045; 80053; 80061; 80306; 80320; 81003; 82550; 83036; 83721; 83735; 84443; 84484; 85025; 85027; 85610; 85730; 87635; 93005; 93306; 93880; 94760; 96361; 96372; 96374; 99291

== ENCOUNTER 2025-02-09 11:15 | Emergency (ER) | payer OTHER ==
[2025-02-09 11:22] VITALS: TEMP 97.7
--- NOTE | 2025-02-09 12:38 | ED ---
Back Pain HPI - General Chief Complaint: Back Pain/Injury Stated Complaint: Left side back pain Time Seen by Provider: 02/09/25 12:33 Source: patient, family, RN notes reviewed Limitations: no limitations - History of Present Illness Initial Comments: 59-year-old male presenting for left flank pain. States symptoms have been present for approximately 2 months however had been worsening over the past couple of weeks. States he has bilateral flank pain that radiates into the abdomen however is worse on the left side. Denies injury or trauma. Pain does not radiate to the lower extremities. No urinary symptoms or fevers. Denies nausea/vomiting. is at bedside who reports patient has not been himself lately and has been fatigued and sleeping often. Patient did see his PCP Dr. Aguilar where they discussed the back pain and he is supposed to schedule an MRI of the back. 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 Patient is on Eliquis and aspirin. No change in bowel habits. Patient does have history of hypertension, type 2 diabetes on insulin, atrial fibrillation. No loss of bowel or bladder control. No saddle anesthesia. Rates his pain at about a 3 right now. - Related Data Home Medications Medication Instructions Recorded Confirmed Levothyroxine Sodium [Synthroid] 137 mcg PO DAILY 01/04/16 09/24/24 Berberine Chloride [Berberine] 500 mg PO DAILY 09/24/24 09/24/24 Cholecalciferol (Vitamin D3) 75 mcg PO DAILY 09/24/24 09/24/24 [Vitamin D3 (3000 Iu)] Multivitamins, Thera [Multivitamin 1 tab PO DAILY 09/24/24 09/24/24 (formulary)] Nitric Oxide (Unknown Dose) 1 dose PO DAILY 09/24/24 09/24/24 Turmeric Root Extract [Turmeric 500 mg PO DAILY 09/24/24 09/24/24 Curcumin] Previous Rx's Medication Instructions Recorded Apixaban [Eliquis] 5 mg PO BID tab 09/30/24 Aspirin 81 mg PO DAILY tab 09/30/24 Atorvastatin [Lipitor] 80 mg PO HS tab 09/30/24 Dapagliflozin Propanediol [Farxiga] 10 mg PO DAILY tab 09/30/24 Fenofibrate [Lofibra] 160 mg PO DAILY tab 09/30/24 INSULIN ASPART (NovoLOG) [NovoLOG See Rx Instructions .ROUTE 09/30/24 (formulary)] .COMPLEX each Insulin Glargine (Lantus) [Lantus 15 unit SQ DAILY@0700 each 09/30/24 Vial] Losartan [Cozaar] 50 mg PO DAILY tab 09/30/24 Metoprolol Tartrate [Lopressor] 25 mg PO BID tab 09/30/24 polyethylene glycoL 3350 [Miralax] 17 gm PO HS packet 09/30/24 Amoxic-Pot Clav 875-125Mg 1 tab PO Q12HR #20 tab 02/09/25 [Augmentin 875-125] Allergies Allergy/AdvReac Type Severity Reaction Status Date / Time aspirin AdvReac Abdominal Verified 02/09/25 11:22 Pain Review of Systems ROS Statement: Those systems with pertinent positive or pertinent negative responses have been documented in the HPI. ROS Other: All systems not noted in ROS Statement are negative. Past Medical History Past Medical History: CVA/TIA, Diabetes Mellitus, Myocardial Infarction ([place]), Sleep Apnea/CPAP/BIPAP, Thyroid Disorder Additional Past Medical History / Comment(s): states possible tia and silent [place],uses bipap, Last Myocardial Infarction Date:: ?silent History of Any Multi-Drug Resistant Organisms: None Reported Past Surgical History: Back Surgery, Orthopedic Surgery Additional Past Surgical History / Comment(s): aundrea carpal tunnel, neck fusion, lower back surgery, laminectomy and discectomy Past Anesthesia/Blood Transfusion Reactions: No Reported Reaction Past Psychological History: Anxiety Smoking Status: Former smoker Past Alcohol Use History: Rare Past Drug Use History: None Reported - Past Family History Mother Family Medical History: No Reported History General Exam Limitations: no limitations General appearance: alert, in no apparent distress Head exam: Present: atraumatic, normocephalic, normal inspection Eye exam: Present: normal appearance, PERRL, EOMI. Absent: scleral icterus, conjunctival injection, periorbital swelling Respiratory exam: Present: normal lung sounds bilaterally. Absent: respiratory distress, wheezes, rales, rhonchi, stridor Cardiovascular Exam: Present: regular rate, normal rhythm, normal heart sounds. Absent: systolic murmur, diastolic murmur, rubs, gallop, clicks GI/Abdominal exam: Present: soft, normal bowel sounds. Absent: distended, tenderness, guarding, rebound, rigid Back exam: Present: normal inspection, full ROM. Absent: tenderness, CVA tenderness (R), CVA tenderness (L), muscle spasm, paraspinal tenderness Neurological exam: Present: alert, oriented X3 Psychiatric exam: Present: normal affect, normal mood Skin exam: Present: warm, dry, intact, normal color. Absent: rash Course Vital Signs 02/09/25 02/09/25 11:17 12:57 Temperature 97.7 F Pulse Rate 82 82 Respiratory 18 20 Rate Blood Pressure 178/111 150/86 O2 Sat by Pulse 95 97 Oximetry Medical Decision Making - Medical Decision Making Was pt. sent in by a medical professional or institution (, PA, MERCHANDISE COORDINATOR, urgent care, hospital, or prison...) When possible be specific @ -No Did you speak to anyone other than the patient for history (EMS, parent, family, police, friend...)? What history was obtained from this source @ - supplemented history at bedside Did you review nursing and triage notes (agree or disagree)? Why? @ -I reviewed and agree with nursing and triage notes Were old charts reviewed (outside hosp., previous admission, EMS record, old EKG, old radiological studies, urgent care reports/EKG's, prison records)? Report findings @ -No old charts were reviewed Differential Diagnosis (chest pain, altered mental status, abdominal pain women, abdominal pain men, vaginal bleeding, weakness, fever, dyspnea, syncope, headach e, dizziness, GI bleed, back pain, seizure, CVA, palpatations, mental health, musculoskeletal)? @ -Differential Back Pain: Strain, zoster, cauda equina syndrome, epidural abscess, vertebral osteomyel itis, discitis, fracture, subluxation, disc herniation, DJD, spinal stenosis, dissection, AAA, pancreatitis, peptic ulcer disease, pyelonephritis, kidney stone, this is not meant to be an all-inclusive list. EKG interpreted by me (3pts min.). @ -As above X-rays interpreted by me (1pt min.). @ -None done CT interpreted by me (1pt min.). @ -CT abdomen pelvis reveals very mild uncomplicated diverticulitis of a short segment of descending colon U/S interpreted by me (1pt. min.). @ -None done What testing was considered but not performed or refused? (CT, X-rays, U/S, labs)? Why? @ -None What meds were considered but not given or refused? Why? @ -None Did you discuss the management of the patient with other professionals (professionals i.e. , PA, MERCHANDISE COORDINATOR, lab, RT, psych nurse, outreach and education social worker, head start director, teacher, artillery officer, corrections caseworker)? Give summary @ -No Was smoking cessation discussed for >3mins.? @ -No Was critical care preformed (if so, how long)? @ -No Were there social determinants of health that impacted care today? How? (Homelessness, low income, unemployed, alcoholism, drug addiction, transportation, low edu. Level, literacy, decrease access to med. care, snf, rehab)? @ -No Was there de-escalation of care discussed even if they declined (Discuss DNR or withdrawal of care, Hospice)? DNR status @ -No What co-morbidities impacted this encounter? (DM, HTN, Smoking, COPD, CAD, Cancer, CVA, ARF, Chemo, Hep., AIDS, mental health diagnosis, sleep apnea, morbid obesity)? @ -None Was patient admitted / discharged? Hospital course, mention meds given and route, prescriptions, significant lab abnormalities, going to OR and other pertinent info. @ - discharge. 59-year-old male presenting for left flank pain worsening over the past 2 months. Overall well-appearing. Patient is hypertensive otherwise vital signs within acceptable limits. Patient is afebrile with no CVA tende rness. Neurovascularly intact to all extremities. Abdomen soft nonsurgical. No red flag symptoms. Provided with IV fluid bolus, lidocaine patch, and Tylenol. Lab work and urinalysis largely unremarkable. Normal white blood cell count. CT abdomen pelvis reveals very mild uncomplicated diverticulitis of a short segment of descending colon. Results discussed with patient and . Patient will be prescribed course of Augmentin and advised bowel rest and clear liquid diet. Advised to follow-up with PCP this week for reevaluation. Appropriate return precautions discussed. Case was discussed with my ED attending Dr. Palafox. Undiagnosed new problem with uncertain prognosis? @ -No Drug Therapy requiring intensive monitoring for toxicity (Heparin, Nitro, Insulin, Cardizem)? @ -No Were any procedures done? @ -No Diagnosis/symptom? @ -Diverticulitis Acute, or Chronic, or Acute on Chronic? @ -Acute Uncomplicated (without systemic symptoms) or Complicated (systemic symptoms)? @ -Uncomplicated Side effects of treatment? @ -No Exacerbation, Progression, or Severe Exacerbation? @ -No Poses a threat to life or bodily function? How? (Chest pain, [place], [place], pneumonia, PE, COPD, DKA, ARF, appy, cholecystitis, CVA, Diverticulitis, Homicidal, Suicidal, threat to staff... and all critical care pts) @ -Not at this time - Lab Data Result diagrams: 02/09/25 12:46 02/09/25 12:46 Lab Results 02/09/25 02/09/25 02/09/25 Range/Units 12:46 12:46 12:46 WBC 5.87 (4.50-10.00) 10*3/uL RBC 6.42 H (4.40-5.60) 10*6/uL Hgb 16.7 (13.0-17.0) g/dL Hct 50.7 H (39.6-50.0) % MCV 79.0 L (80.0-97.0) fL MCH 26.0 L (27.0-32.0) pg MCHC 32.9 (32.0-37.0) g/dL Plt Count 242 (140-440) 10*3/uL MPV 10.6 (9.5-12.2) fL Immature Gran % (Auto) 0.3 % Neutrophils % 52.2 % Lymphocytes % 35.8 % Monocytes % 9.2 % Eosinophils % 2.0 % Basophils % 0.5 % Immature Gran # 0.02 (0.00-0.04) 10*3/uL Neutrophils # 3.06 (1.80-7.70) 10*3/uL Lymphocytes # 2.10 (0.90-5.00) 10*3/uL Monocytes # 0.54 (0.20-1.00) 10*3/uL Eosinophils # 0.12 (0.04-0.35) 10*3/uL Basophils # 0.03 (0.00-0.10) 10*3/uL PT 11.1 (10.0-12.5) sec INR 1.0 (<1.2) APTT 23.6 (22.0-30.0) sec Sodium 138 (137-145) mmol/L Potassium 4.9 (3.5-5.1) mmol/L Chloride 99 (98-107) mmol/L Carbon Dioxide 28 (22-30) mmol/L Anion Gap 11 mmol/L BUN 17 (9-20) mg/dL Creatinine 0.60 L (0.66-1.25) mg/dL Est GFR (CKD-EPI)AfAm >90 (>60 ml/min/1.73 sqM) Est GFR (CKD-EPI)NonAf >90 (>60 ml/min/1.73 sqM) Glucose 158 H (74-99) mg/dL Plasma Lactic Acid Shai (0.7-2.0) mmol/L Calcium 9.3 (8.4-10.2) mg/dL Total Bilirubin 0.8 (0.2-1.3) mg/dL AST 29 (17-59) U/L ALT 29 (4-49) U/L Alkaline Phosphatase 35 L (38-126) U/L Total Protein 7.7 (6.3-8.2) g/dL Albumin 4.6 (3.5-5.0) g/dL Lipase 232 (23-300) U/L Urine Color Urine Appearance (Clear) Urine pH (5.0-8.0) Ur Specific [place] (1.001-1.035) Urine Protein (Negative) Urine Glucose (UA) (Negative) Urine Ketones (Negative) Urine Blood (Negative) Urine Nitrite (Negative) Urine Bilirubin (Negative) Urine Urobilinogen (<2.0) mg/dL Ur Leukocyte Esterase (Negative) Urine RBC (0-5) /hpf Urine WBC (0-5) /hpf Urine Mucus (None) /hpf 02/09/25 02/09/25 Range/Units 12:46 14:00 WBC (4.50-10.00) 10*3/uL RBC (4.40-5.60) 10*6/uL Hgb (13.0-17.0) g/dL Hct (39.6-50.0) % MCV (80.0-97.0) fL MCH (27.0-32.0) pg MCHC (32.0-37.0) g/dL Plt Count (140-440) 10*3/uL MPV (9.5-12.2) fL Immature Gran % (Auto) % Neutrophils % % Lymphocytes % % Monocytes % % Eosinophils % % Basophils % % Immature Gran # (0.00-0.04) 10*3/uL Neutrophils # (1.80-7.70) 10*3/uL Lymphocytes # (0.90-5.00) 10*3/uL Monocytes # (0.20-1.00) 10*3/uL Eosinophils # (0.04-0.35) 10*3/uL Basophils # (0.00-0.10) 10*3/uL PT (10.0-12.5) sec INR (<1.2) APTT (22.0-30.0) sec Sodium (137-145) mmol/L Potassium (3.5-5.1) mmol/L Chloride (98-107) mmol/L Carbon Dioxide (22-30) mmol/L Anion Gap mmol/L BUN (9-20) mg/dL Creatinine (0.66-1.25) mg/dL Est GFR (CKD-EPI)AfAm (>60 ml/min/1.73 sqM) Est GFR (CKD-EPI)NonAf (>60 ml/min/1.73 sqM) Glucose (74-99) mg/dL Plasma Lactic Acid Shai 1.0 (0.7-2.0) mmol/L Calcium (8.4-10.2) mg/dL Total Bilirubin (0.2-1.3) mg/dL AST (17-59) U/L ALT (4-49) U/L Alkaline Phosphatase (38-126) U/L Total Protein (6.3-8.2) g/dL Albumin (3.5-5.0) g/dL Lipase (23-300) U/L Urine Color Yellow Urine Appearance Clear (Clear) Urine pH 5.5 (5.0-8.0) Ur Specific [place] 1.028 (1.001-1.035) Urine Protein 2+ H (Negative) Urine Glucose (UA) 1+ H (Negative) Urine Ketones Negative (Negative) Urine Blood Trace H (Negative) Urine Nitrite Negative (Negative) Urine Bilirubin Negative (Negative) Urine Urobilinogen <2.0 (<2.0) mg/dL Ur Leukocyte Esterase Negative (Negative) Urine RBC 1 (0-5) /hpf Urine WBC 1 (0-5) /hpf Urine Mucus Rare H (None) /hpf - EKG Data -: EKG Interpreted by Me EKG Comments: EKG reveals normal sinus rhythm with first-degree AV block. No acute ST changes. Ventricular rate 71 bpm, AR interval 268, QRS duration 117, QT/QTc 412/435 Disposition Clinical Impression: Diverticulitis Disposition: HOME SELF-CARE Condition: Stable Instructions (If sedation given, give patient instructions): Diverticulitis (ED), Diverticulitis Diet (ED) Additional Instructions: Take Augmentin as prescribed. Clear liquid diet for 2 to 3 days, then low fiber foods until symptoms improve. Please follow-up with your PCP this week for reevaluation. Please return to the Emergency Department if symptoms worsen or any other concerns. Prescriptions: Amoxic-Pot Clav 875-125Mg [Augmentin 875-125] 1 tab PO Q12HR #20 tab Is patient prescribed a controlled substance at d/c from ED?: No Referrals: Rupert Aguilar DO [Primary Care Provider] - 1-2 days Time of Disposition: 15:25
[2025-02-09 12:51] LABS: Basophils # (A) 0.03 10*3/uL (0.00-0.10); Basophils % (A) 0.5 %; Eosinophils # (A) 0.12 10*3/uL (0.04-0.35); Eosinophils % (A) 2.0 %; HCT 50.7 % (39.6-50.0); HGB 16.7 g/dL (13.0-17.0); Lymphocytes # (A) 2.10 10*3/uL (0.90-5.00); Lymphocytes % (A) 35.8 %; MCH 26.0 pg (27.0-32.0); MCHC 32.9 g/dL (32.0-37.0); MCV 79.0 fL (80.0-97.0); Monocytes # (A) 0.54 10*3/uL (0.20-1.00); Monocytes % (A) 9.2 %; Neutrophils # (A) 3.06 10*3/uL (1.80-7.70); Neutrophils % (A) 52.2 %; Platelet Count 242 10*3/uL (140-440); RBC 6.42 10*6/uL (4.40-5.60); RDW 14.5 % (11.5-14.5); WBC 5.87 10*3/uL (4.50-10.00)
[2025-02-09 12:58] VITALS: RESP 20
[2025-02-09] MEDS: LIDOCAINE 4% PATCH TOPICAL ONE (12:58)
[2025-02-09] MEDS: ACETAMINOPHEN TAB 500 MG TAB PO STA (13:00)
[2025-02-09] MEDS: SODIUM CHLORIDE 0.9% 1,000 ML IV STA (13:01)
[2025-02-09 13:04] LABS: ALT 29 U/L (4-49); African American GFR (CKD) >90 (>60 ml/min/1.73 sqM); Anion Gap 11 mmol/L; Blood Urea Nitrogen 17 mg/dL (9-20); Calcium 9.3 mg/dL (8.4-10.2); Carbon Dioxide 28 mmol/L (22-30); Chloride 99 mmol/L (98-107); Glucose 158 mg/dL (74-99); Lipase 232 U/L (23-300); Non-African American GFR(CKD) >90 (>60 ml/min/1.73 sqM); Sodium 138 mmol/L (137-145)
[2025-02-09 13:06] LABS: AST 29 U/L (17-59); Albumin 4.6 g/dL (3.5-5.0); Alkaline Phosphatase 35 U/L (38-126); Potassium 4.9 mmol/L (3.5-5.1); Total Protein 7.7 g/dL (6.3-8.2)
[2025-02-09 13:31] LABS: INR 1.0 (<1.2); Partial Thromboplastin Time 23.6 sec (22.0-30.0); Prothrombin Time 11.1 sec (10.0-12.5)
[2025-02-09 14:33] LABS: Bilirubin,Urine Negative (Negative); Blood,Urine Trace (Negative); Color,Urine Yellow; Glucose,Urine (UA) 1+ (Negative); Ketones,Urine Negative (Negative); Leukocyte Esterase,Urine Negative (Negative); Mucus,Urine Rare /hpf; Nitrite,Urine Negative (Negative); PH, Urine 5.5 (5.0-8.0); Protein,Urine 2+ (Negative); RBC,Urine 1 /hpf (0-5); Specific Gravity,Urine 1.028 (1.001-1.035); Urobilinogen,Urine <2.0 mg/dL (<2.0); WBC,Urine 1 /hpf (0-5)
--- NOTE | 2025-02-09 14:49 | CT ---
EXAMINATION TYPE: CT abdomen pelvis wo/w con CT DLP: 3477.5 mGycm, Automated exposure control for dose reduction was used. DATE OF EXAM: 02/09/2025 2:19 PM COMPARISON: CT abdomen/pelvis 07/19/2022 CLINICAL INDICATION:Male, 59 years old with history of Left flank pain; left flank pain TECHNIQUE: Axial CT abdomen pelvis wo/w con;Sagittal and coronal reformats were created on a [employer] workstation. Contrast used:100 ml mL of Isovue 300 without and with IV Contrast, (none if empty) Oral contrast used: without Oral Contrast (none if empty) FINDINGS: LOWER CHEST: Unremarkable ABDOMEN LIVER: Unremarkable GALLBLADDER AND BILE DUCTS: Unremarkable. PANCREAS: Unremarkable. SPLEEN: Unremarkable. ADRENAL GLANDS: Unremarkable. KIDNEYS AND URETERS: No evidence of hydronephrosis or renal calculus. The ureters are unremarkable. PELVIS BLADDER: Unremarkable REPRODUCTIVE: Unremarkable. ABDOMEN & PELVIS STOMACH AND BOWEL: Stomach is grossly unremarkable. The small bowel is of normal caliber.Scattered co lonic diverticula seen. There is subtle fat stranding surrounding diverticula of a short segment of d escending colon. No pneumatosis or pericolonic fluid collection. No evidence of bowel obstruction. PERITONEUM/RETROPERITONEUM: No evidence of pneumoperitoneum or free fluid. VASCULATURE: No evidence of aortic aneurysm. MUSCULOSKELETAL: No acute osseous abnormalities LYMPH NODES: No gross evidence for lymphadenopathy. SOFT TISSUE/ABDOMINAL WALL: Nonspecific soft tissue nodule is seen in the left lower flank subcutaneo us tissues likely representing a sebaceous cyst. IMPRESSION: Very mild uncomplicated diverticulitis of a short segment of descending colon. [facility], , 02/09/2025 2:47 PM
[2025-02-09 15:38] VITALS: BP 175/102; PULSE 72
[2025-02-09] MEDS: ONDANSETRON 4 MG/2 ML VIAL IVP STA (15:38)
[2025-02-09] MEDS: MORPHINE SULFATE 4 MG/ML SYRINGE IVP STA (15:41)
== END 2025-02-09 15:57 | disposition home or self-care (01) ==
LOC: EC 11:15 → SUPCPDRO 11:15 → EC 15:57
DX: K57.32 Diverticulitis of large intestine without perforation or abscess without bleeding (principal); Z86.73 Personal history of transient ischemic attack (TIA), and cerebral infarction without residual deficits; Z87.891 Personal history of nicotine dependence; Z88.6 Allergy status to analgesic agent
CPT/HCPCS: 36415; 93005; 80053; 83605; 83690; 85025; 85610; 85730; 81001; 74178; 99284; 96374; 96361; J2270; Q9967